=== PATIENT | male | born 1955 | race African-American/Black ===

== ENCOUNTER 2018-04-22 00:44 | Inpatient (IN) | payer OTHER ==
[2018-04-22 01:07] LABS: #Basophils 0.1 thou/uL (0.0-0.2); #Eosinphils 0.6 thou/uL (0.0-0.7); #Lymphocytes 3.3 thou/uL (1.20-3.40); #Monocytes 0.7 thou/uL (0.11-0.59); #Neutrophils 4.1 thou/uL (1.40-6.50); %Basophils 1.4 % (0.0-1.0); %Eosinophils 6.5 % (0.0-10.0); %Lymphocytes 37.4 % (21.0-51.0); %Neutrophils 46.6 % (42.0-75.0); Hemoglobin 13.2 g/dL (14.0-18.0); Mean Corpuscular Hemoglobin 26.5 pg (27.0-31.0); Mean Platelet Volume 9.3 fL (7.4-10.4); Platelet Count 180 thou/uL (130-400); Red Blood Cell (RBC) Count 4.96 mill/uL (4.70-6.10); White Blood Cell (WBC) Count 8.8 thou/uL (4.8-10.8)
[2018-04-22 01:15] LABS: Prothrombin Time 13.3 SEC (12.0-14.7)
[2018-04-22] MEDS ORDERED: Nitroglycerin 2% Ointment 1 INCH/1 GM Packet ONE (01:27)
[2018-04-22 01:29] LABS: ALT (SGPT) 18 U/L (8-55); AST (SGOT) 21 U/L (5-34); Albumin 4.2 g/dL (3.4-4.8); Alkaline Phosphatase 67 U/L (40-150); Anion Gap 12 mmol/L (10-20); BUN (Urea Nitrogen) 28 mg/dL (8.4-25.7); Bilirubin, Total 0.4 mg/dL (0.2-1.2); CK (CPK) 163 U/L (30-200); Calc. Creatinine Clearance 0 mL/min (70-130); Calcium 9.7 mg/dL (7.8-10.44); Carbon Dioxide 28 mmol/L (23-31); Chloride 102 mmol/L (98-107); Estimated GFR-MDRD 57; Globulin 3.8 g/dL (2.4-3.5); Glucose 145 mg/dL (80-115); Sodium 138 mmol/L (136-145)
[2018-04-22 01:32] LABS: CKMB 2.9 ng/mL (0-6.6); Troponin I 0.156 ng/mL (< 0.028)
[2018-04-22] MEDS ORDERED: Nitroglycerin 0.4 MG TAB (25 Tab Bottle) ONE (02:00)
[2018-04-22] MEDS ORDERED: Enoxaparin Sodium 100 MG/ML SYRINGE SC SCH (02:15)
[2018-04-22] MEDS ORDERED: Enoxaparin Sodium 60 MG/0.6 ML SYRINGE SC SCH (02:15)
[2018-04-22] MEDS ORDERED: Ondansetron ODT 4 MG TAB SL PRN (04:19)
[2018-04-22] MEDS ORDERED: Ondansetron PF 4 MG/2 ML Vial IVP PRN ×2 (04:19→07:06)
[2018-04-22] MEDS ORDERED: Acetaminophen 325 MG TAB PO PRN (04:19)
[2018-04-22] MEDS ORDERED: Nitroglycerin 0.4 MG TAB (25 Tab Bottle) SL PRN (04:20)
[2018-04-22] MEDS ORDERED: Sodium Chloride 0.9% 1,000 ML IV SCH (04:30)
[2018-04-22 05:10] LABS: Troponin I 0.188 ng/mL (< 0.028)
[2018-04-22] MEDS ORDERED: Dextrose 50% Abboject 50 ML SYRINGE SLOW IVP PRN (06:58)
[2018-04-22] MEDS ORDERED: Dextrose 5% in Water 1,000 ML IV PRN (06:58)
[2018-04-22] MEDS ORDERED: Insulin Regular 300 UNITS/3 ML VIAL SC PRN (06:58)
[2018-04-22] MEDS ORDERED: Eucerin (Mineral Oil/Petrolatum,White) 30 gm Jar TOP PRN (06:58)
[2018-04-22] MEDS ORDERED: Chloraseptic Spray 180 ml Bottle PO PRN (06:58)
[2018-04-22] MEDS ORDERED: Artificial Tears 18 DROP/0.9 ML EA EYE PRN (06:58)
[2018-04-22] MEDS ORDERED: hydrALAZINE 20 MG/ML VIAL SLOW IVP PRN (06:58)
[2018-04-22] MEDS ORDERED: Sodium Chloride 0.65% Nasal 44 ML BOT EA NARE PRN (06:58)
[2018-04-22] MEDS ORDERED: Loratadine 10 MG TAB PO PRN (06:58)
[2018-04-22] MEDS ORDERED: Diabetic Tussin 200 MG/10 ML UDCUP PO PRN (06:58)
[2018-04-22] MEDS ORDERED: Nitroglycerin 0.4 MG TAB (25 Tab Bottle) PO PRN (06:58)
[2018-04-22] MEDS ORDERED: Senokot S 8.6-50 MG TAB PO PRN (07:06)
[2018-04-22] MEDS ORDERED: Bisacodyl 10 MG SUPP PR PRN (07:06)
[2018-04-22] MEDS ORDERED: Loperamide HCl 2 MG CAP PO PRN (07:06)
[2018-04-22] MEDS ORDERED: Zolpidem Tartrate 5 MG TAB PO PRN (07:06)
[2018-04-22] MEDS ORDERED: Ondansetron ODT 4 MG TAB PO PRN (07:06)
[2018-04-22 07:34] LABS: Cardiac Risk 4.3 (Less than 4.5)
[2018-04-22 08:01] LABS: Troponin I 0.165 ng/mL (< 0.028)
--- NOTE | 2018-04-22 08:21 | RAD ---
CHEST ONE VIEW: History: Chest pain Comparison: 2014 FINDINGS: Heart size is mildly enlarged. Mild pulmonary venous congestion. No pneumothorax. No acute osseous abnormality. IMPRESSION: Cardiomegaly with mild pulmonary venous congestion. POS: [facility]
[2018-04-22] MEDS: Insulin Regular 300 UNITS/3 ML VIAL SC SCH ×2 (10:26→16:58)
[2018-04-22] MEDS: DorzolamidE/Timolol 2%/0.5% Ophth Soln 10 ml Bottle EA EYE SCH ×3 (10:27→21:01)
[2018-04-22] MEDS: Brimonidine Tartrate 0.2% Ophth Soln 5 ml Bottle EA EYE SCH ×3 (10:27→21:00)
[2018-04-22] MEDS: Amlodipine 10 MG TAB PO SCH (10:28)
[2018-04-22] MEDS: AcetaZOLAMIDE 250 MG TAB PO SCH ×2 (10:28→21:01)
[2018-04-22] MEDS: Allopurinol 300 MG TAB PO SCH (10:28)
[2018-04-22] MEDS: Aspirin 325 MG TAB PO SCH (10:29)
[2018-04-22] MEDS: Enoxaparin Sodium 40 MG/0.4 ML SYRINGE SC SCH (10:29)
[2018-04-22] MEDS: Famotidine 20 MG TAB PO SCH ×2 (10:29→21:03)
[2018-04-22] MEDS: Gabapentin 300 MG CAP PO SCH ×2 (10:30→21:04)
[2018-04-22] MEDS: Furosemide 40 MG TAB PO SCH (10:30)
--- NOTE | 2018-04-22 11:49 | HP ---
PRIMARY CARE PHYSICIAN: Dr. Kalpana Barbour. REASON FOR ADMISSION: Chest pain, elevated troponin. HISTORY OF PRESENT ILLNESS: A 62-year-old -[place] male who has underlying history of diabet es type 2, hypertension, dyslipidemia, morbid obesity, and coronary artery disease who presented to e mergealy room with complaint of chest pain. He described chest pain in substernal area which was sta rted yesterday evening time when he was seated in his chair. It was 4/10 in intensity. He was uncom fortable. He started walking in his room and that chest pain subsided and again when he sat to chair , he was having recurrent chest pain. He was not having any associated nausea or vomiting, but he wa s feeling mild shortness of breath. Pain was recurrent. Patient tried Pepto-Bismol at home without any significant help. He was feeling strange and that is why he decided to come to the emergency jo m for evaluation. In the emergency room, EKG was nonspecific. His troponin was slightly elevated. The patient was obs erved on observation floor. When I saw this morning, at that time, patient was chest pain free. He denies any immobilization. He denies any calf tenderness. He denies any pleurisy. He denies any he moptysis. He denies any fever or chills. He denies any upper respiratory infection. He denies any muscle tenderness. REVIEW OF SYSTEMS: The following complete review of systems was negative, unless otherwise mentioned in the HPI or below: Constitutional: Weight loss or gain, ability to conduct usual activities. Skin: Rash, itching. Eyes: Double vision, pain. ENT/Mouth: Nose bleeding, neck stiffness, pain, tenderness. Cardiovascular: Palpitations, dyspnea on exertion, orthopnea. Respiratory: Shortness of breath, wheezing, cough, hemoptysis, fever or night sweats. Gastrointestinal: Poor appetite, abdominal pain, heartburn, nausea, vomiting, constipation, or diarr hea. Genitourinary: Urgency, frequency, dysuria, nocturia. Musculoskeletal: Pain, swelling. Neurologic/Psychiatric: Anxiety, depression. Allergy/Immunologic: Skin rash, bleeding tendency. Please see my HPI for pertinent positive and negative. All other review of systems reviewed and nega tive except as mentioned in the HPI. PAST MEDICAL HISTORY: Diabetes type 2, hypertension, dyslipidemia, morbid obesity, gout, multiple ke loid, rheumatoid arthritis, osteoarthritis, glaucoma. PAST SURGICAL HISTORY: Cholecystectomy, tonsillectomy. PAST PSYCHIATRIC HISTORY: Reviewed and negative. SOCIAL HISTORY: Patient is and lives at home with his . No history of smoking. No hist ory of alcohol or other illicit drug abuse. FAMILY HISTORY: Diabetes and hypertension runs among several family members. Mother had a cancer an d she when patient was 8 years old. ALLERGIES: CODEINE. EMERGENCY ROOM COURSE: Patient is given Lovenox 1 mg per kg, nitroglycerin 0.4 mg sublingual, aspiri n 324 mg and nitropatch was applied. CURRENT HOME MEDICATIONS: Diamox 250 mg p.o. b.i.d., allopurinol 300 mg p.o. daily, amlodipine 10 mg p.o. daily, aspirin 81 mg p.o. daily, brimonidine ophthalmic drop t.i.d., dorzolamide with timolol o phthalmic drop t.i.d., TriCor 160 mg p.o. at bedtime, Lasix 40 mg p.o. daily, gabapentin 300 mg p.o. b.i.d., Humulin R 12 units subcu b.i.d., Xalatan eye drops at bedtime, metformin 500 mg p.o. b.i.d., pravastatin 80 mg p.o. at bedtime, quinapril 40 mg p.o. daily. PHYSICAL EXAMINATION: VITAL SIGNS: On arrival, blood pressure 148/78, pulse 76, respiratory rate 20, temperature 98.4, sat uration 100% on room air, weight 146.4 kilograms. GENERAL: Patient is currently alert, awake, no obvious acute distress. HEAD: Normocephalic, atraumatic. EYES: Pupils round, reactive to light. Extraocular muscle intact. ENT: Oropharynx within normal limits. Moist mucous membranes, no oral lesion, no pharyngeal erythem a, no exudate. NECK: Supple, no JVD, no thyromegaly, no carotid bruit, no jugular venous distention. LUNGS: Clear to auscultation without any rhonchi or rales. CARDIAC: S1, S2 regular. No murmur, no gallop, no rub. ABDOMEN: Obesity present. Bowel sounds present, nontender, nondistended. No organomegaly, no mass, no suprapubic tenderness. BACK: Examination unremarkable, no CVA tenderness. EXTREMITIES: Upper extremity passive movements of all joints are normal. Lower extremities: No ravinder ma. Good distal pulsation. SKIN: No skin rash. HEMATOLOGICAL SYSTEM: No lymphadenopathy. NEUROLOGIC: Nonfocal examination. IMAGING DATA AND SIGNIFICANT LABORATORY DATA: EKG showing normal sinus rhythm, low voltage QRS compl ex. CBC: WBC 8.8, hemoglobin 13.0, platelet 180. INR 1.0. BMP: Sodium 138, potassium 4.0, chlori de 102, carbon dioxide 28, anion gap 12, BUN 28, creatinine 1.50, glucose 145, calcium 9.7. LFT: T 21, ALT 18, alkaline phosphatase 67, albumin 4.2. CK 163, CK-MB 2.9, troponin 0.156 and then 0.188 . BNP 50.2. Triglyceride 106, cholesterol 164, LDL 105, HDL 38. Chest x-ray based on my review, no acute cardiopulmonary process. ASSESSMENT AND PLAN/IMPRESSION: 1. Chest pain. This patient's chest pain is atypical. He has multiple risk factors for coronary ar antoni disease. He has nonspecific EKG changes. His troponin is indeterminant range. Based on overal l scenario, patient has high JEFFERSON score and that is why we decided to consult Cardiology. Cardiology evaluated this patient and planned for stress test. We will also obtain echocardiography. For risk stratification, we did lipid profile check which is within normal limit. At this point, the patient is chest pain free. We will continue with aspirin 325 mg p.o. daily, Lipitor 20 mg p.o. at bedtime. Patient already received Lovenox 1 mg per kg in the emergency room. 2. Hypertension. Continue amlodipine 10 mg p.o. daily, Lasix 40 mg p.o. daily, quinapril 40 mg p.o. daily. 3. Glaucoma. Continue Diamox 250 mg p.o. b.i.d. along with dorzolamide, timolol ophthalmic drop, br imonidine ophthalmic drop and Xalatan eyedrop as per home dosage. 4. Dyslipidemia, currently within normal limit. Continue pravastatin 80 mg p.o. at bedtime. 5. Diabetic neuropathy. Continue gabapentin 300 mg p.o. b.i.d. 6. Gout. Continue allopurinol 300 mg p.o. daily. 7. Chronic kidney disease stage 3. Monitor renal function and avoid nephrotoxic agent. 8. Elevated troponin. We will obtain echocardiography. 9. Morbid obesity with BMI of 51. Dietary education given, weight loss education given. Healthy li festyle measures discussed with the patient. 10. Deep venous thrombosis prophylaxis, Lovenox 40 mg subcu daily. 11. Gastrointestinal prophylaxis, Pepcid 20 mg p.o. b.i.d. CODE STATUS: Patient is FULL CODE. Patient's is surrogate decision maker. Disposition plan based on above-mentioned investigation result.
[2018-04-22] MEDS ORDERED: Regadenoson 0.4 MG/5 ML SYRINGE ONE (12:13)
[2018-04-22] MEDS: Acetaminophen 325 MG TAB PO PRN (16:57)
--- NOTE | 2018-04-22 20:49 | CON ---
DATE OF CONSULTATION: 04/22/2018 INDICATION FOR CONSULTATION: A 62-year-old patient with chest pain and slightly abnormal cardiac enz ymes. HISTORY OF PRESENT ILLNESS: This is a very pleasant 62-year-old gentleman who has a history of type 2 diabetes, hypertension, dyslipidemia, obesity, and some question of coronary artery disease; valentina[place] r, there is no documentation that he has had coronary artery disease in the past. He has not had any cardiac catheterization that he is aware of. Yesterday, he started having some burning-type sensati on in the right chest area. He got up and walked around and the pain improved. He then sat back [place] n, and the pain then returned. He also had some shortness of breath associated with it and then he p resented to the emergency room. Otherwise, he has been asymptomatic. He has had no further discomfo rt. His cardiac enzymes are indeterminate. They did increase from 0.156 up to 0.188 and now decreas ed back down to 0.165. MBs were negative. He does have hypercholesterolemia. LDL was 105. EKG is nonspecific. PAST MEDICAL HISTORY: Significant for hypertension, diabetes, hypercholesterolemia, obesity. He has had keloid removal from the left side of his face. He has arthritis. He has glaucoma. He has had bilateral cataract surgery. He had a history of pneumonia about 12 years ago. SOCIAL HISTORY: He is . He has no history of tobacco abuse or alcohol use. He said he did s moke for about a year or two, but that was many years ago. FAMILY HISTORY: Unremarkable for any early coronary artery disease. He does have some history of di abetes and hypertension in the family. MEDICATIONS PRIOR TO ADMISSION: Diamox, allopurinol, amlodipine, aspirin, brimonidine ophthalmic rui ps, dorzolamide ophthalmic drops with timolol, TriCor, Lasix, gabapentin, Humulin insulin, Xalatan op hthalmic drops, metformin, pravastatin, quinapril. ALLERGIES: He is allergic to CODEINE. REVIEW OF SYSTEMS: Twelve-point review of systems is relatively unremarkable except he does wear gla sses, he has left knee pain, and he complained of the right-sided chest discomfort. Otherwise, his r eview of systems is unremarkable. PHYSICAL EXAMINATION: GENERAL: Reveals a morbidly obese gentleman. VITAL SIGNS: Blood pressure 136/69, heart rate is 72 and regular. He is afebrile. Respiratory rate is 20, O2 saturation 98%. HEENT: Shows the head to be normocephalic and atraumatic. NECK: Carotid pulses are present. There were no significant bruits noted. There is no obvious JVD. The thyroid did not appear to be enlarged. CHEST: Clear to auscultation without rales, rhonchi, or wheezing. CARDIOVASCULAR: Regular rate and rhythm. Heart sounds are somewhat distant. I cannot hear any S3 o r S4 nor could I hear any significant murmurs, heaves, thrills, bruits, or rubs. ABDOMEN: Morbid obesity. Positive bowel sounds are present. I cannot palpate any particular masses . There is no tenderness noted. EXTREMITIES: No clubbing, cyanosis. He had very trace edema. He also had positive pedal pulses. SKIN: Warm and dry. NEUROLOGIC: Appears to be intact. He has normal strength and tone. LABORATORY DATA: Hemoglobin of 13.2, WBC of 8.8, platelet count 180,000. Creatinine is 1.5 with a B UN of 28. Blood sugar is 145 to 215. Potassium is 4. MBs are 2.9. Troponin I is as noted above. LDL was 105, HDL was 38, and triglyceride level was 106. IMPRESSION: 1. Morbidly obese gentleman with risk factors for coronary artery disease. He complained of right-s ided burning-type sensation in the chest with some indeterminate cardiac enzymes. He will undergo st ress testing to rule out evidence for underlying coronary artery disease. If any is found, he will n eed to undergo a cardiac catheterization. 2. Diabetes. This will be dealt with by the primary care service. 3. Hypertension. This is under good control at this time and I would agree with the present medicat ions. 4. Diabetes. 5. Hypercholesterolemia. He should continue on some statin medications. I have advised the patient that he needs to lose probably 100 to 150 pounds. We will continue to follow the patient with you. Further recommendations will depend on the results of the stress test. Also, please note, he does h ave some mild chronic kidney disease with a creatinine of 1.5, most likely related to his diabetes.
[2018-04-22] MEDS: Fenofibrate Nanocrystallized 145 MG TAB PO SCH (21:03)
[2018-04-22] MEDS: Atorvastatin Calcium 20 MG TAB PO SCH (21:03)
[2018-04-22] MEDS: Insulin Regular 300 UNITS/3 ML VIAL SC PRN (21:05)
[2018-04-22] MEDS: Latanoprost 0.005% Ophth Soln 2.5 ml Bottle EA EYE SCH (22:00)
[2018-04-23] MEDS: Insulin Regular 300 UNITS/3 ML VIAL SC SCH ×2 (09:17→16:29)
[2018-04-23] MEDS: AcetaZOLAMIDE 250 MG TAB PO SCH ×2 (09:17→20:31)
[2018-04-23] MEDS: Amlodipine 10 MG TAB PO SCH (09:17)
[2018-04-23] MEDS: Allopurinol 300 MG TAB PO SCH (09:18)
[2018-04-23] MEDS: Aspirin 325 MG TAB PO SCH (09:18)
[2018-04-23] MEDS: Acetaminophen 325 MG TAB PO PRN (09:19)
[2018-04-23] MEDS: Famotidine 20 MG TAB PO SCH ×2 (09:19→20:31)
[2018-04-23] MEDS: Gabapentin 300 MG CAP PO SCH ×2 (09:19→20:31)
[2018-04-23] MEDS: Enoxaparin Sodium 40 MG/0.4 ML SYRINGE SC SCH (09:19)
[2018-04-23] MEDS: Furosemide 40 MG TAB PO SCH (09:19)
[2018-04-23] MEDS: Brimonidine Tartrate 0.2% Ophth Soln 5 ml Bottle EA EYE SCH ×3 (09:20→20:31)
[2018-04-23] MEDS: DorzolamidE/Timolol 2%/0.5% Ophth Soln 10 ml Bottle EA EYE SCH ×3 (09:20→20:31)
--- NOTE | 2018-04-23 09:27 | NM ---
NUCLEAR MEDICINE STRESS WITH EF AND WALL MOTION: HISTORY: Chest pain. Hypertension. Hyperlipidemia. TECHNIQUE: The patient was administered 33 mCi of Technetium 99m sestamibi for rest and stress imaging. FINDINGS: There is reversibility involving the anteroseptal left ventricle near the apex. TID is 1.25. End-diastolic volume is 105 mL. End-systolic volume is 48 mL. CARDIAC GATING: Normal motion and thickening. 55% ejection fraction. IMPRESSION: Reversibility involving the anteroseptal wall of the left ventricle. POS: [facility]
--- NOTE | 2018-04-23 09:31 | EKG ---
Test Reason : Blood Pressure : / mmHG Vent. Rate : 068 BPM Atrial Rate : 068 BPM P-R Int : 140 ms QRS Dur : 086 ms QT Int : 394 ms P-R-T Axes : 062 039 032 degrees QTc Int : 418 ms Normal sinus rhythm with sinus arrhythmia Low voltage QRS Nonspecific T wave abnormality Abnormal ECG When compared with ECG of 22-APR-2018 00:51, (Unconfirmed) No significant change was found Confirmed by DIOR WALL ([id number]) on 04/23/2018 9:31:16 AM Referred By: Confirmed By:DIOR WALL
--- NOTE | 2018-04-23 10:28 | PDOC.PN ---
- Subjective Encounter Start Date: 04/23/18 Encounter Start Time: 07:30 -: old records requested/rev Patient seen and examined. No new complaints. No overnight events last night he had chest pain - Objective Resuscitation Status: Resuscitation Status FULL:Full Resuscitation MAR Reviewed: Yes Vital Signs & Weight: Vital Signs (12 hours) Temp Pulse Resp BP BP Pulse Ox 04/23/18 09:18 144/68 H 04/23/18 09:17 80 144/68 H 04/23/18 09:07 97.7 F 80 16 144/68 H 98 04/23/18 04:15 97.8 F 63 20 102/50 L 97 04/22/18 23:41 97.6 F 59 L 12 107/55 L 95 Weight Weight 367 lb I&O: 04/22/18 04/23/18 04/24/18 06:59 06:59 06:59 Intake Total 100 1564 Output Total 450 1625 Balance -350 -61 Result Diagrams: 04/22/18 00:57 04/22/18 00:57 Additional Labs: Accuchecks 04/23/18 04/22/18 04/22/18 06:13 20:22 16:40 POC Glucose 196 H 243 H 238 H Radiology Reviewed by me: Yes (stress test abnormal) EKG Reviewed by me: Yes (nsr) Phys Exam - Physical Examination Constitutional: NAD HEENT: PERRLA, moist MMs, sclera anicteric Neck: no JVD, supple Respiratory: no wheezing, no rales, no rhonchi Cardiovascular: RRR, no significant murmur, no rub Gastrointestinal: soft, non-tender, no distention, positive bowel sounds Musculoskeletal: no edema, pulses present Neurological: non-focal, normal sensation, moves all 4 limbs Lymphatic: no nodes Psychiatric: normal affect, A&O x 3 Skin: no rash, normal turgor Dx/Plan (1) Elevated troponin Code(s): R74.8 - ABNORMAL LEVELS OF OTHER SERUM ENZYMES Status: Acute (2) Chest pain Code(s): R07.9 - CHEST PAIN, UNSPECIFIED Status: Acute (3) Abnormal stress test Status: Acute (4) Diabetes type 2, controlled Code(s): E11.9 - TYPE 2 DIABETES MELLITUS WITHOUT COMPLICATIONS Status: Chronic (5) Diabetic neuropathy Code(s): E11.40 - TYPE 2 DIABETES MELLITUS WITH DIABETIC NEUROPATHY, UNSP Status: Chronic (6) Dyslipidemia Code(s): E78.5 - HYPERLIPIDEMIA, UNSPECIFIED Status: Chronic (7) Glaucoma Code(s): H40.9 - UNSPECIFIED GLAUCOMA Status: Chronic (8) Gout Code(s): M10.9 - GOUT, UNSPECIFIED Status: Chronic (9) HTN (hypertension) Code(s): I10 - ESSENTIAL (PRIMARY) HYPERTENSION Status: Chronic (10) Morbid obesity with BMI of 50.0-59.9, adult Code(s): E66.01 - MORBID (SEVERE) OBESITY DUE TO EXCESS CALORIES; Z68.43 - BODY MASS INDEX (BMI) 50-59.9, ADULT Status: Chronic - Plan cont current plan of care, plan discussed w/ family * cardiology on board for abnormal stress test result * may need cardiac cath * medication reviewed as below * symptomatic treatment. Review of Systems - Review of Systems ENT: negative: Ear Pain, Ear Discharge, Nose Pain, Nose Discharge, Nose Congestion, Mouth Pain, Mouth Swelling, Throat Pain, Throat Swelling, Other Respiratory: negative: Cough, Dry, Shortness of Breath, Hemoptysis, SOB with Excertion, Pleuritic Pain, Sputum, Wheezing Cardiovascular: negative: chest pain, palpitations, orthopnea, paroxysmal nocturnal dyspnea, edema, light headedness, other Gastrointestinal: negative: Nausea, Vomiting, Abdominal Pain, Diarrhea, Constipation, Melena, Hematochezia, Other Genitourinary: negative: Dysuria, Frequency, Incontinence, Hematuria, Retention , Other Musculoskeletal: negative: Neck Pain, Shoulder Pain, Arm Pain, Back Pain, Hand Pain, Leg Pain, Foot Pain, Other Skin: negative: Rash, Lesions, David, Bruising, Other - Medications/Allergies Allergies/Adverse Reactions: Allergies Allergy/AdvReac Type Severity Reaction Status Date / Time codeine Allergy itching Verified 04/22/18 04:32 Medications: Current Medications Acetaminophen (Tylenol) 650 mg PO Q4H PRN PRN Reason: Headache/Fever/Mild Pain (1-3) Last Admin: 04/23/18 09:19 Dose: 650 mg Acetazolamide (Diamox) 250 mg PO BID [facility] Last Admin: 04/23/18 09:17 Dose: 250 mg Allopurinol (Zyloprim) 300 mg PO DAILY [facility] Last Admin: 04/23/18 09:18 Dose: 300 mg Amlodipine Besylate (Norvasc) 10 mg PO DAILY [facility] Last Admin: 04/23/18 09:17 Dose: 10 mg Artificial Tears (Tears Naturale) 0 drop EA EYE PRN PRN PRN Reason: Dry Eyes Aspirin (Aspirin) 325 mg PO DAILY [facility] Last Admin: 04/23/18 09:18 Dose: 325 mg Atorvastatin Calcium (Lipitor) 20 mg PO HS [facility] Last Admin: 04/22/18 21:03 Dose: 20 mg Bisacodyl (Dulcolax) 10 mg NC DAILYPRN PRN PRN Reason: Constipation Brimonidine Tartrate (Alphagan 0.2% Ophth Soln) 1 drop EA EYE TID [facility] Last Admin: 04/23/18 09:20 Dose: 1 drop Dextrose/Water (Dextrose 50%) 25 gm SLOW IVP PRN PRN PRN Reason: Hypoglycemia Dorzolamide/Timolol (Cosopt 2-0.5% Ophth Soln) 1 drop EA EYE TID [facility] Last Admin: 04/23/18 09:20 Dose: 1 drop Enoxaparin Sodium (Lovenox) 40 mg SC 0900 [facility] Last Admin: 04/23/18 09:19 Dose: 40 mg Famotidine (Pepcid) 20 mg PO BID [facility] Last Admin: 04/23/18 09:19 Dose: 20 mg Fenofibrate (Tricor) 145 mg PO [facility] Last Admin: 04/22/18 21:03 Dose: 145 mg Furosemide (Lasix) 40 mg PO DAILY [facility] Last Admin: 04/23/18 09:19 Dose: 40 mg Gabapentin (Neurontin) 300 mg PO BID [facility] Last Admin: 04/23/18 09:19 Dose: 300 mg Glucagon (Glucagon) 1 mg IM PRN PRN PRN Reason: Hypoglycemia Guaifenesin (Robitussin Sf) 200 mg PO Q4H PRN PRN Reason: Cough Hydralazine HCl (Apresoline) 10 mg SLOW IVP Q4H PRN PRN Reason: Systolic BP > 180 Dextrose/Water (D5w) 1,000 mls @ 0 mls/hr IV .Q0M PRN PRN Reason: Hypoglycemia Insulin Human Regular (Humulin R) 12 units SC BID-[facility] Last Admin: 04/23/18 09:17 Dose: 12 unit Insulin Human Regular (Humulin R) 0 units SC .MODERATE SLIDING SC PRN PRN Reason: Moderate Correctional Scale Insulin Human Regular (Humulin R) 0 units SC .BEDTIME SLIDING SC PRN PRN Reason: Bedtime Correctional Scale Last Admin: 04/22/18 21:05 Dose: 2 unit Latanoprost (Xalatan 0.005% Ophth Soln) 1 drop EA EYE HS [facility] Last Admin: 04/22/18 22:00 Dose: Not Given Loperamide HCl (Imodium) 2 mg PO PRN PRN PRN Reason: Diarrhea/Loose Stools Loratadine (Claritin) 10 mg PO DAILYPRN PRN PRN Reason: Sinus Symptoms Mineral Oil/White Petrolatum (Eucerin Cream) 0 gm TOP BIDPRN PRN PRN Reason: Dry Skin Nitroglycerin (Nitrostat) 0.4 mg PO Q5MIN PRN PRN Reason: Chest Pain Ondansetron HCl (Zofran Odt) 4 mg PO Q6H PRN PRN Reason: Nausea/Vomiting Ondansetron HCl (Zofran) 4 mg IVP Q6H PRN PRN Reason: Nausea/Vomiting Phenol (Chloraseptic [place] 180 Ml Bot) 0 ml PO PRN PRN PRN Reason: Sore Throat Quinapril HCl (Accupril) 40 mg PO DAILY [facility] Last Admin: 04/23/18 09:18 Dose: 40 mg Senna/Docusate Sodium (Senokot S) 2 tab PO BID PRN PRN Reason: Constipation Sodium Chloride ([place] Nasal [place] 0.65%) 0 ml EA NARE QIDPRN PRN PRN Reason: Nasal Congestion Zolpidem Tartrate (Ambien) 5 mg PO HSPRN PRN PRN Reason: Insomnia
[2018-04-23] MEDS ORDERED: Communication Order-Pharmacy FS SCH (11:15)
--- NOTE | 2018-04-23 11:19 | PDOC.CTH ---
Cardiology Progress Note - Subjective Pt. seen and eval. by me. No new events overnight. Stress test abnormal . Reversible ischemia in the anterior. - Objective Vital Signs Temp Pulse Resp BP BP Pulse Ox 04/23/18 09:18 144/68 H 04/23/18 09:17 80 144/68 H 04/23/18 09:07 97.7 F 80 16 144/68 H 98 04/23/18 04:15 97.8 F 63 20 102/50 L 97 04/22/18 23:41 97.6 F 59 L 12 107/55 L 95 Weight 367 lb 04/22/18 04/23/18 04/24/18 06:59 06:59 06:59 Intake Total 100 1564 240 Output Total 450 1625 Balance -350 -61 240 - Physical Examination General/Neuro: alert & oriented x3 Neck: carotid US brisk Lungs: CTA Heart: RRR Abdomen: NT/ND - Telemetry Telemetry Rhythm: NSR - Labs Result Diagrams: 04/22/18 00:57 04/22/18 00:57 Troponin/CKMB CK-MB (CK-2) 2.9 ng/mL (0-6.6) 04/22/18 00:57 Troponin I 0.165 ng/mL (< 0.028) H 04/22/18 07:23 - Assessment/Plan 1.Chest pain, abn. stress test. Plan for cardiac cath in AM. procedure and risks explained to pt. 2. CKdz.Add IV fluids prior to the cath. 3. Morbid obesity. 4. DM Peripheral neuropathy 5. HTN
[2018-04-23] MEDS: Sodium Chloride 0.45% 1,000 ML IV SCH ×2 (11:57→23:52)
[2018-04-23] MEDS: Fenofibrate Nanocrystallized 145 MG TAB PO SCH (20:31)
[2018-04-23] MEDS: Atorvastatin Calcium 20 MG TAB PO SCH (20:31)
[2018-04-23] MEDS: Latanoprost 0.005% Ophth Soln 2.5 ml Bottle EA EYE SCH (20:32)
[2018-04-23] MEDS: Insulin Regular 300 UNITS/3 ML VIAL SC PRN (20:38)
[2018-04-24] MEDS: Acetaminophen 325 MG TAB PO PRN ×2 (03:27→20:39)
[2018-04-24] MEDS: Amlodipine 10 MG TAB PO SCH (06:02)
[2018-04-24] MEDS: Aspirin 325 MG TAB PO SCH (06:02)
[2018-04-24] MEDS: AcetaZOLAMIDE 250 MG TAB PO SCH ×2 (06:02→20:35)
[2018-04-24] MEDS: Allopurinol 300 MG TAB PO SCH (06:02)
[2018-04-24] MEDS: Gabapentin 300 MG CAP PO SCH ×2 (06:03→20:36)
[2018-04-24] MEDS: Famotidine 20 MG TAB PO SCH ×2 (06:03→20:35)
[2018-04-24 08:03] LABS: Anion Gap 9 mmol/L (10-20); BUN (Urea Nitrogen) 19 mg/dL (8.4-25.7); Calc. Creatinine Clearance 146 mL/min (70-130); Calcium 9.3 mg/dL (7.8-10.44); Carbon Dioxide 25 mmol/L (23-31); Chloride 105 mmol/L (98-107); Estimated GFR-MDRD 74; Glucose 242 mg/dL (80-115); Potassium 3.9 mmol/L (3.5-5.1); Sodium 135 mmol/L (136-145)
[2018-04-24] MEDS: Insulin Regular 300 UNITS/3 ML VIAL SC SCH ×2 (08:17→16:58)
[2018-04-24] MEDS: Furosemide 40 MG TAB PO SCH (08:19)
[2018-04-24] MEDS: Brimonidine Tartrate 0.2% Ophth Soln 5 ml Bottle EA EYE SCH ×3 (08:21→20:35)
[2018-04-24] MEDS ORDERED: Lidocaine 1% (PF) 30 ML VIAL ONE (08:45)
[2018-04-24] MEDS: DorzolamidE/Timolol 2%/0.5% Ophth Soln 10 ml Bottle EA EYE SCH ×3 (08:50→20:36)
[2018-04-24] MEDS ORDERED: Nitroglycerin 100MG/250ML BOT 250 ML ONE (09:29)
[2018-04-24] MEDS ORDERED: Verapamil 5 MG/2 ML VIAL ONE (09:29)
[2018-04-24] MEDS ORDERED: Iopamidol 370 76% 100 ML VIAL ONE (09:29)
[2018-04-24] MEDS ORDERED: Heparin 10,000 UNITS/1 ML VIAL ONE (09:29)
[2018-04-24] MEDS ORDERED: Nitroglycerin 0.4 MG TAB (25 Tab Bottle) SL PRN (11:05)
[2018-04-24] MEDS ORDERED: Sodium Chloride 0.9% 200 ML IV PRN (11:05)
--- NOTE | 2018-04-24 11:30 | PDOC.PN ---
- Subjective Encounter Start Date: 04/24/18 Encounter Start Time: 07:15 pt had cardiac cath and found with 3 vessel cad, he is feeling fine this morning - Objective Resuscitation Status: Resuscitation Status FULL:Full Resuscitation MAR Reviewed: Yes Vital Signs & Weight: Vital Signs (12 hours) Temp Pulse Resp BP BP BP Pulse Ox 04/24/18 11:19 77 14 04/24/18 11:18 97.8 F 75 18 114/71 97 04/24/18 10:28 86 14 158/79 H 98 04/24/18 07:34 98 F 63 20 119/56 L 96 04/24/18 03:10 98.2 F 70 20 132/68 98 Weight Weight 367 lb 1.6 oz I&O: 04/23/18 04/24/18 04/25/18 06:59 06:59 06:59 Intake Total 1564 2931 Output Total 1625 1025 Balance -61 1906 Result Diagrams: 04/22/18 00:57 04/24/18 07:32 Additional Labs: Accuchecks 04/24/18 04/24/18 04/23/18 10:38 06:01 20:33 POC Glucose 233 H 233 H 307 H 04/23/18 04/23/18 16:21 11:55 POC Glucose 231 H 251 H EKG Reviewed by me: Yes (nsr) Phys Exam - Physical Examination Constitutional: NAD HEENT: PERRLA, moist MMs, sclera anicteric Neck: no JVD, supple Respiratory: no wheezing, no rales, no rhonchi Cardiovascular: RRR, no significant murmur, no rub Gastrointestinal: soft, non-tender, no distention, positive bowel sounds Musculoskeletal: no edema, pulses present Neurological: non-focal, normal sensation, moves all 4 limbs Lymphatic: no nodes Psychiatric: normal affect, A&O x 3 Skin: no rash, normal turgor Dx/Plan (1) Abnormal stress test Status: Acute (2) Chest pain Code(s): R07.9 - CHEST PAIN, UNSPECIFIED Status: Acute (3) Diabetes type 2, controlled Code(s): E11.9 - TYPE 2 DIABETES MELLITUS WITHOUT COMPLICATIONS Status: Chronic (4) Diabetic neuropathy Code(s): E11.40 - TYPE 2 DIABETES MELLITUS WITH DIABETIC NEUROPATHY, UNSP Status: Chronic (5) Dyslipidemia Code(s): E78.5 - HYPERLIPIDEMIA, UNSPECIFIED Status: Chronic (6) Glaucoma Code(s): H40.9 - UNSPECIFIED GLAUCOMA Status: Chronic (7) Gout Code(s): M10.9 - GOUT, UNSPECIFIED Status: Chronic (8) HTN (hypertension) Code(s): I10 - ESSENTIAL (PRIMARY) HYPERTENSION Status: Chronic (9) Morbid obesity with BMI of 50.0-59.9, adult Code(s): E66.01 - MORBID (SEVERE) OBESITY DUE TO EXCESS CALORIES; Z68.43 - BODY MASS INDEX (BMI) 50-59.9, ADULT Status: Chronic - Plan cont current plan of care, plan discussed w/ family * will change to inpt status * CT surgery consulted for CABG evaluation * medication reviewed as below * symptomatic treatment * discussed with family. Review of Systems - Review of Systems Eyes: negative: Pain, Vision Change, Conjunctivae Inflammation, Eyelid Inflammation, Redness, Other ENT: negative: Ear Pain, Ear Discharge, Nose Pain, Nose Discharge, Nose Congestion, Mouth Pain, Mouth Swelling, Throat Pain, Throat Swelling, Other Respiratory: negative: Cough, Dry, Shortness of Breath, Hemoptysis, SOB with Excertion, Pleuritic Pain, Sputum, Wheezing Cardiovascular: negative: chest pain, palpitations, orthopnea, paroxysmal nocturnal dyspnea, edema, light headedness, other Gastrointestinal: negative: Nausea, Vomiting, Abdominal Pain, Diarrhea, Constipation, Melena, Hematochezia, Other Genitourinary: negative: Dysuria, Frequency, Incontinence, Hematuria, Retention , Other Musculoskeletal: negative: Neck Pain, Shoulder Pain, Arm Pain, Back Pain, Hand Pain, Leg Pain, Foot Pain, Other - Medications/Allergies Allergies/Adverse Reactions: Allergies Allergy/AdvReac Type Severity Reaction Status Date / Time codeine Allergy itching Verified 04/22/18 04:32 Medications: Current Medications Acetaminophen (Tylenol) 650 mg PO Q4H PRN PRN Reason: Headache/Fever/Mild Pain (1-3) Last Admin: 04/24/18 03:27 Dose: 650 mg Acetazolamide (Diamox) 250 mg PO BID [facility] Last Admin: 04/24/18 06:02 Dose: 250 mg Allopurinol (Zyloprim) 300 mg PO DAILY [facility] Last Admin: 04/24/18 06:02 Dose: 300 mg Amlodipine Besylate (Norvasc) 10 mg PO DAILY [facility] Last Admin: 04/24/18 06:02 Dose: 10 mg Artificial Tears (Tears Naturale) 0 drop EA EYE PRN PRN PRN Reason: Dry Eyes Aspirin (Aspirin) 325 mg PO DAILY [facility] Last Admin: 04/24/18 06:02 Dose: 325 mg Atorvastatin Calcium (Lipitor) 20 mg PO HS [facility] Last Admin: 04/23/18 20:31 Dose: 20 mg Bisacodyl (Dulcolax) 10 mg [place] DAILYPRN PRN PRN Reason: Constipation Brimonidine Tartrate (Alphagan 0.2% Ophth Soln) 1 drop EA EYE TID [facility] Last Admin: 04/24/18 08:21 Dose: 1 drop Dextrose/Water (Dextrose 50%) 25 gm SLOW IVP PRN PRN PRN Reason: Hypoglycemia Dorzolamide/Timolol (Cosopt 2-0.5% Oph Soln) 1 drop EA EYE TID [facility] Last Admin: 04/24/18 08:50 Dose: 1 drop Famotidine (Pepcid) 20 mg PO BID [facility] Last Admin: 04/24/18 06:03 Dose: 20 mg Fenofibrate (Tricor) 145 mg PO HS [facility] Last Admin: 04/23/18 20:31 Dose: 145 mg Furosemide (Lasix) 40 mg PO DAILY [facility] Last Admin: 04/24/18 08:19 Dose: Not Given Gabapentin (Neurontin) 300 mg PO BID [facility] Last Admin: 04/24/18 06:03 Dose: 300 mg Glucagon (Glucagon) 1 mg IM PRN PRN PRN Reason: Hypoglycemia Guaifenesin (Robitussin Sf) 200 mg PO Q4H PRN PRN Reason: Cough Hydralazine HCl (Apresoline) 10 mg SLOW IVP Q4H PRN PRN Reason: Systolic BP > 180 Dextrose/Water (D5w) 1,000 mls @ 0 mls/hr IV .Q0M PRN PRN Reason: Hypoglycemia Sodium Chloride (1/2 Normal Saline) 1,000 mls @ 85 mls/hr IV .[id number] [facility] Last Admin: 04/23/18 23:52 Dose: 1,000 mls Sodium Chloride (Normal Saline 0.9%) 200 mls @ 0 mls/hr IV ONE PRN PRN Reason: SBP < 90 Stop: 04/24/18 23:00 Insulin Human Regular (Humulin R) 12 units SC BID-AC [facility] Last Admin: 04/24/18 08:17 Dose: Not Given Insulin Human Regular (Humulin R) 0 units SC .MODERATE SLIDING SC PRN PRN Reason: Moderate Correctional Scale Last Admin: 04/23/18 14:06 Dose: 4 unit Insulin Human Regular (Humulin R) 0 units SC .BEDTIME SLIDING SC PRN PRN Reason: Bedtime Correctional Scale Last Admin: 04/23/18 20:38 Dose: 4 unit Latanoprost (Xalatan 0.005% Ophth Soln) 1 drop EA EYE HS [facility] Last Admin: 04/23/18 20:32 Dose: Not Given Loperamide HCl (Imodium) 2 mg PO PRN PRN PRN Reason: Diarrhea/Loose Stools Loratadine (Claritin) 10 mg PO DAILYPRN PRN PRN Reason: Sinus Symptoms Mineral Oil/White Petrolatum (Eucerin Cream) 0 gm TOP BIDPRN PRN PRN Reason: Dry Skin Miscellaneous Information (Communication Order-Pharmacy) 0 each FS ASDIR [facility] Nitroglycerin (Nitrostat) 0.4 mg SL Q5MIN PRN PRN Reason: Chest Pain Ondansetron HCl (Zofran Odt) 4 mg PO Q6H PRN PRN Reason: Nausea/Vomiting Ondansetron HCl (Zofran) 4 mg IVP Q6H PRN PRN Reason: Nausea/Vomiting Phenol (Chloraseptic [place] 180 Ml Bot) 0 ml PO PRN PRN PRN Reason: Sore Throat Quinapril HCl (Accupril) 40 mg PO DAILY [facility] Last Admin: 04/24/18 06:03 Dose: 40 mg Senna/Docusate Sodium (Senokot S) 2 tab PO BID PRN PRN Reason: Constipation Sodium Chloride ([place] Nasal [place] 0.65%) 0 ml EA NARE QIDPRN PRN PRN Reason: Nasal Congestion Sodium Chloride (Flush - Normal Saline) 10 ml IVF Q12HR [facility] Last Admin: 04/24/18 08:18 Dose: Not Given Sodium Chloride (Flush - Normal Saline) 10 ml IVF PRN PRN PRN Reason: Saline Flush Zolpidem Tartrate (Ambien) 5 mg PO HSPRN PRN PRN Reason: Insomnia
[2018-04-24] MEDS: Sodium Chloride 0.45% 1,000 ML IV SCH ×2 (12:27→16:54)
[2018-04-24] MEDS ORDERED: Communication Order-Pharmacy FS SCH (14:57)
[2018-04-24] MEDS ORDERED: Dextrose 5% in Water 1,000 ML IV PRN (15:29)
[2018-04-24] MEDS ORDERED: Dextrose 50% Abboject 50 ML SYRINGE SLOW IVP PRN (15:29)
--- NOTE | 2018-04-24 19:55 | CON ---
DATE OF CONSULTATION: 04/24/2018 REQUESTING PHYSICIAN: Dr. Mleo. PRIMARY CARE PHYSICIAN: Dr. Kalpana Barbour. CHIEF COMPLAINT: Chest pain. HISTORY OF PRESENT ILLNESS: The patient is a 62-year-old morbidly obese, diabetic black man who this past Sunday evening began having some burning pain in the right side of his chest. It waxed and wan ed over the period of next several hours, but persisted even after he went to bed and his willy delacruz insisted that he go to the hospital. On presentation here around midnight, he was found to have no obvious changes on his EKG suggestive of acute ischemia. His initial troponin about 1 in the mornin g was minimally elevated at 0.156 and did have a small rise and fall over the next 6 hours, but his p eak was only at 0.188 nuclear stress testing showed a reversible defect in the anteroseptal region wi th an EF of around 55%. Cardiac catheterization done today showed 3-vessel coronary disease includin g a very high-grade LAD lesion at about the level of the first septal vegetable buncher. The patient denies any previous such episodes of pain. He did have a sensation of not being able to really catch his b reath that was associated with this episode. His says that over the last few months he sleeps a ll the time, but she has not really noticed any change in his ability to do physical activity. He de scribes getting a little bit more tired than normal and perhaps a little bit more short of breath devin n normal, of late. PAST MEDICAL HISTORY: Significant for hypertension, diabetes, glaucoma, gout, and obesity. HOME MEDICATIONS: Regular insulin 12 units subcutaneously b.i.d. before meals, and metformin 500 mg b.i.d., quinapril 40 mg a day, Norvasc 10 mg a day, Lasix 40 mg a day, Diamox 250 mg a day, pravastat in 80 mg at bedtime, fenofibrate 160 mg at bedtime, baby aspirin a day, Neurontin 300 mg b.i.d., dorz ian/timolol drops 1 drop in each eye t.i.d., brimonidine 0.15% ophthalmic drops 1 drop each eye t .i.d., and latanoprost 1 drop each eye at bedtime here. He has been put on adult aspirin and therape utic substitution for pravastatin been switched to Lipitor 20 mg at bedtime. The patient reports itc josef with codeine and says that he has had Kathleen before without any problem. SOCIAL HISTORY: He has trivial smoking history, having quit smoking after a brief period decades ago . FAMILY HISTORY: His parents both when he was very young and he does not know what their cause o f was. He has no known history of premature coronary disease or cerebrovascular disease in his family. REVIEW OF SYSTEMS: Positive for his recent hypersomnolence. He denies any orthopnea, but has had so me shortness of breath with exertion and associated with these episodes. He has longstanding issues with edema in his left ankle with what sounds like some recurrent problems with venous stasis ulcers on the left ankle. He denies any transient eye, speech, facial or extremity symptoms consistent with TIAs. PHYSICAL EXAMINATION: GENERAL: He is a very large man in no distress. VITAL SIGNS: Height is 5 feet 11, weight is 367 pounds. Heart rates have mostly been in the 60-85 r [place] and blood pressure is mostly in the 120-150/70-80 range. His most recent heart rate and blood p ressure were 75 and 114/71 in the emergency room at presentation, they were 76 and 148/78, temperatur e is 97.8. SKIN: He has no xanthelasma. NECK: No JVD, no carotid bruits. LUNGS: Chest is clear to auscultation. CARDIOVASCULAR: He has a regular rate and rhythm. He has some keloids overlying the sternal area in the upper chest. ABDOMEN: Obese, soft and nontender. EXTREMITIES: He has palpable radial and dorsalis pedis pulses. He has what appears to be some venou s stasis pigmentation changes and some scarring from ulceration just anterior to the medial malleolus on the left side. Dorsalis pedis pulses are palpable. NEUROLOGIC: Grossly nonfocal. LABORATORY DATA: White count of 8.8, hemoglobin 13.2, hematocrit 41.2, platelets 180,000. PT was 13 .3, INR 1.0, PTT 31.0. Sodium is 138, potassium 4.0, chloride 102, CO2 of 28, glucose 145. BUN 28, creatinine 1.50 with an estimated GFR of 57, bilirubin 0.4, alkaline phosphatase 67, AST 21, ALT was 18, calcium 9.7, protein 8.0, albumin 4.2. Troponin at about 1:00 in the morning was 0.156 at about 4:30 was 0.188 and at about 7:30 was 0.165. BNP on presentation was 50.2. Fasting lipids were trigl ycerides of 106, cholesterol 164, LDL 105, HDL 38. His Accu-Cheks have mostly been in the 200-250 ra nge since hospitalization. Chest x-ray: I think this can see a little bit of calcification is aorti c knob and his vascular markings seem a little bit prominent. His stress test is as described above. His EKG shows some nonspecific ST changes. All voltages are small. I do not see any pathologic Q' s. Voltages are too small to really evaluate poor R-wave progression. His cardiac catheterization s hows a right dominant system with some very mild stenosis on the order of about 20-30% proximally and some luminal irregularity in the mid portion. There is a long 70%-80% lesion in the posterolateral branch, which is a fairly prominent vessel. His left main is normal. He has got about 75% lesion in the ostium of the circumflex with small a grooves there. There is a fairly large OM that goes out t owards the apex and bifurcates. There is a long 80%-90%. Very distally a little bit before that bif urcation. The LAD has a 95% or greater lesion that is relatively long in mid LAD just beyond the fir st septal vegetable buncher, there is a diagonal that comes off a little bit beyond that has a long 80% lesi on in it. LVEF by my estimation is about 60% with a localized area of akinesis inferiorly. Aortic p ressure on pullback was 127/66 with a mean of 94 from an LV pressure 121/4 with an EDP of 11. IMPRESSION AND RECOMMENDATIONS: Essentially 3-vessel coronary disease, although strictly speaking th e right coronary lesion is primarily in the posterolateral branch rather than affecting the PDA, most notably his very proximal essentially ostial circumflex lesion and a very high-grade LAD lesion at t he level of the first septal vegetable buncher. While clinically remained stable in the hospital, his anato my would point towards surgical revascularization between some issues with our schedule related to on e of our OR is being unavailable and the patient's mild renal insufficiency. I would like to hydrate him overnight and recheck creatinine tomorrow and plan on his bypass surgery the day after tomorrow. I am going to go ahead and start low dose Lopressor 25 mg b.i.d. have a hemoglobin A1c checked with his morning labs and will plan on using vancomycin for surgical prophylaxis given his relatively niurka g duration of hospitalization prior to surgery.
[2018-04-24] MEDS: Atorvastatin Calcium 20 MG TAB PO SCH (20:35)
[2018-04-24] MEDS: Fenofibrate Nanocrystallized 145 MG TAB PO SCH (20:35)
[2018-04-24] MEDS: Latanoprost 0.005% Ophth Soln 2.5 ml Bottle EA EYE SCH (20:37)
[2018-04-24] MEDS: Metoprolol Tartrate 25 MG TAB PO SCH (20:37)
[2018-04-24] MEDS: Insulin Regular 300 UNITS/3 ML VIAL SC PRN (21:14)
[2018-04-25] MEDS: Sodium Chloride 0.45% 1,000 ML IV SCH (02:37)
[2018-04-25 05:07] LABS: Hemoglobin A1c 8.7 % (4.0-6.0)
[2018-04-25 05:09] LABS: Anion Gap 11 mmol/L (10-20); BUN (Urea Nitrogen) 21 mg/dL (8.4-25.7); Calc. Creatinine Clearance 154 mL/min (70-130); Calcium 9.4 mg/dL (7.8-10.44); Carbon Dioxide 22 mmol/L (23-31); Chloride 108 mmol/L (98-107); Estimated GFR-MDRD 78; Glucose 228 mg/dL (80-115); Potassium 4.1 mmol/L (3.5-5.1); Sodium 137 mmol/L (136-145)
[2018-04-25 05:19] LABS: Eosinophils 4 % (0-10); Hemoglobin 12.7 g/dL (14.0-18.0); Hypochromia SLIGHT = 6-15 cells (100X) (0-5/hpf); Lymphocytes 55 % (21-51); MDiff Complete? YES; Mean Corpuscular HGB CONC 32.4 g/dL (32.0-36.0); Mean Corpuscular Hemoglobin 26.5 pg (27.0-31.0); Mean Corpuscular Volume 81.9 fL (78.0-98.0); Mean Platelet Volume 9.7 fL (7.4-10.4); Monocytes 7 % (0-10); Neutrophil 32 % (42-75); PLT Morphology Comment Appears Adequate; Platelet Count 159 thou/uL (130-400); Polychromasia SLIGHT = 2-3 cells (100X) (0-2/hpf); RBC Distribution Width 15.1 % (11.5-14.5); Reactive Lymphocytes 2 % (0-10); Red Blood Cell (RBC) Count 4.78 mill/uL (4.70-6.10); White Blood Cell (WBC) Count 5.7 thou/uL (4.8-10.8)
[2018-04-25] MEDS: Insulin Regular 300 UNITS/3 ML VIAL SC SCH ×2 (08:28→17:26)
[2018-04-25] MEDS: Insulin Regular 300 UNITS/3 ML VIAL SC PRN ×4 (08:28→20:43)
[2018-04-25] MEDS: AcetaZOLAMIDE 250 MG TAB PO SCH ×2 (08:29→20:42)
[2018-04-25] MEDS: Allopurinol 300 MG TAB PO SCH (08:29)
[2018-04-25] MEDS: Amlodipine 10 MG TAB PO SCH (08:30)
[2018-04-25] MEDS: Aspirin 325 MG TAB PO SCH (08:31)
[2018-04-25] MEDS: Brimonidine Tartrate 0.2% Ophth Soln 5 ml Bottle EA EYE SCH ×3 (08:32→20:40)
[2018-04-25] MEDS: DorzolamidE/Timolol 2%/0.5% Ophth Soln 10 ml Bottle EA EYE SCH ×3 (08:33→20:40)
[2018-04-25] MEDS: Metoprolol Tartrate 25 MG TAB PO SCH ×2 (08:34→20:43)
[2018-04-25] MEDS: Famotidine 20 MG TAB PO SCH ×2 (08:34→20:42)
[2018-04-25] MEDS: Furosemide 40 MG TAB PO SCH (08:34)
[2018-04-25] MEDS: Gabapentin 300 MG CAP PO SCH ×2 (08:34→20:42)
--- NOTE | 2018-04-25 10:47 | PDOC.PN ---
- Subjective Encounter Start Date: 04/25/18 Encounter Start Time: 07:45 Patient seen and examined. he c/o constipation but he does not have abdominal pain, No overnight events - Objective Resuscitation Status: Resuscitation Status FULL:Full Resuscitation MAR Reviewed: Yes Vital Signs & Weight: Vital Signs (12 hours) Temp Pulse Resp BP BP Pulse Ox 04/25/18 08:35 128/60 04/25/18 08:30 73 128/60 04/25/18 07:37 98.0 F 73 18 145/67 H 95 04/25/18 03:51 97.8 F 78 17 134/67 96 Weight Weight 318 lb I&O: 04/24/18 04/25/18 04/26/18 06:59 06:59 06:59 Intake Total 2931 540 Output Total 1025 100 Balance 1906 440 Result Diagrams: 04/25/18 04:34 04/25/18 04:34 Additional Labs: Accuchecks 04/25/18 04/24/18 04/24/18 05:28 20:59 16:32 POC Glucose 209 H 238 H 261 H 04/24/18 10:38 POC Glucose 233 H EKG Reviewed by me: Yes (nsr) Phys Exam - Physical Examination Constitutional: NAD HEENT: PERRLA, moist MMs, sclera anicteric Neck: no JVD, supple Respiratory: no wheezing, no rales, no rhonchi Cardiovascular: RRR, no significant murmur, no rub Gastrointestinal: soft, non-tender, no distention, positive bowel sounds Musculoskeletal: no edema, pulses present Neurological: non-focal, normal sensation, moves all 4 limbs Psychiatric: normal affect, A&O x 3 Skin: no rash, normal turgor Dx/Plan (1) Chest pain Code(s): R07.9 - CHEST PAIN, UNSPECIFIED Status: Acute (2) Elevated troponin Code(s): R74.8 - ABNORMAL LEVELS OF OTHER SERUM ENZYMES Status: Acute (3) Abnormal stress test Status: Acute (4) 3-vessel CAD Status: Acute (5) Diabetes type 2, controlled Code(s): E11.9 - TYPE 2 DIABETES MELLITUS WITHOUT COMPLICATIONS Status: Chronic (6) Diabetic neuropathy Code(s): E11.40 - TYPE 2 DIABETES MELLITUS WITH DIABETIC NEUROPATHY, UNSP Status: Chronic (7) Dyslipidemia Code(s): E78.5 - HYPERLIPIDEMIA, UNSPECIFIED Status: Chronic (8) Glaucoma Code(s): H40.9 - UNSPECIFIED GLAUCOMA Status: Chronic (9) Gout Code(s): M10.9 - GOUT, UNSPECIFIED Status: Chronic (10) HTN (hypertension) Code(s): I10 - ESSENTIAL (PRIMARY) HYPERTENSION Status: Chronic (11) Morbid obesity with BMI of 50.0-59.9, adult Code(s): E66.01 - MORBID (SEVERE) OBESITY DUE TO EXCESS CALORIES; Z68.43 - BODY MASS INDEX (BMI) 50-59.9, ADULT Status: Chronic - Plan cont current plan of care, plan discussed w/ family * tomorrow pt is planned for CABG * medication reviewed as below * symptomatic treatment * overall stable at this point * pt does not want to address constipation at this point, will treat after cabg done if needed * discussed with . Review of Systems - Review of Systems Eyes: negative: Pain, Vision Change, Conjunctivae Inflammation, Eyelid Inflammation, Redness, Other ENT: negative: Ear Pain, Ear Discharge, Nose Pain, Nose Discharge, Nose Congestion, Mouth Pain, Mouth Swelling, Throat Pain, Throat Swelling, Other Respiratory: negative: Cough, Dry, Shortness of Breath, Hemoptysis, SOB with Excertion, Pleuritic Pain, Sputum, Wheezing Cardiovascular: negative: chest pain, palpitations, orthopnea, paroxysmal nocturnal dyspnea, edema, light headedness, other Gastrointestinal: Constipation. negative: Nausea, Vomiting, Abdominal Pain, Diarrhea, Melena, Hematochezia, Other Genitourinary: negative: Dysuria, Frequency, Incontinence, Hematuria, Retention , Other Musculoskeletal: negative: Neck Pain, Shoulder Pain, Arm Pain, Back Pain, Hand Pain, Leg Pain, Foot Pain, Other - Medications/Allergies Allergies/Adverse Reactions: Allergies Allergy/AdvReac Type Severity Reaction Status Date / Time codeine Allergy itching Verified 04/22/18 04:32 Medications: Current Medications Acetaminophen (Tylenol) 650 mg PO Q4H PRN PRN Reason: Headache/Fever/Mild Pain (1-3) Stop: 04/26/18 08:59 Last Admin: 04/24/18 20:39 Dose: 650 mg Acetazolamide (Diamox) 250 mg PO BID [facility] Stop: 04/26/18 08:59 Last Admin: 04/25/18 08:29 Dose: 250 mg Allopurinol (Zyloprim) 300 mg PO DAILY [facility] Stop: 04/26/18 08:59 Last Admin: 04/25/18 08:29 Dose: 300 mg Amlodipine Besylate (Norvasc) 10 mg PO DAILY [facility] Stop: 04/26/18 08:59 Last Admin: 04/25/18 08:30 Dose: 10 mg Artificial Tears (Tears Naturale) 0 drop EA EYE PRN PRN PRN Reason: Dry Eyes Stop: 04/26/18 08:59 Aspirin (Aspirin) 325 mg PO DAILY [facility] Stop: 04/26/18 08:59 Last Admin: 04/25/18 08:31 Dose: 325 mg Atorvastatin Calcium (Lipitor) 20 mg PO HS [facility] Stop: 04/26/18 08:59 Last Admin: 04/24/18 20:35 Dose: 20 mg Bisacodyl (Dulcolax) 10 mg [place] DAILYPRN PRN PRN Reason: Constipation Stop: 04/26/18 08:59 Brimonidine Tartrate (Alphagan 0.2% Ophth Soln) 1 drop EA EYE TID [facility] Stop: 04/26/18 08:59 Last Admin: 04/25/18 08:32 Dose: 1 drop Dextrose/Water (Dextrose 50%) 25 gm SLOW IVP PRN PRN PRN Reason: Hypoglycemia Stop: 04/26/18 08:59 Dextrose/Water (Dextrose 50%) 25 gm SLOW IVP PRN PRN PRN Reason: Hypoglycemia Dorzolamide/Timolol (Cosopt 2-0.5% Ophth Soln) 1 drop EA EYE TID [facility] Stop: 04/26/18 08:59 Last Admin: 04/25/18 08:33 Dose: 1 drop Famotidine (Pepcid) 20 mg PO BID [facility] Stop: 04/26/18 08:59 Last Admin: 04/25/18 08:34 Dose: 20 mg Fenofibrate (Tricor) 145 mg PO HS [facility] Stop: 04/26/18 08:59 Last Admin: 04/24/18 20:35 Dose: 145 mg Furosemide (Lasix) 40 mg PO DAILY [facility] Stop: 04/26/18 08:59 Last Admin: 04/25/18 08:34 Dose: 40 mg Gabapentin (Neurontin) 300 mg PO BID [facility] Stop: 04/26/18 08:59 Last Admin: 04/25/18 08:34 Dose: 300 mg Glucagon (Glucagon) 1 mg IM PRN PRN PRN Reason: Hypoglycemia Stop: 04/26/18 08:59 Glucagon (Glucagon) 1 mg IM PRN PRN PRN Reason: Hypoglycemia Guaifenesin (Robitussin Sf) 200 mg PO Q4H PRN PRN Reason: Cough Stop: 04/26/18 08:59 Hydralazine HCl (Apresoline) 10 mg SLOW IVP Q4H PRN PRN Reason: Systolic BP > 180 Stop: 04/26/18 08:59 Dextrose/Water (D5w) 1,000 mls @ 0 mls/hr IV .Q0M PRN PRN Reason: Hypoglycemia Stop: 04/26/18 08:59 Sodium Chloride (1/2 Normal Saline) 1,000 mls @ 75 mls/hr IV .[id number] [facility] Stop: 04/26/18 08:59 Last Admin: 04/25/18 02:37 Dose: 1,000 mls Vancomycin HCl 1.5 gm/ Sodium (Chloride) 300 mls @ 150 mls/hr IVPB 0730 [facility] Stop: 04/26/18 12:00 Dextrose/Water (D5w) 1,000 mls @ 0 mls/hr IV .Q0M PRN PRN Reason: Hypoglycemia Insulin Human Regular (Humulin R) 12 units SC BID-AC [facility] Stop: 04/26/18 08:59 Last Admin: 04/25/18 08:28 Dose: 12 unit Insulin Human Regular (Humulin R) 0 units SC .BEDTIME SLIDING SC PRN PRN Reason: Bedtime Correctional Scale Stop: 04/26/18 08:59 Last Admin: 04/24/18 21:14 Dose: 2 unit Insulin Human Regular (Humulin R) 0 units SC .AGGRESSIVE SLIDING PRN PRN Reason: Aggressive Sliding Scale Last Admin: 04/25/18 08:28 Dose: 6 unit Latanoprost (Xalatan 0.005% Ophth Soln) 1 drop EA EYE HS [facility] Stop: 04/26/18 08:59 Last Admin: 04/24/18 20:37 Dose: Not Given Loperamide HCl (Imodium) 2 mg PO PRN PRN PRN Reason: Diarrhea/Loose Stools Stop: 04/26/18 08:59 Loratadine (Claritin) 10 mg PO DAILYPRN PRN PRN Reason: Sinus Symptoms Stop: 04/26/18 08:59 Metoprolol Tartrate (Lopressor) 25 mg PO BID [facility] Last Admin: 04/25/18 08:34 Dose: 25 mg Mineral Oil/White Petrolatum (Eucerin Cream) 0 gm TOP BIDPRN PRN PRN Reason: Dry Skin Stop: 04/26/18 08:59 Miscellaneous Information (Communication Order-Pharmacy) 0 each FS ASDIR [facility] Stop: 04/26/18 08:59 Miscellaneous Information (Communication Order-Pharmacy) 1 each FS ONE [facility] Stop: 04/26/18 12:00 Nitroglycerin (Nitrostat) 0.4 mg SL Q5MIN PRN PRN Reason: Chest Pain Stop: 04/26/18 08:59 Ondansetron HCl (Zofran Odt) 4 mg PO Q6H PRN PRN Reason: Nausea/Vomiting Stop: 04/26/18 08:59 Ondansetron HCl (Zofran) 4 mg IVP Q6H PRN PRN Reason: Nausea/Vomiting Stop: 04/26/18 08:59 Phenol (Chloraseptic [place] 180 Ml Bot) 0 ml PO PRN PRN PRN Reason: Sore Throat Stop: 04/26/18 08:59 Quinapril HCl (Accupril) 40 mg PO DAILY [facility] Last Admin: 04/25/18 08:35 Dose: 40 mg Senna/Docusate Sodium (Senokot S) 2 tab PO BID PRN PRN Reason: Constipation Stop: 04/26/18 08:59 Sodium Chloride ([place] Nasal [place] 0.65%) 0 ml EA NARE QIDPRN PRN PRN Reason: Nasal Congestion Stop: 04/26/18 08:59 Sodium Chloride (Flush - Normal Saline) 10 ml IVF Q12HR [facility] Stop: 04/26/18 08:59 Last Admin: 04/25/18 08:35 Dose: Not Given Sodium Chloride (Flush - Normal Saline) 10 ml IVF PRN PRN PRN Reason: Saline Flush Stop: 04/26/18 08:59 Zolpidem Tartrate (Ambien) 5 mg PO HSPRN PRN PRN Reason: Insomnia Stop: 04/26/18 08:59
--- NOTE | 2018-04-25 11:44 | PQF ---
CLINICAL DOCUMENTATION IMPROVEMENT CLARIFICATION FORM: ICD-10 Updated PLEASE DO AN ADDENDUM TO THE PROGRESS NOTE WITH ANY DOCUMENTATION UPDATES OR ADDITIONS AND CARRY THROUGH TO DC SUMMARY. THANK YOU. DATE: 04/25/18 ATTN: DR. FRAGA Please exercise your independent, professional judgment in responding to the clarification form. Clinical indicators are provided on the bottom of this form for your review Please check appropriate box(s) to clarify if the following diagnosis has been ruled in or ruled out: NSTEMI [ x ] Ruled in diagnosis [ xx] Continue to treat [ ] Resolved [ ] Ruled out diagnosis [ ] Cannot rule out diagnosis [ ] Other diagnosis [ ] Unable to determine In addition, please specify: Present on Admission (POA): [ x ] Yes [ ] No [ ] Unable to determine For continuity of documentation, please document condition throughout progress notes and discharge summary. Thank You. CLINICAL INDICATORS - SIGNS / SYMPTOMS / LABS CATH REPORT: "THE PATIENT'S CAD PRESENTATION WAS ASSESSED : NON-STEMI" TROPONINS 0.156 / 0.188 / 0.165 RISKS: HYPERTENSION CKD CAD TREATMENT: TELEMETRY MONITORING CARDIOLOGY CONSULT NUCLEAR STRESS TEST CARDIAC CATHETERIZATION EDWAR (04/24-PRESENT) (This form is maintained as a part of the permanent medical record) [employer] 2014 [employer] All Rights Reserved REBEKA [email or web address] Office: [phone] [email or web address]
--- NOTE | 2018-04-25 12:49 | PDOC.CTH ---
<Vianey Marc - Last Filed: 04/25/18 12:50> Cardiology Progress Note - Subjective The pt seen and examined. No overnight events. No cardiac complaints. - Objective Vital Signs Temp Pulse Resp BP BP Pulse Ox 04/25/18 12:00 98.0 F 60 18 113/71 96 04/25/18 08:35 128/60 04/25/18 08:30 73 128/60 97 04/25/18 07:37 98.0 F 73 18 145/67 H 95 04/25/18 03:51 97.8 F 78 17 134/67 96 Weight 318 lb 04/24/18 04/25/18 04/26/18 06:59 06:59 06:59 Intake Total 2931 540 Output Total 1025 100 Balance 1906 440 - Physical Examination General/Neuro: alert & oriented x3 Neck: no JVD present Lungs: CTA Heart: RRR Abdomen: soft Extremities: other: (No edema) - Telemetry Telemetry Rhythm: SR - Labs Result Diagrams: 04/25/18 04:34 04/25/18 04:34 Troponin/CKMB CK-MB (CK-2) 2.9 ng/mL (0-6.6) 04/22/18 00:57 Troponin I 0.165 ng/mL (< 0.028) H 04/22/18 07:23 - Assessment/Plan 1. CAD - Plan for CABG tomorrow; the pt stated he does not have any questions about the procedure at this moment 2. HTN - stable 4. CKdz.Add IV fluids prior to the cath. 5. DM type 2 - 6. Hyperlipidemia - 7. Morbid obesity. 8. Peripheral neuropathy MAR reviewed Review of Systems - Review of Systems Constitutional: reports: no symptoms reported EENTM: reports: no symptoms reported Respiratory: reports: no symptoms reported Cardiac (ROS): reports: no symptoms reported ABD/GI: reports: no symptoms reported : reports: no symptoms reported Musculoskeletal: reports: no symptoms reported <Angely Melo - Last Filed: 04/25/18 18:20> Cardiology Progress Note - Objective Vital Signs Temp Pulse Resp BP BP Pulse Ox 04/25/18 15:27 97.8 F 62 18 109/64 95 04/25/18 12:00 98.0 F 60 18 113/71 96 04/25/18 08:35 128/60 10/18/18 08:30 73 128/60 97 04/25/18 07:37 98.0 F 73 18 145/67 H 95 Weight 318 lb 04/24/18 04/25/18 04/26/18 06:59 06:59 06:59 Intake Total 2931 2110 Output Total 1025 950 Balance 1906 1160 - Labs Result Diagrams: 04/25/18 04:34 04/25/18 04:34 Troponin/CKMB CK-MB (CK-2) 2.9 ng/mL (0-6.6) 04/22/18 00:57 Troponin I 0.165 ng/mL (< 0.028) H 04/22/18 07:23 - Assessment/Plan Pt. seen and eval. by me. I agree with the A/P by the DIRECTOR OF SPECIAL EDUCATION. The plan is for CABG in AM.No c/o's today. RRR. chest clear.
[2018-04-25] MEDS ORDERED: CEFAZOLIN/Water 2 GM/20 ML SYRINGE SLOW IVP SCH (15:30)
[2018-04-25] MEDS: Acetaminophen 325 MG TAB PO PRN (15:37)
[2018-04-25] MEDS: Latanoprost 0.005% Ophth Soln 2.5 ml Bottle EA EYE SCH (20:40)
[2018-04-25] MEDS: Fenofibrate Nanocrystallized 145 MG TAB PO SCH (20:41)
[2018-04-25] MEDS: Atorvastatin Calcium 20 MG TAB PO SCH (20:42)
[2018-04-26] MEDS ORDERED: Midazolam HCl 2 mg/2 ml Vial ONE (05:52)
[2018-04-26] MEDS ORDERED: Fentanyl 250 MCG/5 ML VIAL ONE (05:52)
[2018-04-26] MEDS: Metoprolol Tartrate 25 MG TAB PO SCH (06:01)
[2018-04-26] MEDS ORDERED: Albumin 5% 500 ML ONE (06:33)
[2018-04-26] MEDS ORDERED: Heparin 10,000 UNITS/1 ML VIAL 30,000 UNITS in Sodium Chloride 0.9% 1,000 ML FS SCH (07:00)
[2018-04-26] MEDS ORDERED: Dextrose 50% Abboject 50 ML SYRINGE SLOW IVP PRN ×2 (07:17→09:17)
[2018-04-26] MEDS ORDERED: Dextrose 5% in Water 1,000 ML IV PRN ×2 (07:17→09:17)
[2018-04-26] MEDS ORDERED: Insulin Regular 300 UNITS/3 ML VIAL ONE (07:26)
[2018-04-26] MEDS ORDERED: CABG-Vancomycin 1.5 GM in Sodium Chloride 0.9% 250 ML 300 ML IVPB SCH (07:30)
[2018-04-26] MEDS ORDERED: Vancomycin HCl 1 GM in Premix Bag 1 BAG IVPB ONE (08:45)
[2018-04-26] MEDS ORDERED: Promethazine HCl 25 MG/ML VIAL IM PRN (09:17)
[2018-04-26] MEDS ORDERED: Fentanyl 100 MCG/2 ML VIAL SLOW IVP PRN ×2 (09:17)
[2018-04-26] MEDS ORDERED: Norepinephrine 8 MG/0.9% NS 250 ML IVPB PRN (09:17)
[2018-04-26] MEDS ORDERED: Bisacodyl 10 MG SUPP PR PRN (09:17)
[2018-04-26] MEDS ORDERED: Hetastarch 6% 500 ML 500 ML IVPB PRN (09:17)
[2018-04-26] MEDS ORDERED: Guaifenesin DM 100-10/5 ML UDCUP PO PRN (09:17)
[2018-04-26] MEDS ORDERED: Post-Op Insulin Drip Protocol IVPB ONE (09:17)
[2018-04-26] MEDS ORDERED: Acetaminophen 325 MG TAB PO PRN (09:17)
[2018-04-26] MEDS ORDERED: hydrALAZINE 20 MG/ML VIAL SLOW IVP PRN (09:17)
[2018-04-26] MEDS ORDERED: Nitroglycerin 50 MG/250 ML BOT 250 ML IVPB PRN (09:17)
[2018-04-26] MEDS ORDERED: Mag-Al 1200 mg/1200 mg/30 ML UDCUP PO PRN (09:17)
[2018-04-26] MEDS ORDERED: Bisacodyl 5 MG TAB PO PRN (09:17)
[2018-04-26] MEDS ORDERED: Ondansetron PF 4 MG/2 ML Vial IVP PRN (09:17)
[2018-04-26] MEDS ORDERED: HYDROcodone/Acetaminophen 5/325 mg Tablet PO PRN ×2 (09:17)
[2018-04-26] MEDS ORDERED: Insulin Regular 300 UNITS/3 ML VIAL SC PRN (09:37)
[2018-04-26] MEDS ORDERED: Lidocaine 2% PF 100 mg/5 ml Syringe ONE (10:16)
[2018-04-26] MEDS ORDERED: Mannitol 12.5 GM/50 ML ONE (10:16)
[2018-04-26] MEDS ORDERED: Magnesium 5 GM/10 ML VIAL ONE (10:16)
[2018-04-26] MEDS ORDERED: Heparin 30,000 units/30 ml VIAL ONE ×2 (10:16→14:40)
[2018-04-26] MEDS ORDERED: Aminocaproic Acid 5 GM/20 ML VIAL ONE (10:16)
[2018-04-26] MEDS ORDERED: Potassium Chloride 60 MEQ/30 ML VIAL ONE (10:16)
[2018-04-26] MEDS ORDERED: Sodium Bicarb 50 MEQ/50 ML VIAL ONE ×2 (10:16→14:40)
--- NOTE | 2018-04-26 10:38 | PDOC.PN ---
- Subjective Encounter Start Date: 04/26/18 Encounter Start Time: 06:00 Patient seen and examined. No new complaints. No overnight events - Objective Resuscitation Status: Resuscitation Status FULL:Full Resuscitation MAR Reviewed: Yes Vital Signs & Weight: Vital Signs (12 hours) Temp Pulse Resp BP BP Pulse Ox 04/26/18 06:30 112/59 L 04/26/18 06:00 60 20 112/59 L 04/26/18 04:00 98.4 F 67 20 99/53 L 96 04/26/18 00:00 60 18 Weight Weight 317 lb 8 oz I&O: 04/25/18 04/26/18 04/27/18 06:59 06:59 06:59 Intake Total 2350 Output Total 1400 Balance 950 Result Diagrams: 04/25/18 04:34 04/25/18 04:34 Additional Labs: Accuchecks 04/26/18 04/25/18 04/25/18 05:42 20:21 16:32 POC Glucose 190 H 422 H 225 H 04/25/18 10:34 POC Glucose 231 H EKG Reviewed by me: Yes (nsr) Phys Exam - Physical Examination Constitutional: NAD HEENT: PERRLA, moist MMs, sclera anicteric Neck: no JVD, supple Respiratory: no wheezing, no rales, no rhonchi Cardiovascular: RRR, no significant murmur, no rub Gastrointestinal: soft, non-tender, no distention, positive bowel sounds Musculoskeletal: no edema, pulses present Neurological: non-focal, normal sensation, moves all 4 limbs Psychiatric: normal affect, A&O x 3 Skin: no rash, normal turgor Dx/Plan (1) Chest pain Code(s): R07.9 - CHEST PAIN, UNSPECIFIED Status: Acute (2) Elevated troponin Code(s): R74.8 - ABNORMAL LEVELS OF OTHER SERUM ENZYMES Status: Acute (3) Abnormal stress test Status: Acute (4) 3-vessel CAD Status: Acute (5) Diabetes type 2, controlled Code(s): E11.9 - TYPE 2 DIABETES MELLITUS WITHOUT COMPLICATIONS Status: Chronic (6) Diabetic neuropathy Code(s): E11.40 - TYPE 2 DIABETES MELLITUS WITH DIABETIC NEUROPATHY, UNSP Status: Chronic (7) Dyslipidemia Code(s): E78.5 - HYPERLIPIDEMIA, UNSPECIFIED Status: Chronic (8) Glaucoma Code(s): H40.9 - UNSPECIFIED GLAUCOMA Status: Chronic (9) Gout Code(s): M10.9 - GOUT, UNSPECIFIED Status: Chronic (10) HTN (hypertension) Code(s): I10 - ESSENTIAL (PRIMARY) HYPERTENSION Status: Chronic (11) Morbid obesity with BMI of 50.0-59.9, adult Code(s): E66.01 - MORBID (SEVERE) OBESITY DUE TO EXCESS CALORIES; Z68.43 - BODY MASS INDEX (BMI) 50-59.9, ADULT Status: Chronic - Plan cont current plan of care * today plan for CABG * post CABG continue care as per CT surgeon * medication reviewed as below * symptomatic treatment. Review of Systems - Review of Systems ENT: negative: Ear Pain, Ear Discharge, Nose Pain, Nose Discharge, Nose Congestion, Mouth Pain, Mouth Swelling, Throat Pain, Throat Swelling, Other Respiratory: negative: Cough, Dry, Shortness of Breath, Hemoptysis, SOB with Excertion, Pleuritic Pain, Sputum, Wheezing Cardiovascular: negative: chest pain, palpitations, orthopnea, paroxysmal nocturnal dyspnea, edema, light headedness, other Gastrointestinal: negative: Nausea, Vomiting, Abdominal Pain, Diarrhea, Constipation, Melena, Hematochezia, Other Genitourinary: negative: Dysuria, Frequency, Incontinence, Hematuria, Retention , Other Musculoskeletal: negative: Neck Pain, Shoulder Pain, Arm Pain, Back Pain, Hand Pain, Leg Pain, Foot Pain, Other Skin: negative: Rash, Lesions, David, Bruising, Other - Medications/Allergies Allergies/Adverse Reactions: Allergies Allergy/AdvReac Type Severity Reaction Status Date / Time codeine Allergy itching Verified 04/22/18 04:32 Medications: Current Medications Acetaminophen (Tylenol) 650 mg PO Q6H PRN PRN Reason: Headache/Fever Or Mild Pain Hydrocodone Bitart/Acetaminophen ([place] 5/325) 1 tab PO Q4H PRN PRN Reason: Moderate Pain (4-6) Hydrocodone Bitart/Acetaminophen ([place] 5/325) 2 tab PO Q4H PRN PRN Reason: Severe Pain (7-10) Al Hydroxide/Mg Hydroxide (Maalox) 30 ml PO Q4H PRN PRN Reason: Indigestion Albumin Human (Albumin 5%) 12.5 gm IVPB Q6H PRN PRN Reason: To Maintain SBP> 90 mmHG Stop: 04/27/18 09:18 Albumin Human (Albumin 5%) 25 gm IVPB Q6H PRN PRN Reason: To Maintain SBP > 90 mmHG Stop: 04/27/18 09:18 Aspirin (Aspirin) 325 mg PO DAILY TRAVIS Bisacodyl (Dulcolax) 10 mg PO Q12H PRN PRN Reason: Constipation Bisacodyl (Dulcolax) 10 mg DE Q12H PRN PRN Reason: Constipation Dextrose/Water (Dextrose 50%) 25 gm SLOW IVP PRN PRN PRN Reason: Hypoglycemia Famotidine (Pepcid) 20 mg SLOW IVP Q12HR TRAVIS Fentanyl (Sublimaze) 25 mcg SLOW IVP Q2H PRN PRN Reason: Moderate Pain (4-6) Stop: 04/28/18 07:07 Fentanyl (Sublimaze) 50 mcg SLOW IVP Q2H PRN PRN Reason: Severe Pain (7-10) Stop: 04/28/18 07:07 Glucagon (Glucagon) 1 mg IM PRN PRN PRN Reason: Hypoglycemia Guaifenesin/Dextromethorphan (Robitussin Dm) 15 ml PO Q4H PRN PRN Reason: Cough Hydralazine HCl (Apresoline) 10 mg SLOW IVP Q6H PRN PRN Reason: To Maintain SBP< 140mmHG Dextrose/Water (D5w) 1,000 mls @ 0 mls/hr IV .Q0M PRN PRN Reason: Hypoglycemia Hetastarch/Sodium Chloride (Hespan) 500 mls @ 0 mls/hr IVPB PRN PRN PRN Reason: To Maintain SBP > 90mmHg Stop: 04/27/18 07:07 Norepinephrine Bitartrate (Levophed) 250 mls @ 0 mls/hr IVPB PRN PRN; Protocol PRN Reason: To maintain SBP > 90 mmHG Nicardipine HCl 25 mg/ Sodium (Chloride) 260 mls @ 0 mls/hr IVPB INF PRN; Protocol PRN Reason: To Maintain SBP< 140mmHG Nitroglycerin/Dextrose (Nitroglycerin 50 Mg/250 Ml Bot) 250 mls @ 0 mls/hr IVPB PRN PRN; Protocol PRN Reason: To Maintain SBP< 140mmHG Insulin Human Regular 100 (units/ Sodium Chloride) 101 mls @ 0 mls/hr IVPB INF TRAVIS; Protocol Insulin Glargine (Lantus) 0 units SC ONE PRN PRN Reason: POST OPEN HEART ORDERS Stop: 04/28/18 09:38 Insulin Human Regular (Humulin R) 0 units SC Q4H PRN; Protocol PRN Reason: POST CABG SLIDING SCALE Morphine Sulfate (Morphine) 2 mg SLOW IVP Q15MIN PRN PRN Reason: Severe Pain (7-10) Ondansetron HCl (Zofran) 4 mg IVP Q6H PRN PRN Reason: Nausea/Vomiting Potassium Chloride (Kcl) 20 meq IVPB PRN PRN PRN Reason: K level </= 4.0 Promethazine HCl (Phenergan) 6.25 mg IM Q4H PRN PRN Reason: Nausea/Vomiting
[2018-04-26] MEDS ORDERED: Protamine Sulfate 250 MG/25 ML VIAL ONE (14:40)
[2018-04-26] MEDS ORDERED: Norepinephrine 4 MG/4 ML VIAL ONE (14:40)
[2018-04-26] MEDS ORDERED: Thrombin 5000 UNITS/5 ML VIAL ONE (14:40)
[2018-04-26] MEDS ORDERED: Heparin 5,000 UNITS/ML VIAL ONE (14:40)
[2018-04-26] MEDS ORDERED: Calcium Chloride 1 GM/10 ML Abboject SYRINGE ONE (14:40)
[2018-04-26] MEDS ORDERED: Cardioplegic Soln 1,000 ML BAG ONE (14:40)
[2018-04-26] MEDS ORDERED: ePHEDrine/0.9% NaCl/PF SYRINGE 50 mg/10 ml ONE (14:40)
[2018-04-26] MEDS ORDERED: Lidocaine 1% PF 5 ML VIAL ONE (14:40)
[2018-04-26] MEDS ORDERED: Succinylcholine Chloride 20 MG/ML 10 ml SYRINGE FS ONE (14:40)
[2018-04-26] MEDS ORDERED: Papaverine 60 MG/2 ML VIAL ONE (14:40)
[2018-04-26] MEDS ORDERED: Vecuronium 10 MG VIAL ONE ×2 (14:40→15:45)
[2018-04-26] MEDS ORDERED: PROPOFOL 200 MG/20 ML VIAL ONE (14:40)
[2018-04-26] MEDS ORDERED: PROPOFOL 20 ML ONE ×2 (15:05→15:54)
[2018-04-26] MEDS: Insulin Regular 300 UNITS/3 ML VIAL SC SCH (15:34)
[2018-04-26] MEDS: Aspirin 325 MG TAB PO SCH (15:35)
[2018-04-26] MEDS ORDERED: Propofol 1,000 MG/100 ML VIAL IV ONE ×2 (17:25→22:59)
[2018-04-26] MEDS ORDERED: Norepinephrine 8 MG/0.9% NS 250 ML ONE (17:35)
[2018-04-26 17:40] LABS: Actual Bicarbonate (HCO3a) 19.2 mEq/L (22-28); Base Excess (BEa) -7.8 mEq/L (-2.0 to +3.0); CO2 Tension 44.8 mmHg (35.0-45.0); Calcium, Ionized 1.07 mmol/L (1.12-1.30); Carboxyhemoglobin (COHb) 0.8 gm% (0.0-3.0); Hemoglobin (Hb) 10.9 g/dL (14.0-18.0); O2 Tension (PaO2) 106.5 mmHg (> 80.0); Potassium - ABG Lab 5.11 mmol/L (3.70-5.30)
[2018-04-26 17:41] LABS: Puncture Site A-LINE; pH, Arterial 7.25 (7.35-7.45)
--- NOTE | 2018-04-26 18:07 | PDOC.CTH ---
Cardiology Progress Note - Subjective Pt. seen and eval. just back from the OR after CABG. On ventilator. - Objective Vital Signs Temp Pulse BP 04/26/18 17:35 80 93/62 04/26/18 17:20 97.5 F L 04/26/18 06:30 112/59 L Weight 317 lb 8 oz 04/25/18 04/26/18 04/27/18 06:59 06:59 06:59 Intake Total 2350 4000 Output Total 1400 680 Balance 950 3320 - Physical Examination Lungs: CTA Heart: RRR Abdomen: NT/ND - Labs Result Diagrams: 04/25/18 04:34 04/25/18 04:34 Troponin/CKMB CK-MB (CK-2) 2.9 ng/mL (0-6.6) 04/22/18 00:57 Troponin I 0.165 ng/mL (< 0.028) H 04/22/18 07:23 - Assessment/Plan 1. CAD - s/p CABG today; the pt back from the OR, still on the ventilator. 2. HTN - stable 4. CKdz. 5. DM type 2 - 6. Hyperlipidemia - 7. Morbid obesity. 8. Peripheral neuropathy MAR reviewed. Resume prior meds when taking po.
[2018-04-26 18:10] LABS: INR-International Normal Ratio 1.5; Prothrombin Time 18.4 SEC (12.0-14.7)
[2018-04-26 18:18] LABS: Potassium 4.7 mmol/L (3.5-5.1)
[2018-04-26 18:28] LABS: Anion Gap 8 mmol/L (10-20); BUN (Urea Nitrogen) 21 mg/dL (8.4-25.7); Calc. Creatinine Clearance 127 mL/min (70-130); Calcium 6.9 mg/dL (7.8-10.44); Carbon Dioxide 21 mmol/L (23-31); Chloride 116 mmol/L (98-107); Estimated GFR-MDRD 74; Glucose 227 mg/dL (80-115); Potassium 4.7 mmol/L (3.5-5.1); Sodium 140 mmol/L (136-145)
[2018-04-26 19:06] LABS: Actual Bicarbonate (HCO3a) 17.5 mEq/L (22-28); Base Excess (BEa) -6.8 mEq/L (-2.0 to +3.0); CO2 Tension 31.1 mmHg (35.0-45.0); Calcium, Ionized 1.03 mmol/L (1.12-1.30); Carboxyhemoglobin (COHb) 0.8 gm% (0.0-3.0); O2 Tension (PaO2) 235.6 mmHg (> 80.0); Potassium - ABG Lab 5.12 mmol/L (3.70-5.30); pH, Arterial 7.37 (7.35-7.45)
[2018-04-26] MEDS ORDERED: Lorazepam 2 MG/ML VIAL SLOW IVP PRN (19:06)
[2018-04-26] MEDS ORDERED: Fentanyl BOLUS 250 ML IVPB PRN (19:06)
[2018-04-26] MEDS ORDERED: fentaNYL Citrate/PF 2,000 MCG in Sodium Chloride 0.9% 60 ML IV SCH (19:06)
[2018-04-26] MEDS ORDERED: DISCONTINUE PREVIOUS NARCOTIC PAIN MEDICATIONS AND BENZODIAZEPINES FS SCH (19:06)
[2018-04-26] MEDS ORDERED: Propofol BOLUS 1,000 MG/100 ML VIAL IV PRN (19:06)
[2018-04-26 19:09] LABS: ALV-art Gradient 153.325 (0-20); Puncture Site LINE
[2018-04-26 19:11] LABS: #Eosinphils 0.2 thou/uL (0.0-0.7); #Lymphocytes 2.2 thou/uL (1.20-3.40); #Monocytes 0.6 thou/uL (0.11-0.59); #Neutrophils 14.6 thou/uL (1.40-6.50); %Basophils 0.3 % (0.0-1.0); %Lymphocytes 12.3 % (21.0-51.0); %Monocytes 3.4 % (0.0-10.0); %Neutrophils 83.1 % (42.0-75.0); Hemoglobin 10.2 g/dL (14.0-18.0); Mean Corpuscular HGB CONC 31.5 g/dL (32.0-36.0); Mean Corpuscular Hemoglobin 26.4 pg (27.0-31.0); Mean Corpuscular Volume 83.8 fL (78.0-98.0); Platelet Count 115 thou/uL (130-400); RBC Distribution Width 15.4 % (11.5-14.5); Red Blood Cell (RBC) Count 3.87 mill/uL (4.70-6.10); White Blood Cell (WBC) Count 17.6 thou/uL (4.8-10.8)
[2018-04-26] MEDS ORDERED: Sodium Bicarb 50 MEQ/50 ML Abboject 8.4% SYRINGE ONE ×2 (19:17→19:26)
[2018-04-26] MEDS: Propofol 1,000 MG/100 ML VIAL IV PRN ×2 (19:21→23:00)
[2018-04-26 19:30] LABS: Hemoglobin 10.5 g/dL (14.0-18.0)
[2018-04-26] MEDS: Famotidine/PF 20 mg/2ml Vial SLOW IVP SCH ×2 (19:43→20:02)
[2018-04-26] MEDS ORDERED: Albuterol Sulfate 2.5 mg/3 ml Neb ONE (20:26)
--- NOTE | 2018-04-26 20:36 | RAD ---
CHEST ONE VIEW: 04/26/18 INDICATION: History of open heart surgery. COMPARISON: Prior exam dated 04/22/18. FINDINGS: There has been interval development of right upper lobe collapse. The patient is intubated. There is a left subclavian central venous catheter now in place. There are midline sternotomy changes. There a re surgical drains within the mediastinum. Left lung is clear. No pneumothorax is demonstrated. IMPRESSION: 1. Interval sternotomy. 2. Right upper lobe atelectasis. 3. ET tube, left subclavian central venous catheter, lower mediastinal drain. The ET tube tip is seen approximately 3 cm from the level of the kelli. Findings were called Dr. Radhika Bolivar RN at 6:26 p.m. on 04/26/18. Code CR POS: [id number]
[2018-04-26] MEDS ORDERED: Sodium Bicarb 50 MEQ/50 ML Abboject 8.4% SYRINGE IVP SCH (20:45)
[2018-04-26] MEDS: Sodium Chloride 0.9% 1,000 ML IV SCH (21:04)
--- NOTE | 2018-04-26 23:53 | OP ---
DATE OF PROCEDURE: 04/26/2018 PROCEDURES PERFORMED: Coronary artery bypass grafting x4 with left internal mammary artery to the LA D and reverse greater saphenous vein graft from the aorta to the diagonal, distal obtuse marginal int o the posterolateral branch of the RCA, ligation of left atrial appendage. PREOPERATIVE DIAGNOSIS: Coronary artery disease, status post non-ST elevation myocardial infarction. POSTOPERATIVE DIAGNOSIS: Coronary artery disease, status post non-ST elevation myocardial infarction . SURGEON: Dalton Monaco M.D. ANESTHESIA: General endotracheal anesthesia. INDICATIONS: The patient is a 62-year-old morbidly obese diabetic man who presented with burning melodie st pain and ruled in for myocardial infarction based on mild elevation with rise and fall of the trop onins. Stress testing demonstrated anterior septal ischemia. Cardiac catheterization demonstrated s evere 3-vessel coronary artery disease including a very high grade lesion in the LAD at about the lev el of the first septal board winder. He is now taken to the operating room for surgical revascularizat ion. FINDINGS: Pump time 138 minutes. Crossclamp time 16 minutes. Good quality PROSPER and saphenous vein. The LAD was about a 2 mm fairly soft vessel. The second diagonal is about 1.5-2 mm with heavy plaqu e proximally. The obtuse marginal was diffusely diseased and grafted distally. Bridging across the distal anastomosis just proximal to the terminal bifurcation point. At that point, it was about a 2- 2.5 mm vessel. The posterolateral branch of the right coronary was also diffusely diseased and it wa s about a 1.5-2 mm vessel fairly distally where it was grafted. The pericardium was loosely closed. NARRATIVE REPORT: After informed consent was obtained, the patient was taken to the operating room a nd placed in supine position on the operating table. After the induction of general anesthesia, the patient's left upper chest was prepped and draped in sterile fashion. A triple-lumen central line ki t was used to place a left subclavian central line by the Seldinger technique. All three ports easil y aspirated and flushed. The line was secured. The patient's right lower extremity was ultrasonogra phically examined to identify vein. Proximally it appeared very deep, but the distal thigh appeared reasonably superficial end of adequate size and quality. The left leg was not examined because of th e known history of venous stasis disease and venous stasis ulceration of the leg. The patient's tors o, groins, and lower extremities were prepped and draped in sterile fashion. An incision was made ju st above the right knee medially. A tiny branch of the vein could be identified, but after considera ble exploration, the saphenous vein proper could not be identified and an endoscopic harvest was aban doned. An oblique incision was made proximally in the thigh, the greater saphenous vein was identifi ed and it was then harvested through a skin bridge technique from the level of the saphenofemoral derek ction to about the mid-calf, it was prepared for use as a graft and the harvest sites were closed in layers of subcutaneous and subcuticular Vicryl. A median sternotomy was performed. Keeping the skin incision just superior to major intertriginous fold at about the level of the junction of the body o f the sternum and the xiphoid. The left internal mammary artery was harvested as a skeletonized in s itu graft through an extrapleural exposure. The patient was heparinized. The mammary was ligated an d divided distally. There was excellent flow through the mammary which was then instilled intralumin ally with papaverine solution. Mammary bed was inspected for hemostasis. PROSPER retractor was placed w richa Navarro. The pericardium was opened and marsupialized. The aorta was palpated and was soft. A double concentric pursestring of #2 Ethibond was placed in the ascending aorta just within the per icardial reflection. A single pursestring was placed in the right atrial appendage. Aortic and veno us cannulae were inserted and secured by the pursestrings. The plane between the aorta and the pulmo nary artery was developed. Cardiopulmonary bypass was instituted. The patient was systemically cool ed. The heart was examined. The vessels to be bypassed were identified. A longitudinal slit was ma de in the pericardium anterior to the left phrenic nerve. There was the mammary could be passed in t he hilar reflections of the pleura were mobilized and aortic crossclamp was applied and cardioplegia was administered through an aortic root needle. When arrest had been achieved, attention was turned to the left atrial appendage. Because of the patient echocardiographically had a somewhat enlarged a trium and his body habitus made him highly suspect for sleep apnea and the attendant risk of atrial f ibrillation. It was elected to ligate the left atrial appendage. A 3-0 Prolene suture was run in tw o layers of running horizontal mattress suture at the base of the appendage. Attention was then turn ed to the obtuse marginal, relatively long arteriotomy was made bridging across the distal stenosis a nd putting the heel and the toe of the anastomosis on relatively good quality vessel. Reverse greate r saphenous vein was anastomosed their end-to-side with running Prolene suture and the anastomosis te sted by flushing cold cardioplegia down the graft. The distal posterolateral branch of the RCA was t hen opened and grafted distally in a similar fashion. The diagonal was then grafted in a similar fas hion. The LAD was opened and the mammary was anastomosed with running 7-0 Prolene, and the mammary w as tacked to the epicardium. The aortic crossclamp was placed with the partial occluding clamp and a ortotomy was made in the ascending aorta with a scalpel and punch incorporating the root needle site for one of those aortotomies. The right coronary system graft was brought along the right side of th e heart and anastomosed to the most proximal aortotomy. The diagonal and OM grafts were anastomosed to the middle and distal aortotomies respectively. The partial occlusion clamp was removed and the v ein grafts were deaired. The anastomoses were inspected for hemostasis. The proximal anastomoses we re marked with small Hemoclips. A right atrial and right ventricular temporary epicardial pacing wir es were placed in a posterior pericardial drain was placed. The patient was then easily fr om cardiopulmonary bypass. The aortic and venous cannula removed and the pursestring secured. Prota mine was administered. When hemostasis was adequate, an anterior mediastinal drain was placed and th e pericardium was loosely closed over it with running Vicryl. The sternum was reapproximated with co mbination #7 stainless steel wires and ties. The xiphoid was excised. The fascia was closed over th e wires with a heavy Vicryl and the subcutaneous tissue was irrigated and reapproximated and skin was closed with Vicryl subcuticular stitch. Vancomycin paste and GPS were applied to edges of the osborn um prior to reapproximating the sternum. Additional GPS used for the subcutaneous tissue. The thigh incision appeared to be bulging with fluid. It was opted to reopen that and a large amount of thin bloody fluid was encountered, but no active bleeding sites identified. The blood seemed to track [place] n distally. It was opted to open all three of the thigh incisions to explore them. No active bleedi ng sites were identified. A 19-Pashto bulb suction drain was placed in the vein harvest tract and br ought out through a separate incision and the leg wounds were closed in layers of subcutaneous and hackett bcuticular Vicryl. The wounds were dressed and the patient was taken to the intensive care unit in s table condition.
[2018-04-27] MEDS: Albuterol Sulfate 2.5 mg/3 ml Neb NEB SCH ×2 (00:03→06:59)
[2018-04-27] MEDS: Acetylcysteine 10% 100 MG/ML 30 ml Vial NEB SCH ×2 (00:03→06:58)
[2018-04-27] MEDS: Propofol 1,000 MG/100 ML VIAL IV PRN ×2 (03:36→08:58)
[2018-04-27 05:48] LABS: #Eosinphils 0.1 thou/uL (0.0-0.7); #Lymphocytes 0.8 thou/uL (1.20-3.40); #Monocytes 0.9 thou/uL (0.11-0.59); #Neutrophils 10.3 thou/uL (1.40-6.50); %Basophils 0.1 % (0.0-1.0); %Eosinophils 0.7 % (0.0-10.0); %Lymphocytes 6.9 % (21.0-51.0); %Monocytes 7.7 % (0.0-10.0); %Neutrophils 84.6 % (42.0-75.0); Hemoglobin 8.5 g/dL (14.0-18.0); Mean Corpuscular Hemoglobin 26.9 pg (27.0-31.0); Mean Corpuscular Volume 81.4 fL (78.0-98.0); Mean Platelet Volume 9.8 fL (7.4-10.4); Platelet Count 94 thou/uL (130-400); RBC Distribution Width 15.3 % (11.5-14.5); Red Blood Cell (RBC) Count 3.16 mill/uL (4.70-6.10); White Blood Cell (WBC) Count 12.2 thou/uL (4.8-10.8)
[2018-04-27 05:58] LABS: Anion Gap 9 mmol/L (10-20); BUN (Urea Nitrogen) 22 mg/dL (8.4-25.7); Calc. Creatinine Clearance 120 mL/min (70-130); Calcium 7.7 mg/dL (7.8-10.44); Carbon Dioxide 20 mmol/L (23-31); Chloride 117 mmol/L (98-107); Estimated GFR-MDRD 69; Glucose 144 mg/dL (80-115); Potassium 3.6 mmol/L (3.5-5.1); Sodium 142 mmol/L (136-145)
[2018-04-27] MEDS: Sodium Chloride 0.9% 1,000 ML IV SCH ×2 (06:06→20:46)
[2018-04-27] MEDS: Potassium Chloride 20 MEQ/100 ML PREMIX BAG IVPB PRN (06:26)
[2018-04-27] MEDS: Famotidine/PF 20 mg/2ml Vial SLOW IVP SCH ×2 (08:50→20:33)
[2018-04-27] MEDS: Aspirin 325 MG TAB PO SCH (08:50)
[2018-04-27] MEDS ORDERED: Furosemide 40 MG/4 ML VIAL SLOW IVP SCH ×2 (10:00→21:00)
[2018-04-27] MEDS ORDERED: Dextrose 50% Abboject 50 ML SYRINGE SLOW IVP PRN (10:06)
[2018-04-27] MEDS ORDERED: Dextrose 5% in Water 1,000 ML IV PRN (10:06)
--- NOTE | 2018-04-27 10:25 | PDOC.PN ---
- Subjective Encounter Start Date: 04/27/18 Encounter Start Time: 06:45 -: old records requested/rev this morning pt was on vent, Patient seen and examined. No overnight events - Objective Resuscitation Status: Resuscitation Status FULL:Full Resuscitation MAR Reviewed: Yes Vital Signs & Weight: Vital Signs (12 hours) Temp Pulse Resp BP 04/27/18 09:43 90 127/52 L 04/27/18 07:00 100.3 F H 04/27/18 06:59 81 137/52 L 04/27/18 04:00 99.0 F 12 04/27/18 02:38 80 90/49 L 04/27/18 00:05 88 100/60 04/27/18 00:00 100.6 F H 12 Weight Weight 338 lb 3.025 oz Most Recent Monitor Data Heart Rate from ECG 84 NIBP 107/56 NIBP BP-Mean 73 Respiration from ECG 11 SpO2 100 I&O: 04/26/18 04/27/18 04/28/18 06:59 06:59 06:59 Intake Total 2350 6074.3 40 Output Total 1400 1620 140 Balance 950 4454.3 -100 Result Diagrams: 04/27/18 05:35 04/27/18 05:35 Additional Labs: Accuchecks 04/27/18 04/26/18 04/26/18 00:10 23:04 20:44 POC Glucose 178 H 208 H 186 H 04/26/18 04/26/18 19:26 12:56 POC Glucose 187 H 133 H Radiology Reviewed by me: Yes (chest xray reviewed) EKG Reviewed by me: Yes (nsr) Phys Exam - Physical Examination Constitutional: NAD on vent HEENT: PERRLA, sclera anicteric Neck: no JVD, supple Respiratory: no wheezing, no rales, no rhonchi he has left side subclavian central line chest tube in place Cardiovascular: RRR, no significant murmur, no rub Gastrointestinal: soft, no distention, positive bowel sounds Musculoskeletal: no edema, pulses present right leg surgical site with drain intubated, unable to review Deviation from normal: unable to review Skin: no rash, normal turgor Dx/Plan (1) NSTEMI (non-ST elevated myocardial infarction) Code(s): I21.4 - NON-ST ELEVATION (NSTEMI) MYOCARDIAL INFARCTION Status: Acute (2) Abnormal stress test Status: Acute (3) 3-vessel CAD Status: Acute (4) S/P CABG x 4 Status: Acute (5) Diabetes type 2, controlled Code(s): E11.9 - TYPE 2 DIABETES MELLITUS WITHOUT COMPLICATIONS Status: Chronic (6) Diabetic neuropathy Code(s): E11.40 - TYPE 2 DIABETES MELLITUS WITH DIABETIC NEUROPATHY, UNSP Status: Chronic (7) Dyslipidemia Code(s): E78.5 - HYPERLIPIDEMIA, UNSPECIFIED Status: Chronic (8) Glaucoma Code(s): H40.9 - UNSPECIFIED GLAUCOMA Status: Chronic (9) Gout Code(s): M10.9 - GOUT, UNSPECIFIED Status: Chronic (10) HTN (hypertension) Code(s): I10 - ESSENTIAL (PRIMARY) HYPERTENSION Status: Chronic (11) Morbid obesity with BMI of 50.0-59.9, adult Code(s): E66.01 - MORBID (SEVERE) OBESITY DUE TO EXCESS CALORIES; Z68.43 - BODY MASS INDEX (BMI) 50-59.9, ADULT Status: Chronic - Plan cont current plan of care * continue post CABG protocol treatment as per cardiology and CT surgery * medication reviewed as below * symptomatic treatment. Review of Systems - Review of Systems Other: unable to review due to intubated status - Medications/Allergies Allergies/Adverse Reactions: Allergies Allergy/AdvReac Type Severity Reaction Status Date / Time codeine Allergy itching Verified 04/22/18 04:32 Medications: Current Medications Acetaminophen (Tylenol) 650 mg PO Q6H PRN PRN Reason: Headache/Fever Or Mild Pain Last Admin: 04/27/18 03:35 Dose: 650 mg Al Hydroxide/Mg Hydroxide (Maalox) 30 ml PO Q4H PRN PRN Reason: Indigestion Albuterol/Ipratropium (Duoneb) 3 ml NEB [id number] [facility] Aspirin (Aspirin) 325 mg PO DAILY [facility] Last Admin: 04/27/18 08:50 Dose: 325 mg Bisacodyl (Dulcolax) 10 mg PO Q12H PRN PRN Reason: Constipation Bisacodyl (Dulcolax) 10 mg HI Q12H PRN PRN Reason: Constipation Brimonidine Tartrate ([place] 0.2% Oph Soln) 1 drop EA EYE TID TRAVIS Dextrose/Water (Dextrose 50%) 25 gm SLOW IVP PRN PRN PRN Reason: PER HYPOGLYCEMIC PROTOCOL Dorzolamide/Timolol (Cosopt 2-0.5% Oph Soln) 1 drop EA EYE TID TRAVIS Famotidine (Pepcid) 20 mg SLOW IVP Q12HR TRAVIS Last Admin: 04/27/18 08:50 Dose: 20 mg Furosemide (Lasix) 40 mg SLOW IVP Q12HR TRAVIS Stop: 04/27/18 21:01 Furosemide (Lasix) 40 mg SLOW IVP NOW TRAVIS Stop: 04/27/18 12:00 Glucagon (Glucagon) 1 mg SC PRN PRN PRN Reason: PER HYPOGLYCEMIC PROTOCOL Guaifenesin/Dextromethorphan (Robitussin Dm) 15 ml PO Q4H PRN PRN Reason: Cough Hydralazine HCl (Apresoline) 10 mg SLOW IVP Q6H PRN PRN Reason: To Maintain SBP< 140mmHG Norepinephrine Bitartrate (Levophed) 250 mls @ 0 mls/hr IVPB PRN PRN; Protocol PRN Reason: To maintain SBP > 90 mmHG Last Admin: 04/26/18 19:00 Dose: 250 mls Nicardipine HCl 25 mg/ Sodium (Chloride) 260 mls @ 0 mls/hr IVPB INF PRN; Protocol PRN Reason: To Maintain SBP< 140mmHG Nitroglycerin/Dextrose (Nitroglycerin 50 Mg/250 Ml Bot) 250 mls @ 0 mls/hr IVPB PRN PRN; Protocol PRN Reason: To Maintain SBP< 140mmHG Insulin Human Regular 100 (units/ Sodium Chloride) 101 mls @ 0 mls/hr IVPB INF TRAVIS; Protocol Last Admin: 04/27/18 08:45 Dose: 101 mls Fentanyl Citrate 2,000 mcg/ (Sodium Chloride) 100 mls @ 0 mls/hr IV INF TRAVIS; Protocol Stop: 05/26/18 19:06 Fentanyl Citrate (Fentanyl Bolus) 250 mls @ 0 mls/hr IVPB PRN PRN PRN Reason: Breakthrough pain/agitation Stop: 05/26/18 19:06 Sodium Chloride (Normal Saline 0.9%) 1,000 mls @ 75 mls/hr IV .[id number] [facility] Last Admin: 04/27/18 06:06 Dose: 1,000 mls Dextrose/Water (D5w) 1,000 mls @ 0 mls/hr IV INF PRN PRN Reason: PRN HYPOGLYCEMIC PROTOCOL Insulin Human Regular (Humulin R) 0 units SC Q4H PRN; Protocol PRN Reason: POST OP SLIDING SCALE Lorazepam (Ativan) 2 mg SLOW IVP Q1H PRN PRN Reason: Breakthrough agitation Stop: 05/26/18 19:06 Morphine Sulfate (Morphine) 2 mg SLOW IVP Q15MIN PRN PRN Reason: Severe Pain (7-10) Last Admin: 04/26/18 20:02 Dose: 2 mg Morphine Sulfate (Morphine Sulfate) 2 mg SLOW IVP Q1H PRN PRN Reason: BREAKTHROUGH PAIN/AGITATION Stop: 05/26/18 19:06 Discontinue Previous Narcotic Pain Medications And Benzodiazepines 1 each FS .ONE TRAVIS Stop: 05/26/18 19:06 Ondansetron HCl (Zofran) 4 mg IVP Q6H PRN PRN Reason: Nausea/Vomiting Potassium Chloride (Kcl) 20 meq IVPB PRN PRN PRN Reason: K level </= 4.0 Last Admin: 04/27/18 06:26 Dose: 20 meq Promethazine HCl (Phenergan) 6.25 mg IM Q4H PRN PRN Reason: Nausea/Vomiting Propofol (Diprivan) 1,000 mg IV INF PRN; Protocol PRN Reason: TO ACHIEVE GOAL RASS Stop: 05/26/18 19:06 Last Admin: 04/27/18 08:58 Dose: 1,000 mg Propofol (Diprivan Bolus) 20 mg IV Q5MIN PRN PRN Reason: BREAKTHROUGH AGITATION Stop: 05/26/18 19:06
[2018-04-27] MEDS: Brimonidine Tartrate 0.2% Ophth Soln 5 ml Bottle EA EYE SCH ×2 (10:49→20:33)
[2018-04-27] MEDS: DorzolamidE/Timolol 2%/0.5% Ophth Soln 10 ml Bottle EA EYE SCH ×2 (10:49→19:57)
--- NOTE | 2018-04-27 11:07 | RAD ---
CHEST 1 VIEW: COMPARISON: 04/26/2018. HISTORY: Status post open heart surgery. FINDINGS: Redemonstration of a left-sided central venous catheter, endotracheal tube, and nasogastric tube. St ernotomy wires are noted. Normal cardiac silhouette. There is opacification of the left hemithorax which obscures the left heart border. Pleural and parenchymal changes are suspected. No pneumothora x or osseous abnormalities. There appears to be a mediastinal drainage catheter. Improved aeration of the right upper lobe. IMPRESSION: 1. Findings compatible with recent open heart surgery. 2. Improved aeration right upper lobe. POS: [facility]
[2018-04-27 11:40] LABS: Actual Bicarbonate (HCO3a) 19.3 mEq/L (22-28); Base Excess (BEa) -4.7 mEq/L (-2.0 to +3.0); Calcium, Ionized 1.03 mmol/L (1.12-1.30); Carboxyhemoglobin (COHb) 1.1 gm% (0.0-3.0); Hemoglobin (Hb) 8.4 g/dL (14.0-18.0); Potassium - ABG Lab 3.76 mmol/L (3.70-5.30); pH, Arterial 7.41 (7.35-7.45)
--- NOTE | 2018-04-27 12:16 | EKG ---
Test Reason : Blood Pressure : / mmHG Vent. Rate : 083 BPM Atrial Rate : 083 BPM P-R Int : 148 ms QRS Dur : 076 ms QT Int : 388 ms P-R-T Axes : 068 016 021 degrees QTc Int : 455 ms Normal sinus rhythm Low voltage QRS Borderline ECG Confirmed by QUENTIN DRAPER MD ([id number]), restaurant expeditor SEDRICK MARIA ([id number]) on 04/27/2018 12:15:55 PM Referred By: BONNY Confirmed By:QUENTIN DRAPER MD
[2018-04-27] MEDS ORDERED: Fentanyl 100 MCG/2 ML VIAL SLOW IVP PRN ×2 (12:25)
[2018-04-27 13:12] LABS: Puncture Site ALINE
[2018-04-27] MEDS: HYDROcodone/Acetaminophen 5/325 mg Tablet PO PRN ×3 (14:17→23:54)
--- NOTE | 2018-04-27 14:43 | CON ---
DATE OF CONSULTATION: 04/27/2018 HISTORY OF PRESENT ILLNESS: This is a 62-year-old morbidly obese -[place] gentleman status p ost bypass, seeing him postop in the ICU. He is presently intubated. He underwent bypass surgery following cardiac catheterization which revea led severe coronary artery disease. He sees a local physician. His is at the bedside and gives adequate history. SOCIAL HISTORY: Former smoker, quit 20 years ago. History of pneumonia, no history of TB or asthma. He works in a [employer] company and is very active. Denies any symptoms of being excessively sleepy or tired. He does snore though. PAST MEDICAL HISTORY: Diabetes, hypertension, renal failure, obesity, neuropathy. PAST SURGICAL HISTORY: Gallbladder, tonsils. MEDICATIONS: From home includes eye drops, metformin 500 twice a day, quinapril 40 once a day, Lasix 40 once a day, allopurinol 300 a day, Norvasc 10 a day, Diamox 250 twice a day, gabapentin 300 twice a day, Pravachol 80 a day. ALLERGIES: CODEINE. SOCIAL/FAMILY HISTORY: Unremarkable. Alcohol, none. Tobacco . REVIEW OF SYSTEMS: Unobtainable. Sedated on the vent, on Diprivan. PHYSICAL EXAMINATION: VITAL SIGNS: Pulse 85, blood pressure is 140/80, respirations 20, sats 100%. GENERAL APPEARANCE: Morbidly obese gentleman. CHEST: Decreased breath sounds, no wheezing. CARDIAC: Normal S1, S2, no gallops. ABDOMEN: Soft, no masses. LABORATORY DATA AND IMAGING DATA: White count 12,000, hemoglobin and hematocrit is 8 and 25, platele t count is 98. His electrolytes are normal. Creatinine is 1.27, mild azotemia. Chest x-ray postop showed right upper lung atelectasis. Today the x-ray is much improved. IMPRESSION: 1. Status post coronary artery bypass grafting. 2. Morbid obesity. 3. Right upper atelectasis, probably mucus plugging, resolved. 4. Former smoker. 5. Diabetes. 6. Hypertension. PLAN: Neb treatment and supportive care. Wean per protocol. We will follow. Forty-five minutes critical care time.
[2018-04-27] MEDS: Insulin Regular 300 UNITS/3 ML VIAL SC PRN ×2 (15:32→21:28)
[2018-04-28] MEDS: HYDROcodone/Acetaminophen 5/325 mg Tablet PO PRN ×4 (04:58→20:50)
[2018-04-28 04:59] LABS: #Eosinphils 0.5 thou/uL (0.0-0.7); #Lymphocytes 1.1 thou/uL (1.20-3.40); #Neutrophils 8.8 thou/uL (1.40-6.50); %Basophils 0.1 % (0.0-1.0); %Eosinophils 4.4 % (0.0-10.0); %Lymphocytes 9.5 % (21.0-51.0); %Monocytes 8.8 % (0.0-10.0); %Neutrophils 77.2 % (42.0-75.0); Hemoglobin 7.3 g/dL (14.0-18.0); Mean Corpuscular HGB CONC 32.1 g/dL (32.0-36.0); Mean Corpuscular Hemoglobin 26.9 pg (27.0-31.0); Mean Corpuscular Volume 83.9 fL (78.0-98.0); Mean Platelet Volume 10.1 fL (7.4-10.4); Platelet Count 79 thou/uL (130-400); RBC Distribution Width 15.5 % (11.5-14.5); White Blood Cell (WBC) Count 11.4 thou/uL (4.8-10.8)
[2018-04-28 05:08] LABS: Anion Gap 7 mmol/L (10-20); BUN (Urea Nitrogen) 20 mg/dL (8.4-25.7); Calc. Creatinine Clearance 142 mL/min (70-130); Calcium 7.9 mg/dL (7.8-10.44); Carbon Dioxide 25 mmol/L (23-31); Chloride 115 mmol/L (98-107); Estimated GFR-MDRD 78; Glucose 257 mg/dL (80-115); Potassium 3.9 mmol/L (3.5-5.1); Sodium 143 mmol/L (136-145)
[2018-04-28] MEDS: Potassium Chloride 20 MEQ/100 ML PREMIX BAG IVPB PRN (06:11)
[2018-04-28] MEDS: Insulin Regular 300 UNITS/3 ML VIAL SC PRN ×4 (06:18→20:23)
[2018-04-28] MEDS ORDERED: Furosemide 40 MG/4 ML VIAL SLOW IVP SCH (07:00)
[2018-04-28] MEDS ORDERED: Metolazone 5 MG TAB PO SCH (07:00)
--- NOTE | 2018-04-28 07:34 | EKG ---
Test Reason : Blood Pressure : / mmHG Vent. Rate : 140 BPM Atrial Rate : 173 BPM P-R Int : 000 ms QRS Dur : 042 ms QT Int : 166 ms P-R-T Axes : 000 033 -16 degrees QTc Int : 253 ms Poor data quality, interpretation may be adversely affected Electronic ventricular pacemaker AV sequential or dual chamber electronic pacemaker When compared with ECG of 22-APR-2018 04:54, Electronic ventricular pacemaker has replaced Sinus rhythm Vent. rate has increased BY 72 BPM Confirmed by DIOR WALL ([id number]) on 04/28/2018 7:34:05 AM Referred By: ANASTASIYA Confirmed By:DIOR WALL
[2018-04-28] MEDS: Famotidine/PF 20 mg/2ml Vial SLOW IVP SCH ×2 (09:19→20:20)
[2018-04-28] MEDS: DorzolamidE/Timolol 2%/0.5% Ophth Soln 10 ml Bottle EA EYE SCH ×3 (09:19→20:30)
[2018-04-28] MEDS: Brimonidine Tartrate 0.2% Ophth Soln 5 ml Bottle EA EYE SCH ×3 (09:19→20:15)
[2018-04-28] MEDS: Aspirin 325 MG TAB PO SCH (09:20)
--- NOTE | 2018-04-28 10:29 | PDOC.PN ---
- Subjective Encounter Start Date: 04/28/18 Encounter Start Time: 09:20 Patient seen and examined. No new complaints. No overnight events pt has surgical site pain - Objective Resuscitation Status: Resuscitation Status FULL:Full Resuscitation MAR Reviewed: Yes Vital Signs & Weight: Vital Signs (12 hours) Temp Pulse Resp Pulse Ox 04/28/18 09:11 98.2 F 20 04/28/18 08:54 99.1 F 20 04/28/18 08:30 99.1 F 22 H 97 04/28/18 08:00 99.1 F 04/28/18 07:55 97 04/28/18 06:45 105 H 16 04/28/18 03:52 98.6 F 04/28/18 00:00 98.1 F Weight Weight 339 lb 4.662 oz Most Recent Monitor Data Heart Rate from ECG 107 NIBP 99/65 NIBP BP-Mean 76 Respiration from ECG 18 SpO2 96 I&O: 04/27/18 04/28/18 04/29/18 06:59 06:59 06:59 Intake Total 6074.3 2242 380 Output Total 1620 2395 540 Balance 4454.3 -153 -160 Result Diagrams: 04/28/18 04:44 04/28/18 04:44 Additional Labs: Accuchecks 04/28/18 04/27/18 04/27/18 06:16 21:26 15:26 POC Glucose 264 H 245 H 156 H 04/27/18 04/27/18 04/27/18 14:13 13:18 12:24 POC Glucose 134 H 108 113 H 04/27/18 04/27/18 04/27/18 10:59 09:59 08:50 POC Glucose 128 H 127 H 118 H 04/27/18 04/27/18 04/27/18 07:38 06:04 03:46 POC Glucose 132 H 144 H 147 H 04/27/18 02:12 POC Glucose 152 H Radiology Reviewed by me: Yes (chest xray reviewed) EKG Reviewed by me: Yes (nsr) Phys Exam - Physical Examination Constitutional: NAD seated in chair HEENT: PERRLA, moist MMs, sclera anicteric Neck: no JVD, supple Respiratory: no wheezing, no rales, no rhonchi reduced air entry chest tube in place Cardiovascular: RRR, no significant murmur, no rub Gastrointestinal: soft, non-tender, no distention, positive bowel sounds Musculoskeletal: no edema, pulses present right leg drain+ Neurological: non-focal, normal sensation Psychiatric: normal affect, A&O x 3 Skin: no rash, normal turgor Dx/Plan (1) NSTEMI (non-ST elevated myocardial infarction) Code(s): I21.4 - NON-ST ELEVATION (NSTEMI) MYOCARDIAL INFARCTION Status: Acute (2) Abnormal stress test Status: Acute (3) 3-vessel CAD Status: Acute (4) S/P CABG x 4 Status: Acute (5) Diabetes type 2, controlled Code(s): E11.9 - TYPE 2 DIABETES MELLITUS WITHOUT COMPLICATIONS Status: Chronic (6) Diabetic neuropathy Code(s): E11.40 - TYPE 2 DIABETES MELLITUS WITH DIABETIC NEUROPATHY, UNSP Status: Chronic (7) Dyslipidemia Code(s): E78.5 - HYPERLIPIDEMIA, UNSPECIFIED Status: Chronic (8) Glaucoma Code(s): H40.9 - UNSPECIFIED GLAUCOMA Status: Chronic (9) Gout Code(s): M10.9 - GOUT, UNSPECIFIED Status: Chronic (10) HTN (hypertension) Code(s): I10 - ESSENTIAL (PRIMARY) HYPERTENSION Status: Chronic (11) Morbid obesity with BMI of 50.0-59.9, adult Code(s): E66.01 - MORBID (SEVERE) OBESITY DUE TO EXCESS CALORIES; Z68.43 - BODY MASS INDEX (BMI) 50-59.9, ADULT Status: Chronic (12) Anemia due to acute blood loss Code(s): D62 - ACUTE POSTHEMORRHAGIC ANEMIA Status: Acute - Plan cont current plan of care, plan discussed w/ family * continue post operative care * medication reviewed as below * symptomatic treatment * add metformin his home meds * discussed with . * today 2 unit prbc ordered * continue diuresis Review of Systems - Review of Systems Eyes: negative: Pain, Vision Change, Conjunctivae Inflammation, Eyelid Inflammation, Redness, Other ENT: negative: Ear Pain, Ear Discharge, Nose Pain, Nose Discharge, Nose Congestion, Mouth Pain, Mouth Swelling, Throat Pain, Throat Swelling, Other Respiratory: negative: Cough, Dry, Shortness of Breath, Hemoptysis, SOB with Excertion, Pleuritic Pain, Sputum, Wheezing Cardiovascular: chest pain. negative: palpitations, orthopnea, paroxysmal nocturnal dyspnea, edema, light headedness, other Gastrointestinal: negative: Nausea, Vomiting, Abdominal Pain, Diarrhea, Constipation, Melena, Hematochezia, Other Genitourinary: negative: Dysuria, Frequency, Incontinence, Hematuria, Retention , Other Musculoskeletal: negative: Neck Pain, Shoulder Pain, Arm Pain, Back Pain, Hand Pain, Leg Pain, Foot Pain, Other Skin: negative: Rash, Lesions, David, Bruising, Other - Medications/Allergies Allergies/Adverse Reactions: Allergies Allergy/AdvReac Type Severity Reaction Status Date / Time codeine Allergy itching Verified 04/22/18 04:32 Medications: Current Medications Acetaminophen (Tylenol) 650 mg PO Q6H PRN PRN Reason: Headache/Fever Or Mild Pain Last Admin: 04/27/18 03:35 Dose: 650 mg Hydrocodone Bitart/Acetaminophen ([place] 5/325) 1 tab PO Q4H PRN PRN Reason: Moderate Pain (4-6) Last Admin: 04/28/18 08:34 Dose: 1 tab Hydrocodone Bitart/Acetaminophen ([place] 5/325) 2 tab PO Q4H PRN PRN Reason: Severe Pain (7-10) Al Hydroxide/Mg Hydroxide (Maalox) 30 ml PO Q4H PRN PRN Reason: Indigestion Albuterol/Ipratropium (Duoneb) 3 ml NEB [id number] Last Admin: 04/28/18 06:45 Dose: 3 ml Aspirin (Aspirin) 325 mg PO DAILY [facility] Last Admin: 04/28/18 09:20 Dose: 325 mg Bisacodyl (Dulcolax) 10 mg PO Q12H PRN PRN Reason: Constipation Bisacodyl (Dulcolax) 10 mg [place] Q12H PRN PRN Reason: Constipation Brimonidine Tartrate (Alphagan 0.2% Ophth Soln) 1 drop EA EYE TID [facility] Last Admin: 04/28/18 09:19 Dose: 1 drop Dextrose/Water (Dextrose 50%) 25 gm SLOW IVP PRN PRN PRN Reason: PER HYPOGLYCEMIC PROTOCOL Dorzolamide/Timolol (Cosopt 2-0.5% Ophth Soln) 1 drop EA EYE TID [facility] Last Admin: 04/28/18 09:19 Dose: 1 drp Famotidine (Pepcid) 20 mg SLOW IVP Q12HR [facility] Last Admin: 04/28/18 09:19 Dose: 20 mg Fentanyl (Sublimaze) 25 mcg SLOW IVP Q2H PRN PRN Reason: PAIN MODERATE Fentanyl (Sublimaze) 50 mcg SLOW IVP Q2H PRN PRN Reason: PAIN SEVERE Last Admin: 04/27/18 12:31 Dose: 50 mcg Furosemide (Lasix) 40 mg SLOW IVP 1400 [facility] Stop: 04/28/18 16:00 Glucagon (Glucagon) 1 mg SC PRN PRN PRN Reason: PER HYPOGLYCEMIC PROTOCOL Guaifenesin/Dextromethorphan (Robitussin Dm) 15 ml PO Q4H PRN PRN Reason: Cough Hydralazine HCl (Apresoline) 10 mg SLOW IVP Q6H PRN PRN Reason: To Maintain SBP< 140mmHG Sodium Chloride (Normal Saline 0.9%) 1,000 mls @ 75 mls/hr IV .[id number] [facility] Last Admin: 04/27/18 20:46 Dose: 1,000 mls Dextrose/Water (D5w) 1,000 mls @ 0 mls/hr IV INF PRN PRN Reason: PRN HYPOGLYCEMIC PROTOCOL Acetaminophen 1,000 mg/ Device 100 mls @ 400 mls/hr IVPB Q6H PRN PRN Reason: Fever/Mild Pain Stop: 04/29/18 10:03 Insulin Human Regular (Humulin R) 0 units SC Q4H PRN; Protocol PRN Reason: POST OP SLIDING SCALE Last Admin: 04/28/18 06:18 Dose: 8 unit Metformin HCl (Glucophage) 500 mg PO BID [facility] Morphine Sulfate (Morphine) 2 mg SLOW IVP Q15MIN PRN PRN Reason: Severe Pain (7-10) Last Admin: 04/26/18 20:02 Dose: 2 mg Discontinue Previous Narcotic Pain Medications And Benzodiazepines 1 each FS .ONE [facility] Stop: 05/26/18 19:06 Ondansetron HCl (Zofran) 4 mg IVP Q6H PRN PRN Reason: Nausea/Vomiting Last Admin: 04/27/18 14:18 Dose: 4 mg Potassium Chloride (Kcl) 20 meq IVPB PRN PRN PRN Reason: K level </= 4.0 Last Admin: 04/28/18 06:11 Dose: 20 meq Promethazine HCl (Phenergan) 6.25 mg IM Q4H PRN PRN Reason: Nausea/Vomiting
--- NOTE | 2018-04-28 10:50 | RAD ---
CHEST 1 VIEW: HISTORY: Status post open heart surgery. COMPARISON: 04/27/2018. FINDINGS: Interval removal of endotracheal and nasogastric tubes as well as mediastinal drainage catheters. St ernotomy wires are noted. Stable left-sided central venous catheter. Lung volumes are diminished li radha due to poor inspiratory effort. Pleural and parenchymal changes of the left lung base. No pneu mothorax. IMPRESSION: Findings compatible with recent open heart surgery. POS: [facility]
[2018-04-28] MEDS: Acetaminophen 1,000 MG in Premix Bag 1 BAG IVPB PRN ×2 (10:59→18:05)
[2018-04-28] MEDS ORDERED: metFORMIN 500 MG TAB PO SCH ×2 (11:45→15:45)
[2018-04-28] MEDS: Sodium Chloride 0.9% 1,000 ML IV SCH (11:47)
--- NOTE | 2018-04-28 12:30 | PRG ---
DATE OF SERVICE: 04/28/2018 SUBJECTIVE: This morning, he is having a lot of chest pain post-CABG. PHYSICAL EXAMINATION: VITAL SIGNS: Blood pressure 131/57, sats 98% on room air, respiration rate 18. CHEST: Decreased breath sounds, no wheezing. CARDIAC: Normal S1, S2. No gallops. ABDOMEN: Soft, no masses. LABORATORY DATA: White count is 11,000, hemoglobin and hematocrit is 7 and 22, platelet count . IMPRESSION: Status post coronary artery bypass grafting pain. PLAN: Nonsteroidal anti-inflammatory for pain. Otherwise, continue supportive care and PT. His ate lectasis resolved. Neb treatments.
[2018-04-28] MEDS ORDERED: Furosemide 100 MG/10 ML VIAL SLOW IVP SCH (14:00)
[2018-04-28] MEDS: metFORMIN 500 MG TAB PO SCH (20:22)
[2018-04-29] MEDS: HYDROcodone/Acetaminophen 5/325 mg Tablet PO PRN ×5 (00:38→21:02)
[2018-04-29] MEDS: Sodium Chloride 0.9% 1,000 ML IV SCH (00:39)
[2018-04-29] MEDS: Insulin Regular 300 UNITS/3 ML VIAL SC PRN ×4 (04:47→21:02)
[2018-04-29 05:32] LABS: #Eosinphils 0.6 thou/uL (0.0-0.7); #Lymphocytes 1.4 thou/uL (1.20-3.40); #Monocytes 0.9 thou/uL (0.11-0.59); #Neutrophils 7.1 thou/uL (1.40-6.50); %Basophils 0.2 % (0.0-1.0); %Eosinophils 6.4 % (0.0-10.0); %Lymphocytes 13.7 % (21.0-51.0); %Monocytes 8.5 % (0.0-10.0); %Neutrophils 71.2 % (42.0-75.0); Hemoglobin 7.9 g/dL (14.0-18.0); Mean Corpuscular HGB CONC 32.4 g/dL (32.0-36.0); Mean Corpuscular Hemoglobin 27.4 pg (27.0-31.0); Mean Corpuscular Volume 84.5 fL (78.0-98.0); Mean Platelet Volume 10.5 fL (7.4-10.4); Platelet Count 80 thou/uL (130-400); RBC Distribution Width 14.5 % (11.5-14.5); Red Blood Cell (RBC) Count 2.87 mill/uL (4.70-6.10)
[2018-04-29 05:34] LABS: Anion Gap 8 mmol/L (10-20); BUN (Urea Nitrogen) 20 mg/dL (8.4-25.7); Calc. Creatinine Clearance 150 mL/min (70-130); Calcium 8.1 mg/dL (7.8-10.44); Carbon Dioxide 28 mmol/L (23-31); Chloride 110 mmol/L (98-107); Estimated GFR-MDRD 83; Glucose 228 mg/dL (80-115); Potassium 3.6 mmol/L (3.5-5.1); Sodium 142 mmol/L (136-145)
--- NOTE | 2018-04-29 07:40 | PRG ---
DATE OF SERVICE: 04/29/2018 This morning he is awake, alert, responsive, less short of breath. PHYSICAL EXAMINATION: VITAL SIGNS: Sats are 96, pulse 99, blood pressure 97/59, respiration rate 18. CHEST: Chest revealed no wheezing. CARDIAC: Normal S1, S2. ABDOMEN: Soft, no masses. IMPRESSION: 1. Morbid obesity, status post coronary artery bypass graft. 2. Probably sleep apnea. 3. Atelectasis, improved. 4. Thrombocytopenia. PLAN: Continue neb treatments, supportive care and PT. He can be transferred out of the ICU as per Surgery.
[2018-04-29] MEDS: Aspirin 325 MG TAB PO SCH (08:27)
[2018-04-29] MEDS: metFORMIN 500 MG TAB PO SCH ×2 (08:29→21:02)
[2018-04-29] MEDS: Famotidine/PF 20 mg/2ml Vial SLOW IVP SCH (08:29)
--- NOTE | 2018-04-29 08:33 | STRESS ---
Acquisition Time: 2018-04-22 11:42:05 Total Exercise Time: 00:01:00 Test Indications: CHEST PAIN Medications: Protocol: LEXISCAN Max HR: 090 BPM 57% of Pred: 156 BPM Max BP: 130/070 mmHG Max Work Load: 1.0 METS RESTING ECG: NORMAL SINUS RHYTHM AT 71 BPM WITH NON-SPECIFIC T-WAVE CHANGES SYMPTOMS: NONE NORMAL BP RESPONSE ECTOPY: RARE PVC'S ECG STRESS: NO SIGNIFICANT CHANGES INTERPRETATION: INDETERMINATE ECG/AWAIT NUCLEAR IMAGES FOR DEFINITIVE DIAGNOSIS Confirmed by ALFREDO ANN ([id number]) on 04/29/2018 8:32:24 AM Referred By: KENROY ANN Confirmed By:ALFREDO ANN
--- NOTE | 2018-04-29 09:36 | RAD ---
CHEST 1 VIEW: Date: 04/29/18 HISTORY: Post open heart surgery. COMPARISON: Radiograph prior day. FINDINGS: Heart size is enlarged. Small effusions. Multiple midline sternotomy wires. Mild thickening of right minor fissure. Mild pulmonary venous congestion. Central venous catheter tip superior SVC. IMPRESSION: No significant change. POS: [facility]
--- NOTE | 2018-04-29 09:44 | PDOC.PN ---
- Subjective Encounter Start Date: 04/29/18 Encounter Start Time: 09:40 Patient seen and examined. No new complaints. No overnight events - Objective Resuscitation Status: Resuscitation Status FULL:Full Resuscitation MAR Reviewed: Yes Vital Signs & Weight: Vital Signs (12 hours) Temp Pulse Resp Pulse Ox 04/29/18 08:03 96 04/29/18 08:01 103 H 19 96 04/29/18 07:00 98.1 F 04/29/18 04:00 98.7 F 04/29/18 00:00 99.1 F Weight Weight 332 lb 14.368 oz Most Recent Monitor Data Heart Rate from ECG 92 NIBP 101/61 NIBP BP-Mean 74 Respiration from ECG 19 SpO2 96 I&O: 04/28/18 04/29/18 04/30/18 06:59 06:59 06:59 Intake Total 2242 3420 Output Total 2395 2655 100 Balance -153 765 -100 Result Diagrams: 04/29/18 05:08 04/29/18 05:08 Additional Labs: Accuchecks 04/29/18 04/28/18 04/28/18 04:23 20:12 16:38 POC Glucose 228 H 281 H 255 H 04/28/18 11:07 POC Glucose 301 H Radiology Reviewed by me: Yes (chest xray reviewed ) EKG Reviewed by me: Yes (nsr) Phys Exam - Physical Examination Constitutional: NAD HEENT: PERRLA, moist MMs, sclera anicteric Neck: no JVD, supple Respiratory: no wheezing, no rales, no rhonchi surgical site with dressing Cardiovascular: RRR, no significant murmur, no rub Gastrointestinal: soft, non-tender, no distention, positive bowel sounds Musculoskeletal: no edema, pulses present Neurological: non-focal, normal sensation Psychiatric: normal affect, A&O x 3 Skin: no rash, normal turgor Dx/Plan (1) NSTEMI (non-ST elevated myocardial infarction) Code(s): I21.4 - NON-ST ELEVATION (NSTEMI) MYOCARDIAL INFARCTION Status: Acute (2) Abnormal stress test Status: Acute (3) 3-vessel CAD Status: Acute (4) S/P CABG x 4 Status: Acute (5) Diabetes type 2, controlled Code(s): E11.9 - TYPE 2 DIABETES MELLITUS WITHOUT COMPLICATIONS Status: Chronic (6) Diabetic neuropathy Code(s): E11.40 - TYPE 2 DIABETES MELLITUS WITH DIABETIC NEUROPATHY, UNSP Status: Chronic (7) Dyslipidemia Code(s): E78.5 - HYPERLIPIDEMIA, UNSPECIFIED Status: Chronic (8) Glaucoma Code(s): H40.9 - UNSPECIFIED GLAUCOMA Status: Chronic (9) Gout Code(s): M10.9 - GOUT, UNSPECIFIED Status: Chronic (10) HTN (hypertension) Code(s): I10 - ESSENTIAL (PRIMARY) HYPERTENSION Status: Chronic (11) Morbid obesity with BMI of 50.0-59.9, adult Code(s): E66.01 - MORBID (SEVERE) OBESITY DUE TO EXCESS CALORIES; Z68.43 - BODY MASS INDEX (BMI) 50-59.9, ADULT Status: Chronic (12) Anemia due to acute blood loss Code(s): D62 - ACUTE POSTHEMORRHAGIC ANEMIA Status: Acute - Plan cont current plan of care * medication reviewed as below * symptomatic treatment * continue post cabg care as per cardiovascular surgeon * transfer to [facility] when sugeon OK * continue cardiac rehab. Review of Systems - Review of Systems ENT: negative: Ear Pain, Ear Discharge, Nose Pain, Nose Discharge, Nose Congestion, Mouth Pain, Mouth Swelling, Throat Pain, Throat Swelling, Other Respiratory: negative: Cough, Dry, Shortness of Breath, Hemoptysis, SOB with Excertion, Pleuritic Pain, Sputum, Wheezing Cardiovascular: negative: chest pain, palpitations, orthopnea, paroxysmal nocturnal dyspnea, edema, light headedness, other Gastrointestinal: negative: Nausea, Vomiting, Abdominal Pain, Diarrhea, Constipation, Melena, Hematochezia, Other Genitourinary: negative: Dysuria, Frequency, Incontinence, Hematuria, Retention , Other Musculoskeletal: negative: Neck Pain, Shoulder Pain, Arm Pain, Back Pain, Hand Pain, Leg Pain, Foot Pain, Other Skin: negative: Rash, Lesions, David, Bruising, Other - Medications/Allergies Allergies/Adverse Reactions: Allergies Allergy/AdvReac Type Severity Reaction Status Date / Time codeine Allergy itching Verified 04/22/18 04:32 Medications: Current Medications Acetaminophen (Tylenol) 650 mg PO Q6H PRN PRN Reason: Headache/Fever Or Mild Pain Last Admin: 04/27/18 03:35 Dose: 650 mg Hydrocodone Bitart/Acetaminophen ([place] 5/325) 1 tab PO Q4H PRN PRN Reason: Moderate Pain (4-6) Last Admin: 04/29/18 08:27 Dose: 1 tab Hydrocodone Bitart/Acetaminophen ([place] 5/325) 2 tab PO Q4H PRN PRN Reason: Severe Pain (7-10) Al Hydroxide/Mg Hydroxide (Maalox) 30 ml PO Q4H PRN PRN Reason: Indigestion Albuterol/Ipratropium (Duoneb) 3 ml NEB [id number] SCH Last Admin: 04/29/18 08:01 Dose: 3 ml Aspirin (Aspirin) 325 mg PO DAILY [facility] Last Admin: 04/29/18 08:27 Dose: 325 mg Bisacodyl (Dulcolax) 10 mg PO Q12H PRN PRN Reason: Constipation Bisacodyl (Dulcolax) 10 mg [place] Q12H PRN PRN Reason: Constipation Brimonidine Tartrate (Alphagan 0.2% Ophth Soln) 1 drop EA EYE TID [facility] Last Admin: 04/28/18 20:15 Dose: 1 drop Dextrose/Water (Dextrose 50%) 25 gm SLOW IVP PRN PRN PRN Reason: PER HYPOGLYCEMIC PROTOCOL Dorzolamide/Timolol (Cosopt 2-0.5% Ophth Soln) 1 drop EA EYE TID [facility] Last Admin: 04/28/18 20:30 Dose: 1 drp Famotidine (Pepcid) 20 mg SLOW IVP Q12HR [facility] Last Admin: 04/29/18 08:29 Dose: 20 mg Fentanyl (Sublimaze) 25 mcg SLOW IVP Q2H PRN PRN Reason: PAIN MODERATE Fentanyl (Sublimaze) 50 mcg SLOW IVP Q2H PRN PRN Reason: PAIN SEVERE Last Admin: 04/27/18 12:31 Dose: 50 mcg Furosemide (Lasix) 40 mg SLOW IVP 1400 [facility] Stop: 04/29/18 16:00 Glucagon (Glucagon) 1 mg SC PRN PRN PRN Reason: PER HYPOGLYCEMIC PROTOCOL Guaifenesin/Dextromethorphan (Robitussin Dm) 15 ml PO Q4H PRN PRN Reason: Cough Hydralazine HCl (Apresoline) 10 mg SLOW IVP Q6H PRN PRN Reason: To Maintain SBP< 140mmHG Dextrose/Water (D5w) 1,000 mls @ 0 mls/hr IV INF PRN PRN Reason: PRN HYPOGLYCEMIC PROTOCOL Acetaminophen 1,000 mg/ Device 100 mls @ 400 mls/hr IVPB Q6H PRN PRN Reason: Fever/Mild Pain Stop: 04/29/18 10:03 Last Admin: 04/28/18 18:05 Dose: 100 mls Insulin Human Regular (Humulin R) 0 units SC Q4H PRN; Protocol PRN Reason: POST OP SLIDING SCALE Last Admin: 04/29/18 04:47 Dose: 6 unit Metformin HCl (Glucophage) 500 mg PO BID [facility] Last Admin: 04/29/18 08:29 Dose: 500 mg Ondansetron HCl (Zofran) 4 mg IVP Q6H PRN PRN Reason: Nausea/Vomiting Last Admin: 04/27/18 14:18 Dose: 4 mg Potassium Chloride (Kcl) 20 meq IVPB PRN PRN PRN Reason: K level </= 4.0 Last Admin: 04/28/18 06:11 Dose: 20 meq Promethazine HCl (Phenergan) 6.25 mg IM Q4H PRN PRN Reason: Nausea/Vomiting
[2018-04-29] MEDS: Potassium Chloride 20 MEQ/100 ML PREMIX BAG IVPB PRN (12:54)
--- NOTE | 2018-04-29 12:57 | PDOC.CTH ---
<Vianey Marc - Last Filed: 04/29/18 12:57> Cardiology Progress Note - Subjective The pt seen and examined. No overnight events. No cardiac complaints. She is up to chair without any difficulties. She complains of mild discomfort to Sx site. - Objective Vital Signs Temp Pulse Resp Pulse Ox 04/29/18 12:00 99.2 F 04/29/18 10:58 101 H 25 H 98 04/29/18 08:03 96 04/29/18 08:01 103 H 19 96 04/29/18 07:00 98.1 F 04/29/18 04:00 98.7 F Weight 332 lb 14.368 oz 04/28/18 04/29/18 04/30/18 06:59 06:59 06:59 Intake Total 2242 3420 520 Output Total 2395 2655 440 Balance -153 765 80 - Physical Examination General/Neuro: alert & oriented x3 Neck: no JVD present Lungs: other: (diminished at bases) Heart: RRR Abdomen: soft Extremities: other: (No edema) - Telemetry Telemetry Rhythm: SR 90-100s - Labs Result Diagrams: 04/29/18 05:08 04/29/18 05:08 Troponin/CKMB CK-MB (CK-2) 2.9 ng/mL (0-6.6) 04/22/18 00:57 Troponin I 0.165 ng/mL (< 0.028) H 04/22/18 07:23 - Assessment/Plan 1. CAD with s/p CABG x4 on 04/26/18 - stable; On ASA 325mg qd; Not on BBlocker or CARRIE/ARE due to hypotensive; Resume Pravastatin 40mg qd from tonight. 2. HTN - stable 4. CKdz. 5. DM type 2 - managed by PCP 6. Hyperlipidemia - on Statin from tonight 7. Morbid obesity - weight management education given to the pt. 8. Peripheral neuropathy - stable 9. Post-Op Anemia - Receiving 1u PRBC today. MAR reviewed. Review of Systems - Review of Systems Constitutional: reports: no symptoms reported EENTM: reports: no symptoms reported Respiratory: reports: no symptoms reported Cardiac (ROS): reports: no symptoms reported ABD/GI: reports: no symptoms reported : reports: no symptoms reported Musculoskeletal: reports: no symptoms reported Skin: reports: no symptoms reported <Angely Melo - Last Filed: 04/29/18 17:24> Cardiology Progress Note - Objective Vital Signs Temp Pulse Pulse Pulse Resp BP BP 04/29/18 16:00 98.8 F 04/29/18 14:42 99 15 04/29/18 13:27 102 H 97 130/65 124/69 04/29/18 12:00 99.2 F 04/29/18 10:58 101 H 25 H 04/29/18 10:10 100 104 H 131/110 H 109/63 04/29/18 08:03 04/29/18 08:01 103 H 19 04/29/18 08:00 04/29/18 07:00 98.1 F Pulse Ox Pulse Ox Pulse Ox 04/29/18 16:00 04/29/18 14:42 96 04/29/18 13:27 98 98 04/29/18 12:00 04/29/18 10:58 98 04/29/18 10:10 97 96 04/29/18 08:03 96 04/29/18 08:01 96 04/29/18 08:00 98 04/29/18 07:00 Weight 332 lb 14.368 oz 04/28/18 04/29/18 04/30/18 06:59 06:59 06:59 Intake Total 2242 3420 520 Output Total 2395 1695 1640 Balance -153 685 -9520 - Labs Result Diagrams: 04/29/18 05:08 04/29/18 05:08 Troponin/CKMB CK-MB (CK-2) 2.9 ng/mL (0-6.6) 04/22/18 00:57 Troponin I 0.165 ng/mL (< 0.028) H 04/22/18 07:23 - Assessment/Plan Pt. seen and eval. by me. I agree with the A/P by the RELEASE COORDINATOR. He is doing as well as anticipated post CABG.
[2018-04-29] MEDS ORDERED: Furosemide 40 MG/4 ML VIAL SLOW IVP SCH (14:00)
[2018-04-29] MEDS: Brimonidine Tartrate 0.2% Ophth Soln 5 ml Bottle EA EYE SCH ×3 (14:44→21:03)
[2018-04-29] MEDS: DorzolamidE/Timolol 2%/0.5% Ophth Soln 10 ml Bottle EA EYE SCH ×3 (14:50→21:04)
[2018-04-29] MEDS ORDERED: Clopidogrel Bisulfate 75 MG TAB ONE ×2 (19:11→20:49)
[2018-04-29] MEDS: Atorvastatin Calcium 10 MG TAB PO SCH (21:02)
[2018-04-29] MEDS: Famotidine 20 MG TAB PO SCH (21:16)
[2018-04-30] MEDS: HYDROcodone/Acetaminophen 5/325 mg Tablet PO PRN ×2 (01:36→20:56)
[2018-04-30 04:51] LABS: Eosinophils 11 % (0-10); Hemoglobin 9.5 g/dL (14.0-18.0); Lymphocytes 18 % (21-51); MDiff Complete? YES; Mean Corpuscular HGB CONC 33.3 g/dL (32.0-36.0); Mean Corpuscular Volume 84.3 fL (78.0-98.0); Mean Platelet Volume 10.3 fL (7.4-10.4); Monocytes 4 % (0-10); Neutrophil 67 % (42-75); PLT Morphology Comment Appears Decreased; Platelet Count 103 thou/uL (130-400); RBC Distribution Width 14.3 % (11.5-14.5); White Blood Cell (WBC) Count 8.8 thou/uL (4.8-10.8)
[2018-04-30 05:09] LABS: Anion Gap 10 mmol/L (10-20); BUN (Urea Nitrogen) 20 mg/dL (8.4-25.7); Calc. Creatinine Clearance 149 mL/min (70-130); Calcium 8.4 mg/dL (7.8-10.44); Carbon Dioxide 29 mmol/L (23-31); Chloride 106 mmol/L (98-107); Estimated GFR-MDRD 84; Glucose 204 mg/dL (80-115); Potassium 3.5 mmol/L (3.5-5.1); Sodium 141 mmol/L (136-145)
[2018-04-30] MEDS: Insulin Regular 300 UNITS/3 ML VIAL SC PRN ×3 (06:06→20:44)
[2018-04-30] MEDS: metFORMIN 500 MG TAB PO SCH ×2 (08:19→20:49)
[2018-04-30] MEDS: Aspirin 325 MG TAB PO SCH (08:19)
[2018-04-30] MEDS: Famotidine 20 MG TAB PO SCH ×2 (08:19→20:41)
[2018-04-30] MEDS: DorzolamidE/Timolol 2%/0.5% Ophth Soln 10 ml Bottle EA EYE SCH ×3 (08:20→20:41)
[2018-04-30] MEDS: Brimonidine Tartrate 0.2% Ophth Soln 5 ml Bottle EA EYE SCH ×3 (08:20→20:42)
[2018-04-30] MEDS ORDERED: Artificial Tears 18 DROP/0.9 ML EA EYE PRN (08:35)
[2018-04-30] MEDS ORDERED: Bisacodyl 10 MG SUPP PR PRN (08:35)
[2018-04-30] MEDS ORDERED: Nitroglycerin 0.4 MG TAB (25 Tab Bottle) SL PRN (08:35)
[2018-04-30] MEDS ORDERED: diphenhydrAMINE 25 MG CAP PO PRN (08:35)
[2018-04-30] MEDS ORDERED: Mag-Al 1200 mg/1200 mg/30 ML UDCUP PO PRN (08:35)
[2018-04-30] MEDS ORDERED: Guaifenesin DM 100-10/5 ML UDCUP PO PRN (08:35)
[2018-04-30] MEDS ORDERED: Zolpidem Tartrate 5 MG TAB PO PRN (08:35)
[2018-04-30] MEDS ORDERED: Mineral Oil ENEMA PR PRN (08:35)
[2018-04-30] MEDS ORDERED: Insulin Regular 300 UNITS/3 ML VIAL SC SCH (09:00)
--- NOTE | 2018-04-30 09:14 | PRG ---
DATE OF SERVICE: 04/30/2018 This morning he is awake, alert, responsive. He is weak. PHYSICAL EXAMINATION: VITAL SIGNS: Blood pressure 121/76, sats are 97% on room air, respiration rate 18, pulse 80. CHEST: Chest revealed decreased breath sounds, no wheezing. CARDIAC: Normal S1-S2. No gallops. LABORATORY: White count normal. Electrolytes are normal. IMPRESSION: 1. Status post coronary artery bypass graft. 2. Obstructive sleep apnea. 3. Morbid obesity. 4. Severe deconditioning. 5. Atelectasis. PLAN: Transfer out of the ICU. Continue aggressive PT. Outpatient sleep study.
[2018-04-30] MEDS: Docusate 100 MG CAP PO SCH ×2 (09:57→20:41)
[2018-04-30] MEDS: Aspirin 325 mg Enteric Coated Tablet PO SCH (09:57)
--- NOTE | 2018-04-30 10:14 | PDOC.PN ---
- Subjective Encounter Start Date: 04/30/18 Encounter Start Time: 10:00 Doing well. Ambulated in the hallway this morning. - Objective Resuscitation Status: Resuscitation Status FULL:Full Resuscitation MAR Reviewed: Yes Vital Signs & Weight: Vital Signs (12 hours) Temp Pulse Resp BP BP Pulse Ox 04/30/18 10:00 87 04/30/18 09:00 98 F 04/30/18 08:00 98 F 04/30/18 07:00 98 F 77 19 126/81 97 04/30/18 06:43 95 04/30/18 06:30 90 16 95 04/30/18 04:00 99.2 F 04/30/18 03:03 95 04/30/18 02:00 90 13 105/71 98 04/30/18 01:00 87 22 H 108/54 L 99 04/30/18 00:00 99.1 F 89 15 105/66 97 04/29/18 23:00 91 15 92/58 L 95 Weight Admit Weight 5.397 oz Weight 338 lb 6.553 oz Most Recent Monitor Data Heart Rate from ECG 91 NIBP 110/83 NIBP BP-Mean 92 Respiration from ECG 19 SpO2 94 I&O: 04/29/18 04/30/18 05/01/18 06:59 06:59 06:59 Intake Total 3420 1560 400 Output Total 2655 3350 365 Balance 765 -1790 35 Result Diagrams: 04/30/18 04:20 04/30/18 04:20 Additional Labs: Accuchecks 04/30/18 04/29/18 04/29/18 05:47 20:57 17:25 POC Glucose 190 H 219 H 219 H 04/29/18 12:05 POC Glucose 262 H Phys Exam - Physical Examination Constitutional: NAD Respiratory: no wheezing, no rales, no rhonchi, clear to auscultation bilateral Cardiovascular: RRR, no significant murmur, no rub Gastrointestinal: soft, non-tender, no distention Bilateral LE edema. RLE with VEDA drain. Moderately tender. Neurological: non-focal Psychiatric: normal affect, A&O x 3 Dx/Plan (1) 3-vessel CAD Status: Acute (2) NSTEMI (non-ST elevated myocardial infarction) Code(s): I21.4 - NON-ST ELEVATION (NSTEMI) MYOCARDIAL INFARCTION Status: Acute (3) S/P CABG x 4 Status: Acute (4) Diabetes type 2, controlled Code(s): E11.9 - TYPE 2 DIABETES MELLITUS WITHOUT COMPLICATIONS Status: Chronic (5) Diabetic neuropathy Code(s): E11.40 - TYPE 2 DIABETES MELLITUS WITH DIABETIC NEUROPATHY, UNSP Status: Chronic (6) Dyslipidemia Code(s): E78.5 - HYPERLIPIDEMIA, UNSPECIFIED Status: Chronic (7) HTN (hypertension) Code(s): I10 - ESSENTIAL (PRIMARY) HYPERTENSION Status: Chronic (8) Morbid obesity with BMI of 50.0-59.9, adult Code(s): E66.01 - MORBID (SEVERE) OBESITY DUE TO EXCESS CALORIES; Z68.43 - BODY MASS INDEX (BMI) 50-59.9, ADULT Status: Chronic - Plan * Post-op care per [facility]. * Cardiology following. * Continue to mobilize. * Tranfer to tele when bed avail. * Query DVT prophylaxis * May need to increase the insulin as his blood sugars are still a little too high. .
--- NOTE | 2018-04-30 10:19 | PDOC.CTH ---
Cardiology Progress Note - Objective Vital Signs Temp Pulse Resp BP BP Pulse Ox 04/30/18 10:00 87 04/30/18 09:00 98 F 04/30/18 08:00 98 F 04/30/18 07:00 98 F 77 19 126/81 97 04/30/18 06:43 95 04/30/18 06:30 90 16 95 04/30/18 04:00 99.2 F 04/30/18 03:03 95 04/30/18 02:00 90 13 105/71 98 04/30/18 01:00 87 22 H 108/54 L 99 04/30/18 00:00 99.1 F 89 15 105/66 97 04/29/18 23:00 91 15 92/58 L 95 Admit Weight 5.397 oz Weight 338 lb 6.553 oz 04/29/18 04/30/18 05/01/18 06:59 06:59 06:59 Intake Total 3420 1560 400 Output Total 2655 3350 365 Balance 765 -1790 35 - Physical Examination General/Neuro: alert & oriented x3 Neck: carotid US brisk Lungs: CTA Heart: RRR Abdomen: NT/ND - Labs Result Diagrams: 04/30/18 04:20 04/30/18 04:20 Troponin/CKMB CK-MB (CK-2) 2.9 ng/mL (0-6.6) 04/22/18 00:57 Troponin I 0.165 ng/mL (< 0.028) H 04/22/18 07:23 - Assessment/Plan 1. CAD with s/p CABG x4 on 04/26/18 - stable; He has walked this AM in CCU.On ASA 325mg qd; Not on BBlocker or CARRIE/ARE due to hypotensive;BP improving, restart as tolerated. Resume Pravastatin 40mg qd from tonight. 2. HTN - stable 4. CKdz. 5. DM type 2 - managed by PCP 6. Hyperlipidemia - on Statin from tonight 7. Morbid obesity - weight management education given to the pt. 8. Peripheral neuropathy - stable 9. Post-Op Anemia - Receiving 1u PRBC today. MAR reviewed.
[2018-04-30] MEDS: Carvedilol 3.125 MG TAB PO SCH (16:30)
[2018-04-30] MEDS: Insulin Regular 300 UNITS/3 ML VIAL SC SCH (16:31)
[2018-04-30] MEDS: Atorvastatin Calcium 10 MG TAB PO SCH (20:41)
[2018-05-01] MEDS: Carvedilol 3.125 MG TAB PO SCH (09:21)
[2018-05-01] MEDS: Brimonidine Tartrate 0.2% Ophth Soln 5 ml Bottle EA EYE SCH ×3 (09:22→21:13)
[2018-05-01] MEDS: Insulin Regular 300 UNITS/3 ML VIAL SC SCH ×2 (09:22→17:40)
[2018-05-01] MEDS: Aspirin 325 mg Enteric Coated Tablet PO SCH (09:22)
[2018-05-01] MEDS: Famotidine 20 MG TAB PO SCH ×2 (09:24→21:13)
[2018-05-01] MEDS: Docusate 100 MG CAP PO SCH ×2 (09:24→21:13)
[2018-05-01] MEDS: metFORMIN 500 MG TAB PO SCH (09:24)
[2018-05-01] MEDS: HYDROcodone/Acetaminophen 5/325 mg Tablet PO PRN ×3 (09:24→21:15)
[2018-05-01] MEDS: DorzolamidE/Timolol 2%/0.5% Ophth Soln 10 ml Bottle EA EYE SCH ×3 (09:29→21:14)
--- NOTE | 2018-05-01 10:10 | RAD ---
CHEST TWO VIEWS: HISTORY: Cough and fever. Post CABG. COMPARISON: Radiograph from 04/29/2018. FINDINGS: There is a layering left pleural effusion. There are some atelectatic changes in the left upper lobe and lingula. Mild thickening of the right minor fissure, likely from small volume. No pneumothorax . No focal infiltrate. IMPRESSION: 1. Layering left effusion. 2. Central venous catheter tip in the mid superior vena cava, in good position. POS: [facility]
--- NOTE | 2018-05-01 10:44 | PRG ---
DATE OF SERVICE: 05/01/2018 SUBJECTIVE: This morning, the patient is better, less short of breath, still having chest pain. OBJECTIVE: VITAL SIGNS: Sats are on room air, respirations 18, temperature 99, blood pressure 146/64. CHEST: No wheezing or crackles. CARDIAC: Normal S1 and S2, no gallops. ABDOMEN: Soft. EXTREMITIES: No edema. IMPRESSION: Status post coronary artery bypass graft, obesity, probably sleep apnea, atelectasis. PLAN: Continue PT, eventually possible rehabilitation.
[2018-05-01 12:23] LABS: Hemoglobin 10.5 g/dL (14.0-18.0); Mean Corpuscular HGB CONC 32.7 g/dL (32.0-36.0); Mean Corpuscular Hemoglobin 27.1 pg (27.0-31.0); Mean Corpuscular Volume 82.9 fL (78.0-98.0); Platelet Count 160 thou/uL (130-400); RBC Distribution Width 14.1 % (11.5-14.5); Red Blood Cell (RBC) Count 3.88 mill/uL (4.70-6.10); White Blood Cell (WBC) Count 9.8 thou/uL (4.8-10.8)
[2018-05-01 12:39] LABS: Band 4 % (5-11); Eosinophils 9 % (0-10); Lymphocytes 31 % (21-51); MDiff Complete? YES; Monocytes 3 % (0-10); Neutrophil 52 % (42-75); PLT Morphology Comment Appears Adequate; Polychromasia MODERATE = 3-4 cells (100X) (0-2/hpf); Reactive Lymphocytes 1 % (0-10)
--- NOTE | 2018-05-01 12:39 | PDOC.CTH ---
<Vianey Marc - Last Filed: 05/01/18 12:37> Cardiology Progress Note - Subjective The pt seen and examined. No overnight events. No cardiac complaints. - Objective Vital Signs Temp Pulse Resp BP Pulse Ox 05/01/18 12:16 89 18 97 05/01/18 07:43 94 L 05/01/18 07:38 99.5 F 93 18 146/64 H 94 L 05/01/18 07:08 85 18 98 05/01/18 04:00 98.0 F 85 20 130/69 95 Admit Weight 369 lb Weight 321 lb 3.2 oz 04/30/18 05/01/18 05/02/18 06:59 06:59 06:59 Intake Total 1560 2040 Output Total 3350 1365 Balance -1790 675 - Physical Examination General/Neuro: alert & oriented x3 Neck: no JVD present Lungs: CTA (diminished at bases) Heart: RRR Abdomen: soft Extremities: other: (VEDA drain to RLL. 3-4+ pitting BLE edema) - Labs Result Diagrams: 05/01/18 12:13 04/30/18 04:20 Troponin/CKMB CK-MB (CK-2) 2.9 ng/mL (0-6.6) 04/22/18 00:57 Troponin I 0.165 ng/mL (< 0.028) H 04/22/18 07:23 - Assessment/Plan 1. CAD with s/p CABG x4 on 04/26/18 - stable with ASA 325mg qd and Coreg 3.125mg which will be increased to 6.25mg from this PM; Resume Pravastatin 40mg qd from tonight. 2. HTN - stable 4. CKdz. 5. DM type 2 - managed by PCP 6. Hyperlipidemia - on Statin; re-check Lipid level. 7. Morbid obesity - weight management education given to the pt. 8. Peripheral neuropathy - stable 9. Post-Op Anemia - Receiving 1u PRBC on 04/30/18. MAR reviewed. Review of Systems - Review of Systems Constitutional: reports: no symptoms reported EENTM: reports: no symptoms reported Respiratory: reports: no symptoms reported Cardiac (ROS): reports: no symptoms reported ABD/GI: reports: no symptoms reported : reports: no symptoms reported Musculoskeletal: reports: no symptoms reported <Angely Melo - Last Filed: 05/01/18 17:19> Cardiology Progress Note - Objective Vital Signs Temp Pulse Pulse Pulse Resp BP BP 05/01/18 15:03 99.1 F 91 18 05/01/18 14:15 94 90 133/81 05/01/18 12:16 89 18 05/01/18 11:26 99.6 F 89 18 05/01/18 07:43 05/01/18 07:38 99.5 F 93 18 146/64 H 05/01/18 07:08 85 18 BP Pulse Ox Pulse Ox 05/01/18 15:03 133/81 93 L 05/01/18 14:15 98 05/01/18 12:16 97 05/01/18 11:26 120/71 94 L 05/01/18 07:43 94 L 05/01/18 07:38 94 L 05/01/18 07:08 98 Admit Weight 369 lb Weight 321 lb 3.2 oz 04/30/18 05/01/18 05/02/18 06:59 06:59 06:59 Intake Total 1560 2040 Output Total 3350 1365 Balance -1790 675 - Labs Result Diagrams: 05/01/18 12:13 04/30/18 04:20 Troponin/CKMB CK-MB (CK-2) 2.9 ng/mL (0-6.6) 04/22/18 00:57 Troponin I 0.165 ng/mL (< 0.028) H 04/22/18 07:23 - Assessment/Plan Pt. seen and eval. by me. I agree with the A/P by the RIB PULLER. chest clear. RRR. Mild edema. Left leg still has a drain s/p SVG retrieval.
--- NOTE | 2018-05-01 15:04 | PRG ---
DATE OF SERVICE: 05/01/2018 SUBJECTIVE: The patient is doing well. He still has some mild right-sided parasternal discomfort fr om his incision. He reports that he does not believe he has actually had a bowel movement since his surgery. He is tolerating a diet without difficulty. PHYSICAL EXAMINATION: VITAL SIGNS: T-max is 101.0, pulse 89, respirations 18, O2 sat 97% on room air, BP is 120/71. GENERAL: Obese, age appropriate male in no distress. He is awake, alert, and oriented, sitting up i n a chair, conversant. CARDIOVASCULAR: Heart regular rate and rhythm without murmurs. LUNGS: Clear bilaterally with good air exchange. ABDOMEN: Soft, nontender. EXTREMITIES: Warm and dry. LABORATORY DATA: White count is 9.8, hemoglobin 10.5, platelet count 160. Blood sugar is 228, 184, and 229. IMPRESSION AND PLAN: 1. Coronary artery disease, status post bypass graft surgery. The patient is doing relatively well post-bypass. Complicating issues include thrombocytopenia, diabetes mellitus, now with fever and con stipation. Continue to mobilize the patient as possible and postop management per [facility]. 2. Non-ST elevation myocardial infarction. 3. Diabetes mellitus, control is only moderate. The patient is on oral metformin. He is on a custo mized sliding scale with higher dose and the aggressive regimen; however, he continues to have blood sugars running over 200 on average. I discussed this with the patient. He has never been on a highe r dose of metformin, but he seems to be tolerating it well without any difficulty and I will go ahead and up this dose to 850 mg p.o. b.i.d. I believe he will probably be more responsive to oral hypogl ycemic agents than additional insulin. 4. Fever, etiology is unclear. Wound looks good. Chest x-ray has small effusion, has no overt sign s of infection. Has a UA pending. Central line will come out. 5. Diabetic neuropathy, stable, chronic. 6. Constipation. The patient has multiple PRNs to be used to help with that. 7. Dyslipidemia, stable, chronic. Continue with statin. 8. Hypertension, chronic, stable. No change. 9. Thrombocytopenia. The patient has not been on any anticoagulation because of the thrombocytopeni a since the surgery. His platelet count is certainly better today that may be an option. Certainly worrisome for the possibility of deep venous thrombosis in the setting of postoperative fever. 7. Morbid obesity, stable.
[2018-05-01] MEDS: Carvedilol 6.25 MG TAB PO SCH (17:39)
[2018-05-01] MEDS: metFORMIN 850 MG TAB PO SCH (17:39)
[2018-05-01 20:04] LABS: Bilirubin Small (Negative); Blood, Urine Negative (Negative); Clarity CLOUDY (Clear); Glucose, Urine (Dipstick) Negative (Negative); Leukocyte Small (Negative); Nitrite Negative (Negative); Protein, Urine (Dipstick) Negative (Neg-Trace); Specific Gravity, Urine 1.024 (1.002-1.036); pH, Urine 5.5 (5.0-9.0)
[2018-05-01 20:05] LABS: Bacteria/HPF 4+ HPF (None Seen); Hyaline Casts/LPF 4-6 HYALINE CAST LPF (0-3 Hyaline); Pathc Cast-AUWi Flag 0.14 (0-2.49); Squamous Epithelial 0-3 HPF (0-3); WBC/HPF 0-3 HPF (0-3)
[2018-05-01] MEDS: Atorvastatin Calcium 10 MG TAB PO SCH (21:12)
[2018-05-01] MEDS: Enoxaparin Sodium 60 MG/0.6 ML SYRINGE SC SCH (21:14)
[2018-05-02] MEDS: HYDROcodone/Acetaminophen 5/325 mg Tablet PO PRN ×5 (01:42→22:48)
[2018-05-02 07:10] LABS: #Basophils 0.1 thou/uL (0.0-0.2); #Eosinphils 0.5 thou/uL (0.0-0.7); #Lymphocytes 2.3 thou/uL (1.20-3.40); #Neutrophils 5.2 thou/uL (1.40-6.50); %Basophils 0.6 % (0.0-1.0); %Eosinophils 5.7 % (0.0-10.0); %Lymphocytes 25.8 % (21.0-51.0); Mean Corpuscular HGB CONC 32.4 g/dL (32.0-36.0); Mean Corpuscular Volume 83.5 fL (78.0-98.0); Mean Platelet Volume 9.6 fL (7.4-10.4); Platelet Count 156 thou/uL (130-400); RBC Distribution Width 14.3 % (11.5-14.5); Red Blood Cell (RBC) Count 3.68 mill/uL (4.70-6.10); White Blood Cell (WBC) Count 9.1 thou/uL (4.8-10.8)
[2018-05-02 07:15] LABS: Anion Gap 12 mmol/L (10-20); BUN (Urea Nitrogen) 21 mg/dL (8.4-25.7); Calc. Creatinine Clearance 148 mL/min (70-130); Calcium 8.8 mg/dL (7.8-10.44); Carbon Dioxide 27 mmol/L (23-31); Chloride 101 mmol/L (98-107); Estimated GFR-MDRD 87; Glucose 180 mg/dL (80-115); Potassium 3.5 mmol/L (3.5-5.1); Sodium 136 mmol/L (136-145)
--- NOTE | 2018-05-02 08:22 | PDOC.CTH ---
<Vianey aMrc - Last Filed: 05/02/18 08:19> Cardiology Progress Note - Subjective The pt seen and examined. No overnight events. No cardiac complaints. He is already walking this AM with his . - Objective Vital Signs Temp Pulse Resp BP Pulse Ox 05/02/18 06:33 85 20 95 05/02/18 04:00 98.3 F 74 20 110/61 96 Admit Weight 369 lb Weight 321 lb 3.2 oz 05/01/18 05/02/18 05/03/18 06:59 06:59 06:59 Intake Total 2040 960 Output Total 1365 550 Balance 675 410 - Physical Examination General/Neuro: alert & oriented x3 Neck: no JVD present Lungs: CTA (diminished at bases) Heart: RRR Abdomen: soft Extremities: other: (3-4+ pitting RLE edema and 3+ pitting LLE edema) - Telemetry Telemetry Rhythm: SR 90s - Labs Result Diagrams: 05/02/18 06:40 05/02/18 06:40 Troponin/CKMB CK-MB (CK-2) 2.9 ng/mL (0-6.6) 04/22/18 00:57 Troponin I 0.165 ng/mL (< 0.028) H 04/22/18 07:23 - Assessment/Plan 1. CAD with s/p CABG x4 on 04/26/18 - stable with ASA 325mg qd and Coreg 6.25mg BID. from this PM; Resume Pravastatin 80mg qd from tonight. 2. HTN - stable; May start low dose of CARRIE for hx of DM and Eho result with diastolic dysfunction. 4. CKD - stable 5. DM type 2 - managed by PCP 6. Hyperlipidemia - on Statin; re-check Lipid level. 7. Morbid obesity - weight management education given to the pt. 8. Peripheral neuropathy - stable 9. Post-Op Anemia - Receiving 1u PRBC on 04/30/18. MAR reviewed. Review of Systems - Review of Systems Constitutional: reports: weakness EENTM: reports: no symptoms reported Respiratory: reports: no symptoms reported Cardiac (ROS): reports: no symptoms reported ABD/GI: reports: no symptoms reported : reports: no symptoms reported Musculoskeletal: reports: no symptoms reported <Angely Melo - Last Filed: 05/02/18 20:45> Cardiology Progress Note - Objective Vital Signs Temp Pulse Pulse Pulse Resp BP BP 05/02/18 18:40 80 18 05/02/18 17:36 126/81 05/02/18 15:43 98.8 F 79 18 05/02/18 14:37 80 20 05/02/18 13:35 82 78 130/77 05/02/18 11:43 98.6 F 79 18 05/02/18 08:51 126/81 05/02/18 08:46 97.8 F 78 17 BP BP Pulse Ox 05/02/18 18:40 96 05/02/18 17:36 05/02/18 15:43 120/61 96 05/02/18 14:37 05/02/18 13:35 119/72 05/02/18 11:43 121/67 94 L 05/02/18 08:51 96 05/02/18 08:46 105/68 96 Admit Weight 369 lb Weight 321 lb 3.2 oz 05/01/18 05/02/18 05/03/18 06:59 06:59 06:59 Intake Total 2040 2160 Output Total 1365 825 30 Balance 675 1335 -30 - Labs Result Diagrams: 05/02/18 06:40 05/02/18 06:40 Troponin/CKMB CK-MB (CK-2) 2.9 ng/mL (0-6.6) 04/22/18 00:57 Troponin I 0.165 ng/mL (< 0.028) H 04/22/18 07:23 - Assessment/Plan Pt. seen and eval. by me. I agree with the A/P by the FISH EGG PACKER. He is ambulating some. RRR,chest clear. Mild edema of the lower legs.
[2018-05-02] MEDS: Famotidine 20 MG TAB PO SCH ×2 (08:51→20:19)
[2018-05-02] MEDS: Carvedilol 6.25 MG TAB PO SCH ×2 (08:51→17:36)
[2018-05-02] MEDS: Bisacodyl 5 MG TAB PO PRN (08:52)
[2018-05-02] MEDS: Aspirin 325 mg Enteric Coated Tablet PO SCH (08:52)
[2018-05-02] MEDS: Docusate 100 MG CAP PO SCH ×2 (08:52→20:19)
[2018-05-02] MEDS: metFORMIN 850 MG TAB PO SCH ×2 (08:52→17:34)
[2018-05-02] MEDS: Insulin Regular 300 UNITS/3 ML VIAL SC PRN ×3 (08:53→17:36)
[2018-05-02] MEDS: Insulin Regular 300 UNITS/3 ML VIAL SC SCH ×2 (08:53→17:35)
--- NOTE | 2018-05-02 10:35 | PRG ---
DATE OF SERVICE: 05/02/2018 SUBJECTIVE: He is doing well, less pain, less shortness of breath. PHYSICAL EXAMINATION: VITAL SIGNS: Blood pressure is 121/81, temperature is 97, respiration 17, O2 sat 96%. CHEST: No wheezing. CARDIAC: Normal S1, S2, no gallops. ABDOMEN: Soft, no masses. LABORATORY DATA: White count 9000. Electrolytes are normal. IMPRESSION: 1. Status post coronary artery bypass graft. 2. Morbid obesity. 3. Respiratory failure. 4. Probably sleep apnea. PLAN: He is doing quite well. We will continue PT, aggressive care. DISPOSITION: As per Surgery.
[2018-05-02] MEDS: Brimonidine Tartrate 0.2% Ophth Soln 5 ml Bottle EA EYE SCH ×3 (10:37→20:20)
[2018-05-02] MEDS: Enoxaparin Sodium 60 MG/0.6 ML SYRINGE SC SCH ×2 (10:38→20:19)
[2018-05-02] MEDS: DorzolamidE/Timolol 2%/0.5% Ophth Soln 10 ml Bottle EA EYE SCH ×3 (10:43→20:20)
[2018-05-02] MEDS: Atorvastatin Calcium 20 MG TAB PO SCH (20:19)
[2018-05-02] MEDS: Cefdinir 300 MG CAP PO SCH (20:19)
[2018-05-02] MEDS ORDERED: Pravastatin Sodium 40 MG TAB PO SCH (21:00)
[2018-05-03 06:46] LABS: Cardiac Risk 5.5 (Less than 4.5)
--- NOTE | 2018-05-03 08:48 | PDOC.CTH ---
<Vianey Marc - Last Filed: 05/03/18 08:49> Cardiology Progress Note - Subjective The pt seen and examined. No overnight events. No cardiac complaints. - Objective Vital Signs Temp Pulse Resp BP Pulse Ox 05/03/18 07:05 80 20 93 L 05/03/18 04:16 98.2 F 78 22 H 129/79 92 L 05/03/18 00:00 98.3 F 77 16 128/73 94 L Admit Weight 369 lb Weight 321 lb 3.2 oz 05/02/18 05/03/18 05/04/18 06:59 06:59 06:59 Intake Total 2160 500 Output Total 592 552 1470 Balance 1335 -125 -550 - Physical Examination General/Neuro: alert & oriented x3 Neck: no JVD present Lungs: CTA Heart: RRR Abdomen: soft Extremities: other: (MSI ANA; VEDA drain to RLE. 2+ pitting BLE edema) - Telemetry Telemetry Rhythm: SR - Labs Result Diagrams: 05/02/18 06:40 05/02/18 06:40 Troponin/CKMB CK-MB (CK-2) 2.9 ng/mL (0-6.6) 04/22/18 00:57 Troponin I 0.165 ng/mL (< 0.028) H 04/22/18 07:23 - Assessment/Plan 1. CAD with s/p CABG x4 on 04/26/18 - stable with ASA 325mg qd, Lipitor 20mg qd and Coreg 6.25mg BID. 2. HTN - stable; Will start Lisinopril 2.5mg qd for hx of DM and diastolic dysfunction. Cont. to monitor 4. CKD - stable 5. DM type 2 - managed by PCP 6. Hyperlipidemia - on Statin 7. Morbid obesity - weight management education given to the pt. 8. Peripheral neuropathy - stable 9. Post-Op Anemia - Receiving 1u PRBC on 04/30/18. MAR reviewed. Review of Systems - Review of Systems Constitutional: reports: weakness EENTM: reports: no symptoms reported Respiratory: reports: no symptoms reported Cardiac (ROS): reports: no symptoms reported ABD/GI: reports: no symptoms reported : reports: no symptoms reported Musculoskeletal: reports: no symptoms reported <Angely Melo - Last Filed: 10/26/18 15:18> Cardiology Progress Note - Objective Vital Signs Temp Pulse Pulse Pulse Resp BP BP 05/03/18 13:09 88 24 H 05/03/18 11:48 98.7 F 86 16 05/03/18 10:12 94 93 134/76 05/03/18 09:16 122/61 05/03/18 07:39 99.2 F 72 18 05/03/18 07:05 80 20 05/03/18 04:16 98.2 F 78 22 H BP BP BP Pulse Ox Pulse Ox Pulse Ox 05/03/18 13:09 05/03/18 11:48 124/69 96 05/03/18 10:12 116/89 100 100 05/03/18 09:16 05/03/18 07:39 113/58 L 97 05/03/18 07:05 93 L 05/03/18 04:16 129/79 92 L Admit Weight 369 lb Weight 321 lb 3.2 oz 05/02/18 05/03/18 05/04/18 06:59 06:59 06:59 Intake Total 2160 500 Output Total 889 683 0404 Balance 1335 -125 -550 - Labs Result Diagrams: 05/02/18 06:40 05/02/18 06:40 Troponin/CKMB CK-MB (CK-2) 2.9 ng/mL (0-6.6) 04/22/18 00:57 Troponin I 0.165 ng/mL (< 0.028) H 04/22/18 07:23 - Assessment/Plan Pt. seen and eval, by me. I agree with the A/P by the RADIOGRAPHY TECHNICIAN. Hopefully home soon. Drain is still in the right leg. Continue diuretics. Chest clear. RRR.
[2018-05-03] MEDS: Carvedilol 6.25 MG TAB PO SCH ×2 (09:16→17:45)
[2018-05-03] MEDS: Insulin Regular 300 UNITS/3 ML VIAL SC SCH ×2 (09:17→17:46)
[2018-05-03] MEDS: Aspirin 325 mg Enteric Coated Tablet PO SCH (09:18)
[2018-05-03] MEDS: metFORMIN 850 MG TAB PO SCH ×2 (09:18→17:46)
[2018-05-03] MEDS: Cefdinir 300 MG CAP PO SCH ×2 (09:19→21:01)
[2018-05-03] MEDS: Brimonidine Tartrate 0.2% Ophth Soln 5 ml Bottle EA EYE SCH ×3 (09:19→21:04)
[2018-05-03] MEDS: Docusate 100 MG CAP PO SCH ×2 (09:19→21:02)
[2018-05-03] MEDS: Lisinopril 2.5 MG TAB PO SCH (09:20)
[2018-05-03] MEDS: Famotidine 20 MG TAB PO SCH ×2 (09:20→21:01)
[2018-05-03] MEDS: Enoxaparin Sodium 60 MG/0.6 ML SYRINGE SC SCH ×2 (09:21→21:03)
--- NOTE | 2018-05-03 09:56 | PRG ---
DATE OF SERVICE: 05/03/2018 SUBJECTIVE: This morning, awake, alert, and responsive, in no distress. OBJECTIVE: VITAL SIGNS: Sats are 96% on room air, respiration rate 18, temperature 99, blood pressure 120/61. CHEST: Reveals decreased breath sounds, no wheezing. CARDIAC: Normal S1, S2. No gallops. ABDOMEN: Soft, no masses. IMPRESSION: 1. [place] urinary tract infection. 2. Morbid obesity. 3. Probably sleep apnea. 4. Status post coronary artery bypass graft. PLAN: Continue aggressive PT. P.o. antibiotics for UTI. DISPOSITION: Home anytime if okay with Surgery.
[2018-05-03] MEDS: DorzolamidE/Timolol 2%/0.5% Ophth Soln 10 ml Bottle EA EYE SCH ×3 (10:53→21:04)
[2018-05-03] MEDS: Insulin Regular 300 UNITS/3 ML VIAL SC PRN (11:29)
[2018-05-03] MEDS: HYDROcodone/Acetaminophen 5/325 mg Tablet PO PRN ×2 (13:11→21:02)
[2018-05-03] MEDS: Atorvastatin Calcium 20 MG TAB PO SCH (21:02)
--- NOTE | 2018-05-03 22:00 | PDOC.PN ---
- Subjective Encounter Start Date: 05/03/18 Encounter Start Time: 10:50 Feeling well. Has been ambulating. Still has some pain in the right leg. Cough productive of yellow sputum. Using the IS often. - Objective Resuscitation Status: Resuscitation Status FULL:Full Resuscitation Vital Signs & Weight: Vital Signs (12 hours) Temp Pulse Pulse Pulse Resp BP BP 05/03/18 19:50 98.6 F 81 16 05/03/18 18:30 84 16 05/03/18 17:45 128/64 05/03/18 15:47 98.5 F 84 18 05/03/18 13:09 88 24 H 05/03/18 11:48 98.7 F 86 16 05/03/18 10:12 94 93 134/76 BP BP BP Pulse Ox Pulse Ox Pulse Ox 05/03/18 19:50 117/69 95 05/03/18 18:30 98 05/03/18 17:45 05/03/18 15:47 109/63 96 05/03/18 13:09 05/03/18 11:48 124/69 96 05/03/18 10:12 116/89 100 100 Weight Admit Weight 369 lb Weight 321 lb 3.2 oz Most Recent Monitor Data Heart Rate from ECG 92 NIBP 106/76 NIBP BP-Mean 120 Respiration from ECG 15 SpO2 95 I&O: 05/02/18 05/03/18 05/04/18 06:59 06:59 06:59 Intake Total 2160 1220 Output Total 258 453 1334 Balance 1335 -125 -670 Result Diagrams: 05/02/18 06:40 05/02/18 06:40 Additional Labs: Accuchecks 05/03/18 05/03/18 05/03/18 20:30 16:59 10:57 POC Glucose 148 H 137 H 223 H 05/03/18 06:02 POC Glucose 142 H Phys Exam - Physical Examination Constitutional: NAD Respiratory: no wheezing, no rales, no rhonchi, clear to auscultation bilateral Cardiovascular: RRR, no significant murmur, no rub Gastrointestinal: soft, non-tender, no distention RLE VEDA drain. Calf edema and TTP. Modest edema LLE. Psychiatric: normal affect, A&O x 3 Dx/Plan (1) 3-vessel CAD Status: Acute (2) NSTEMI (non-ST elevated myocardial infarction) Code(s): I21.4 - NON-ST ELEVATION (NSTEMI) MYOCARDIAL INFARCTION Status: Acute (3) S/P CABG x 4 Status: Acute (4) Diabetes type 2, controlled Code(s): E11.9 - TYPE 2 DIABETES MELLITUS WITHOUT COMPLICATIONS Status: Chronic (5) Diabetic neuropathy Code(s): E11.40 - TYPE 2 DIABETES MELLITUS WITH DIABETIC NEUROPATHY, UNSP Status: Chronic (6) Dyslipidemia Code(s): E78.5 - HYPERLIPIDEMIA, UNSPECIFIED Status: Chronic (7) HTN (hypertension) Code(s): I10 - ESSENTIAL (PRIMARY) HYPERTENSION Status: Chronic Comment: Low dose ACEI added. (8) Morbid obesity with BMI of 50.0-59.9, adult Code(s): E66.01 - MORBID (SEVERE) OBESITY DUE TO EXCESS CALORIES; Z68.43 - BODY MASS INDEX (BMI) 50-59.9, ADULT Status: Chronic (9) Bronchitis after surgery Code(s): J40 - BRONCHITIS, NOT SPECIFIED ACUTE OR CHRONIC Status: Acute (10) UTI due to Klebsiella species Code(s): N39.0 - URINARY TRACT INFECTION, SITE NOT SPECIFIED; B96.1 - KLEBSIELLA PNEUMONIAE THE CAUSE OF DISEASES CLASSD ELSWHR Status: Acute - Plan * Continuing to mobilize. Improving. Blood sugars controlled. Can discharge when OK with surg. * On Omnicef which should cover the UTI and the bronchitis.
[2018-05-04] MEDS: Carvedilol 6.25 MG TAB PO SCH ×2 (08:48→16:54)
[2018-05-04] MEDS: Cefdinir 300 MG CAP PO SCH ×2 (08:48→21:37)
[2018-05-04] MEDS: Docusate 100 MG CAP PO SCH ×2 (08:48→21:38)
[2018-05-04] MEDS: metFORMIN 850 MG TAB PO SCH ×2 (08:48→16:54)
[2018-05-04] MEDS: Brimonidine Tartrate 0.2% Ophth Soln 5 ml Bottle EA EYE SCH ×3 (08:49→22:35)
[2018-05-04] MEDS: Aspirin 325 mg Enteric Coated Tablet PO SCH (08:49)
[2018-05-04] MEDS: Famotidine 20 MG TAB PO SCH ×2 (08:49→21:37)
[2018-05-04] MEDS: DorzolamidE/Timolol 2%/0.5% Ophth Soln 10 ml Bottle EA EYE SCH ×3 (08:49→21:38)
[2018-05-04] MEDS: Lisinopril 2.5 MG TAB PO SCH (08:49)
[2018-05-04] MEDS: Insulin Regular 300 UNITS/3 ML VIAL SC SCH ×2 (08:50→16:54)
[2018-05-04] MEDS: Enoxaparin Sodium 60 MG/0.6 ML SYRINGE SC SCH ×2 (09:30→21:42)
[2018-05-04] MEDS ORDERED: Furosemide 40 MG TAB PO SCH (17:00)
[2018-05-04] MEDS: HYDROcodone/Acetaminophen 5/325 mg Tablet PO PRN (17:17)
--- NOTE | 2018-05-04 18:50 | PDOC.PN ---
- Subjective Encounter Start Date: 05/04/18 Encounter Start Time: 12:40 Doing well. ambulating well. No complaints. Still has cough. - Objective Resuscitation Status: Resuscitation Status FULL:Full Resuscitation Vital Signs & Weight: Vital Signs (12 hours) Temp Pulse Pulse Pulse Resp BP BP 05/04/18 16:54 132/70 05/04/18 16:18 87 84 136/64 05/04/18 16:00 98.5 F 78 18 05/04/18 13:26 88 24 H 05/04/18 12:39 93 86 122/57 L 05/04/18 11:15 97.9 F 93 18 05/04/18 08:43 99.3 F 86 18 05/04/18 07:06 73 16 BP BP BP Pulse Ox Pulse Ox Pulse Ox 05/04/18 16:54 05/04/18 16:18 112/57 L 96 97 05/04/18 16:00 130/71 97 05/04/18 13:26 05/04/18 12:39 117/58 L 96 94 L 05/04/18 11:15 117/62 97 05/04/18 08:43 116/57 L 96 05/04/18 07:06 93 L Weight Admit Weight 369 lb Weight 329 lb Most Recent Monitor Data Heart Rate from ECG 92 NIBP 106/76 NIBP BP-Mean 120 Respiration from ECG 15 SpO2 95 I&O: 05/03/18 05/04/18 05/05/18 06:59 06:59 06:59 Intake Total 1520 Output Total 125 2230 Balance -125 -710 Result Diagrams: 05/02/18 06:40 05/02/18 06:40 Additional Labs: Accuchecks 05/04/18 05/04/18 05/03/18 10:39 06:22 20:30 POC Glucose 163 H 154 H 148 H Phys Exam - Physical Examination Constitutional: NAD Respiratory: no wheezing, no rales, no rhonchi, clear to auscultation bilateral Cardiovascular: RRR, no significant murmur, no rub RLE edema with VEDA drain Dx/Plan (1) 3-vessel CAD Status: Acute (2) NSTEMI (non-ST elevated myocardial infarction) Code(s): I21.4 - NON-ST ELEVATION (NSTEMI) MYOCARDIAL INFARCTION Status: Acute (3) S/P CABG x 4 Status: Acute (4) Diabetes type 2, controlled Code(s): E11.9 - TYPE 2 DIABETES MELLITUS WITHOUT COMPLICATIONS Status: Chronic (5) Diabetic neuropathy Code(s): E11.40 - TYPE 2 DIABETES MELLITUS WITH DIABETIC NEUROPATHY, UNSP Status: Chronic (6) Dyslipidemia Code(s): E78.5 - HYPERLIPIDEMIA, UNSPECIFIED Status: Chronic (7) HTN (hypertension) Code(s): I10 - ESSENTIAL (PRIMARY) HYPERTENSION Status: Chronic Comment: Low dose ACEI added. (8) Morbid obesity with BMI of 50.0-59.9, adult Code(s): E66.01 - MORBID (SEVERE) OBESITY DUE TO EXCESS CALORIES; Z68.43 - BODY MASS INDEX (BMI) 50-59.9, ADULT Status: Chronic (9) Bronchitis after surgery Code(s): J40 - BRONCHITIS, NOT SPECIFIED ACUTE OR CHRONIC Status: Acute (10) UTI due to Klebsiella species Code(s): N39.0 - URINARY TRACT INFECTION, SITE NOT SPECIFIED; B96.1 - KLEBSIELLA PNEUMONIAE THE CAUSE OF DISEASES CLASSD ELSWHR Status: Acute - Plan * On po abx. * Blood sugars are great. * Drain output still too high. Hope to get VEDA out of leg tomorrow and possibly discharge..
[2018-05-04] MEDS: Atorvastatin Calcium 20 MG TAB PO SCH (21:37)
[2018-05-04] MEDS: Bisacodyl 5 MG TAB PO PRN (21:42)
[2018-05-05] MEDS: HYDROcodone/Acetaminophen 5/325 mg Tablet PO PRN ×3 (00:07→20:05)
[2018-05-05 06:46] LABS: Anion Gap 11 mmol/L (10-20); BUN (Urea Nitrogen) 16 mg/dL (8.4-25.7); Calc. Creatinine Clearance 151 mL/min (70-130); Calcium 8.9 mg/dL (7.8-10.44); Carbon Dioxide 29 mmol/L (23-31); Chloride 98 mmol/L (98-107); Estimated GFR-MDRD 87; Glucose 137 mg/dL (80-115); Potassium 3.4 mmol/L (3.5-5.1); Sodium 135 mmol/L (136-145)
[2018-05-05] MEDS ORDERED: Furosemide 40 MG TAB PO SCH (07:30)
[2018-05-05] MEDS: Docusate 100 MG CAP PO SCH ×2 (09:16→20:03)
[2018-05-05] MEDS: Brimonidine Tartrate 0.2% Ophth Soln 5 ml Bottle EA EYE SCH ×3 (09:16→20:04)
[2018-05-05] MEDS: Lisinopril 2.5 MG TAB PO SCH (09:16)
[2018-05-05] MEDS: Enoxaparin Sodium 60 MG/0.6 ML SYRINGE SC SCH ×2 (09:16→20:04)
[2018-05-05] MEDS: DorzolamidE/Timolol 2%/0.5% Ophth Soln 10 ml Bottle EA EYE SCH ×3 (09:16→20:04)
[2018-05-05] MEDS: metFORMIN 850 MG TAB PO SCH ×2 (09:17→17:08)
[2018-05-05] MEDS: Cefdinir 300 MG CAP PO SCH ×2 (09:17→20:03)
[2018-05-05] MEDS: Bisacodyl 5 MG TAB PO PRN (09:17)
[2018-05-05] MEDS: Famotidine 20 MG TAB PO SCH ×2 (09:18→20:03)
[2018-05-05] MEDS: Aspirin 325 mg Enteric Coated Tablet PO SCH (09:18)
[2018-05-05] MEDS: Carvedilol 6.25 MG TAB PO SCH ×2 (09:18→17:08)
[2018-05-05] MEDS: Insulin Regular 300 UNITS/3 ML VIAL SC SCH ×2 (09:19→17:09)
[2018-05-05] MEDS ORDERED: Digoxin 0.5 MG/2 ML AMP SLOW IVP SCH (10:00)
[2018-05-05] MEDS ORDERED: Metolazone 5 MG TAB PO SCH (10:00)
--- NOTE | 2018-05-05 13:18 | PDOC.PN ---
- Subjective Encounter Start Date: 05/05/18 Encounter Start Time: 07:20 Pt seen for followup re: NSTEMI. Reports soreness at surgical site. No fevers or chills. - Objective Resuscitation Status: Resuscitation Status FULL:Full Resuscitation MAR Reviewed: Yes Vital Signs & Weight: Vital Signs (12 hours) Temp Pulse Pulse Pulse Resp BP BP 05/05/18 12:48 89 82 134/65 132/60 05/05/18 11:38 98 F 84 16 05/05/18 10:26 80 05/05/18 07:39 98.2 F 78 18 05/05/18 06:34 78 20 05/05/18 03:31 98.7 F 74 16 BP Pulse Ox Pulse Ox Pulse Ox 05/05/18 12:48 94 L 92 L 05/05/18 11:38 121/62 96 05/05/18 10:26 05/05/18 07:39 110/54 L 98 05/05/18 06:34 98 05/05/18 03:31 109/68 95 Weight Admit Weight 369 lb Weight 322 lb 4.8 oz Most Recent Monitor Data Heart Rate from ECG 92 NIBP 106/76 NIBP BP-Mean 120 Respiration from ECG 15 SpO2 95 I&O: 05/04/18 05/05/18 05/06/18 06:59 06:59 06:59 Intake Total 1520 840 Output Total 2230 760 Balance -710 80 Result Diagrams: 05/02/18 06:40 05/05/18 05:56 Additional Labs: Accuchecks 05/05/18 05/05/18 05/04/18 11:03 05:59 20:31 POC Glucose 178 H 162 H 150 H 05/04/18 17:10 POC Glucose 186 H EKG Reviewed by me: Yes (Tele: NSR) Phys Exam - Physical Examination Morbid obesity HEENT: moist MMs Neck: supple Respiratory: clear to auscultation bilateral Cardiovascular: RRR Gastrointestinal: soft RLE drain Neurological: moves all 4 limbs Psychiatric: normal affect Dx/Plan (1) NSTEMI (non-ST elevated myocardial infarction) Code(s): I21.4 - NON-ST ELEVATION (NSTEMI) MYOCARDIAL INFARCTION Status: Acute Comment: secondary to 3-vessel CAD (2) 3-vessel CAD Status: Acute Comment: s/p CABG (3) S/P CABG x 4 Status: Acute Comment: CV surgery following (4) Diabetes type 2, controlled Code(s): E11.9 - TYPE 2 DIABETES MELLITUS WITHOUT COMPLICATIONS Status: Chronic Comment: reasonable control (5) Dyslipidemia Code(s): E78.5 - HYPERLIPIDEMIA, UNSPECIFIED Status: Chronic Comment: continue statin (6) HTN (hypertension) Code(s): I10 - ESSENTIAL (PRIMARY) HYPERTENSION Status: Chronic Comment: controlled - Plan plan discussed w/ family, PT/OT, out of bed/ambulate * . Review of Systems - Review of Systems Respiratory: negative: Cough, Shortness of Breath, SOB with Excertion, Pleuritic Pain, Wheezing Cardiovascular: negative: chest pain, palpitations, orthopnea, paroxysmal nocturnal dyspnea, edema, light headedness - Medications/Allergies Allergies/Adverse Reactions: Allergies Allergy/AdvReac Type Severity Reaction Status Date / Time codeine Allergy itching Verified 04/22/18 04:32 Medications: Current Medications Hydrocodone Bitart/Acetaminophen ([place] 5/325) 1 tab PO Q4H PRN PRN Reason: Moderate Pain (4-6) Last Admin: 05/05/18 00:07 Dose: 1 tab Hydrocodone Bitart/Acetaminophen ([place] 5/325) 2 tab PO Q4H PRN PRN Reason: Severe Pain (7-10) Last Admin: 05/05/18 09:18 Dose: 2 tab Al Hydroxide/Mg Hydroxide (Maalox) 30 ml PO Q4H PRN PRN Reason: Indigestion Albuterol/Ipratropium (Duoneb) 3 ml NEB TID-RT [facility] Last Admin: 05/05/18 06:34 Dose: 3 ml Artificial Tears (Tears Naturale) 0 drop EA EYE PRN PRN PRN Reason: Dry Eyes Aspirin (Ecotrin) 325 mg PO DAILY [facility] Last Admin: 05/05/18 09:18 Dose: 325 mg Atorvastatin Calcium (Lipitor) 20 mg PO HS [facility] Last Admin: 05/04/18 21:37 Dose: 20 mg Bisacodyl (Dulcolax) 10 mg PO Q12H PRN PRN Reason: Constipation Last Admin: 05/05/18 09:17 Dose: 10 mg Bisacodyl (Dulcolax) 10 mg [place] Q12H PRN PRN Reason: Constipation Brimonidine Tartrate (Alphagan 0.2% Ophth Soln) 1 drop EA EYE TID [facility] Last Admin: 05/05/18 09:16 Dose: 1 drop Carvedilol (Coreg) 6.25 mg PO BID-WM [facility] Last Admin: 05/05/18 09:18 Dose: 6.25 mg Cefdinir (Omnicef) 300 mg PO BID [facility] Stop: 05/07/18 21:01 Last Admin: 05/05/18 09:17 Dose: 300 mg Dextrose/Water (Dextrose 50%) 25 gm SLOW IVP PRN PRN PRN Reason: PER HYPOGLYCEMIC PROTOCOL Diphenhydramine HCl (Benadryl) 25 mg PO Q6H PRN PRN Reason: Itching & Insomnia or Jas Simone Docusate Sodium (Colace) 100 mg PO BID [facility] Last Admin: 05/05/18 09:16 Dose: 100 mg Dorzolamide/Timolol (Cosopt 2-0.5% Ophth Soln) 1 drop EA EYE TID [facility] Last Admin: 05/05/18 09:16 Dose: 1 drp Enoxaparin Sodium (Lovenox) 60 mg SC 0900,2100 [facility] Last Admin: 05/05/18 09:16 Dose: 60 mg Famotidine (Pepcid) 20 mg PO Q12HR [facility] Last Admin: 05/05/18 09:18 Dose: 20 mg Furosemide (Lasix) 40 mg PO 0900,1400 [facility] Glucagon (Glucagon) 1 mg SC PRN PRN PRN Reason: PER HYPOGLYCEMIC PROTOCOL Guaifenesin/Dextromethorphan (Robitussin Dm) 15 ml PO Q4H PRN PRN Reason: Cough Hydralazine HCl (Apresoline) 10 mg SLOW IVP Q6H PRN PRN Reason: To Maintain SBP< 140mmHG Dextrose/Water (D5w) 1,000 mls @ 0 mls/hr IV INF PRN PRN Reason: PRN HYPOGLYCEMIC PROTOCOL Insulin Human Regular (Humulin R) 0 units SC .CUSTOM SLIDING SCAL PRN; Protocol PRN Reason: .CUSTOM SLIDING SCALE Last Admin: 05/03/18 11:29 Dose: 5 unit Insulin Human Regular (Humulin R) 12 units SC 0800,1700 [facility] Last Admin: 05/05/18 09:19 Dose: 12 unit Lisinopril (Zestril) 2.5 mg PO DAILY [facility] Last Admin: 05/05/18 09:16 Dose: 2.5 mg Metformin HCl (Glucophage) 850 mg PO BID-WM [facility] Last Admin: 05/05/18 09:17 Dose: 850 mg Mineral Oil (Fleet Mineral Oil) 133 ml [place] DAILYPRN PRN PRN Reason: Constipation Nitroglycerin (Nitrostat) 0.4 mg SL Q5MIN PRN PRN Reason: Chest Pain Ondansetron HCl (Zofran) 4 mg IVP Q6H PRN PRN Reason: Nausea/Vomiting Last Admin: 04/27/18 14:18 Dose: 4 mg Potassium Chloride (K-Dur) 40 meq PO ONE [facility] Sodium Chloride (Flush - Normal Saline) 10 ml IVF Q12HR [facility] Last Admin: 05/05/18 09:16 Dose: 10 ml Zolpidem Tartrate (Ambien) 5 mg PO HSPRN PRN PRN Reason: Insomnia Last Admin: 05/05/18 00:07 Dose: 5 mg
[2018-05-05] MEDS ORDERED: Potassium Chloride 20 MEQ TAB PO SCH (13:30)
[2018-05-05] MEDS: Furosemide 40 MG TAB PO SCH (13:57)
[2018-05-05] MEDS: Atorvastatin Calcium 20 MG TAB PO SCH (20:03)
[2018-05-06] MEDS: Insulin Regular 300 UNITS/3 ML VIAL SC SCH ×2 (07:55→16:57)
[2018-05-06] MEDS: Brimonidine Tartrate 0.2% Ophth Soln 5 ml Bottle EA EYE SCH ×3 (07:55→22:11)
[2018-05-06] MEDS: Enoxaparin Sodium 60 MG/0.6 ML SYRINGE SC SCH ×2 (07:56→22:09)
[2018-05-06] MEDS: DorzolamidE/Timolol 2%/0.5% Ophth Soln 10 ml Bottle EA EYE SCH ×3 (07:56→22:10)
[2018-05-06] MEDS: Furosemide 40 MG TAB PO SCH ×2 (07:57→13:37)
[2018-05-06] MEDS: Docusate 100 MG CAP PO SCH ×2 (07:57→22:15)
[2018-05-06] MEDS: Cefdinir 300 MG CAP PO SCH ×2 (07:57→22:15)
[2018-05-06] MEDS: metFORMIN 850 MG TAB PO SCH ×2 (07:57→16:58)
[2018-05-06] MEDS: Carvedilol 6.25 MG TAB PO SCH ×2 (07:57→18:08)
[2018-05-06] MEDS: Famotidine 20 MG TAB PO SCH ×2 (07:57→22:15)
[2018-05-06] MEDS: Aspirin 325 mg Enteric Coated Tablet PO SCH (07:58)
[2018-05-06] MEDS: Lisinopril 2.5 MG TAB PO SCH (09:34)
[2018-05-06] MEDS: Bisacodyl 5 MG TAB PO PRN (09:34)
[2018-05-06] MEDS: HYDROcodone/Acetaminophen 5/325 mg Tablet PO PRN ×2 (09:35→22:04)
--- NOTE | 2018-05-06 09:59 | PRG ---
DATE OF SERVICE: 05/06/2018 This morning he is awake, alert, responsive. No shortness of breath. PHYSICAL EXAMINATION: VITAL SIGNS: Temperature is 98, blood pressure 98/57, respiration rate 18, sats are 99 on room air. CHEST: No wheezing or crackles. CARDIAC: Normal S1, S2, no gallops. ABDOMEN: Soft, no masses. IMPRESSION: 1. Morbid obesity, probably sleep apnea. 2. Status post coronary artery bypass graft. DISPOSITION: As per Surgery. PT and supportive care.
[2018-05-06] MEDS: Insulin Regular 300 UNITS/3 ML VIAL SC PRN (11:45)
[2018-05-06 12:16] VITALS: BMI 44.9
--- NOTE | 2018-05-06 15:13 | PDOC.PN ---
- Subjective Encounter Start Date: 05/06/18 Encounter Start Time: 07:20 Pt seen for followup re: NSTEMI. Denies chest pain or shortness of breath. c/ o constipation. - Objective Resuscitation Status: Resuscitation Status FULL:Full Resuscitation MAR Reviewed: Yes Vital Signs & Weight: Vital Signs (12 hours) Temp Pulse Pulse Pulse Resp BP BP 05/06/18 13:02 85 82 119/61 05/06/18 12:36 84 16 05/06/18 11:44 98.2 F 71 16 05/06/18 09:34 82 117/71 05/06/18 09:08 80 85 117/71 05/06/18 07:57 98/57 L 05/06/18 07:46 98.4 F 74 16 05/06/18 06:45 75 16 05/06/18 04:00 98.9 F 75 20 BP BP BP Pulse Ox Pulse Ox Pulse Ox 05/06/18 13:02 100/55 L 96 95 05/06/18 12:36 94 L 05/06/18 11:44 100/58 L 96 05/06/18 09:34 05/06/18 09:08 93/53 L 96 99 05/06/18 07:57 05/06/18 07:46 98/57 L 99 05/06/18 06:45 95 05/06/18 04:00 99/58 L 93 L Weight Admit Weight 369 lb Weight 322 lb 4.8 oz Most Recent Monitor Data Heart Rate from ECG 92 NIBP 106/76 NIBP BP-Mean 120 Respiration from ECG 15 SpO2 95 I&O: 05/05/18 05/06/18 05/07/18 06:59 06:59 06:59 Intake Total 840 1200 240 Output Total 760 1485 Balance 80 -285 240 Result Diagrams: 05/02/18 06:40 05/05/18 05:56 Additional Labs: Accuchecks 05/06/18 05/06/18 05/05/18 11:03 05:21 20:53 POC Glucose 200 H 143 H 148 H 05/05/18 04/26/18 04/26/18 16:45 16:02 15:14 POC Glucose 135 H 127 H 161 H 04/26/18 04/26/18 04/26/18 14:21 13:29 12:35 POC Glucose 171 H 162 H 140 H 04/26/18 04/26/18 11:41 08:24 POC Glucose 150 H 200 H EKG Reviewed by me: Yes (Tele: NSR) Phys Exam - Physical Examination Morbid obesity HEENT: sclera anicteric Neck: full ROM Respiratory: clear to auscultation bilateral Cardiovascular: RRR Gastrointestinal: soft Neurological: moves all 4 limbs Psychiatric: normal affect Dx/Plan (1) NSTEMI (non-ST elevated myocardial infarction) Code(s): I21.4 - NON-ST ELEVATION (NSTEMI) MYOCARDIAL INFARCTION Status: Acute Comment: due to 3 vessel CAD (2) 3-vessel CAD Status: Acute Comment: s/p CABG (3) S/P CABG x 4 Status: Acute Comment: CV surgery following (4) Constipation Code(s): K59.00 - CONSTIPATION, UNSPECIFIED Status: Acute Comment: on PRN Dulcolax, try magnesium citrate (5) Diabetes type 2, controlled Code(s): E11.9 - TYPE 2 DIABETES MELLITUS WITHOUT COMPLICATIONS Status: Chronic Comment: reasonable control (6) Dyslipidemia Code(s): E78.5 - HYPERLIPIDEMIA, UNSPECIFIED Status: Chronic Comment: on statin (7) HTN (hypertension) Code(s): I10 - ESSENTIAL (PRIMARY) HYPERTENSION Status: Chronic Comment: controlled - Plan * . Review of Systems - Review of Systems Respiratory: negative: Cough, Shortness of Breath, SOB with Excertion, Pleuritic Pain, Wheezing Cardiovascular: negative: chest pain, palpitations, orthopnea, paroxysmal nocturnal dyspnea, edema, light headedness Gastrointestinal: Constipation - Medications/Allergies Allergies/Adverse Reactions: Allergies Allergy/AdvReac Type Severity Reaction Status Date / Time codeine Allergy itching Verified 04/22/18 04:32 Medications: Current Medications Hydrocodone Bitart/Acetaminophen ([place] 5/325) 1 tab PO Q4H PRN PRN Reason: Moderate Pain (4-6) Last Admin: 05/06/18 09:35 Dose: 1 tab Hydrocodone Bitart/Acetaminophen ([place] 5/325) 2 tab PO Q4H PRN PRN Reason: Severe Pain (7-10) Last Admin: 05/05/18 09:18 Dose: 2 tab Al Hydroxide/Mg Hydroxide (Maalox) 30 ml PO Q4H PRN PRN Reason: Indigestion Albuterol/Ipratropium (Duoneb) 3 ml NEB TID-RT [facility] Last Admin: 05/06/18 12:36 Dose: 3 ml Artificial Tears (Tears Naturale) 0 drop EA EYE PRN PRN PRN Reason: Dry Eyes Aspirin (Ecotrin) 325 mg PO DAILY [facility] Last Admin: 05/06/18 07:58 Dose: 325 mg Atorvastatin Calcium (Lipitor) 20 mg PO HS [facility] Last Admin: 05/05/18 20:03 Dose: 20 mg Bisacodyl (Dulcolax) 10 mg PO Q12H PRN PRN Reason: Constipation Last Admin: 05/06/18 09:34 Dose: 10 mg Bisacodyl (Dulcolax) 10 mg [place] Q12H PRN PRN Reason: Constipation Brimonidine Tartrate (Alphagan 0.2% Ophth Soln) 1 drop EA EYE TID [facility] Last Admin: 05/06/18 07:55 Dose: 1 drop Carvedilol (Coreg) 6.25 mg PO BID-WM [facility] Last Admin: 05/06/18 07:57 Dose: 6.25 mg Cefdinir (Omnicef) 300 mg PO BID [facility] Stop: 05/07/18 21:01 Last Admin: 05/06/18 07:57 Dose: 300 mg Dextrose/Water (Dextrose 50%) 25 gm SLOW IVP PRN PRN PRN Reason: PER HYPOGLYCEMIC PROTOCOL Diphenhydramine HCl (Benadryl) 25 mg PO Q6H PRN PRN Reason: Itching & Insomnia or Jas Simone Docusate Sodium (Colace) 100 mg PO BID [facility] Last Admin: 05/06/18 07:57 Dose: 100 mg Dorzolamide/Timolol (Cosopt 2-0.5% Ophth Soln) 1 drop EA EYE TID [facility] Last Admin: 05/06/18 07:56 Dose: 1 drp Enoxaparin Sodium (Lovenox) 60 mg SC 0900,2100 [facility] Last Admin: 05/06/18 07:56 Dose: 60 mg Famotidine (Pepcid) 20 mg PO Q12HR [facility] Last Admin: 05/06/18 07:57 Dose: 20 mg Furosemide (Lasix) 40 mg PO 0900,1400 [facility] Last Admin: 05/06/18 13:37 Dose: 40 mg Glucagon (Glucagon) 1 mg SC PRN PRN PRN Reason: PER HYPOGLYCEMIC PROTOCOL Guaifenesin/Dextromethorphan (Robitussin Dm) 15 ml PO Q4H PRN PRN Reason: Cough Hydralazine HCl (Apresoline) 10 mg SLOW IVP Q6H PRN PRN Reason: To Maintain SBP< 140mmHG Dextrose/Water (D5w) 1,000 mls @ 0 mls/hr IV INF PRN PRN Reason: PRN HYPOGLYCEMIC PROTOCOL Insulin Human Regular (Humulin R) 0 units SC .CUSTOM SLIDING SCAL PRN; Protocol PRN Reason: .CUSTOM SLIDING SCALE Last Admin: 05/06/18 11:45 Dose: 3 unit Insulin Human Regular (Humulin R) 12 units SC 0800,1700 [facility] Last Admin: 05/06/18 07:55 Dose: 12 unit Lisinopril (Zestril) 2.5 mg PO DAILY [facility] Last Admin: 05/06/18 09:34 Dose: 2.5 mg Magnesium Citrate (Citrate Of Magnesia 300 Ml Bot) 300 ml PO NOW [facility] Stop: 05/06/18 17:15 Metformin HCl (Glucophage) 850 mg PO BID-[facility] Last Admin: 05/06/18 07:57 Dose: 850 mg Mineral Oil (Fleet Mineral Oil) 133 ml [place] DAILYPRN PRN PRN Reason: Constipation Nitroglycerin (Nitrostat) 0.4 mg SL Q5MIN PRN PRN Reason: Chest Pain Ondansetron HCl (Zofran) 4 mg IVP Q6H PRN PRN Reason: Nausea/Vomiting Last Admin: 04/27/18 14:18 Dose: 4 mg Sodium Chloride (Flush - Normal Saline) 10 ml IVF Q12HR [facility] Last Admin: 05/06/18 07:58 Dose: 10 ml Zolpidem Tartrate (Ambien) 5 mg PO HSPRN PRN PRN Reason: Insomnia Last Admin: 05/05/18 00:07 Dose: 5 mg
[2018-05-06] MEDS ORDERED: Magnesium Citrate 300 ML BOT PO SCH (15:15)
--- NOTE | 2018-05-06 21:16 | PDOC.CTH ---
Cardiology Progress Note - Objective Vital Signs Temp Pulse Pulse Pulse Resp BP BP 05/06/18 19:54 83 16 05/06/18 18:08 104/68 05/06/18 17:49 84 05/06/18 16:55 98.8 F 84 16 05/06/18 13:02 85 82 119/61 05/06/18 12:36 84 16 05/06/18 11:44 98.2 F 71 16 05/06/18 09:34 82 117/71 BP BP BP Pulse Ox Pulse Ox Pulse Ox 05/06/18 19:54 95 05/06/18 18:08 05/06/18 17:49 104/68 05/06/18 16:55 84/54 L 93 L 05/06/18 13:02 100/55 L 96 95 05/06/18 12:36 94 L 05/06/18 11:44 100/58 L 96 05/06/18 09:34 Admit Weight 369 lb Weight 322 lb 4.8 oz 05/05/18 05/06/18 05/07/18 06:59 06:59 06:59 Intake Total 840 1200 1260 Output Total 760 1485 1105 Balance 80 -285 155 - Physical Examination General/Neuro: alert & oriented x3 Neck: carotid US brisk Lungs: CTA Heart: RRR Abdomen: soft Extremities: other: (right lower lwg with 1-2+ edema) - Labs Result Diagrams: 05/02/18 06:40 05/05/18 05:56 Troponin/CKMB CK-MB (CK-2) 2.9 ng/mL (0-6.6) 04/22/18 00:57 Troponin I 0.165 ng/mL (< 0.028) H 04/22/18 07:23 - Assessment/Plan 1. CAD with s/p CABG x4 on 04/26/18 - stable with ASA 325mg qd, Lipitor 20mg qd and Coreg 6.25mg BID. 2. HTN - stable; Will start Lisinopril 2.5mg qd for hx of DM and diastolic dysfunction. Cont. to monitor 4. CKD - stable 5. DM type 2 - managed by PCP 6. Hyperlipidemia - on Statin 7. Morbid obesity - weight management education given to the pt. 8. Peripheral neuropathy - stable 9. Post-Op Anemia - stable. MAR reviewed.
[2018-05-06] MEDS: Atorvastatin Calcium 20 MG TAB PO SCH (22:15)
[2018-05-07 08:15] VITALS: TEMP 98.7
[2018-05-07] MEDS: Furosemide 40 MG TAB PO SCH (08:17)
[2018-05-07] MEDS: Cefdinir 300 MG CAP PO SCH (08:17)
[2018-05-07] MEDS: Famotidine 20 MG TAB PO SCH (08:17)
[2018-05-07] MEDS: Docusate 100 MG CAP PO SCH (08:17)
[2018-05-07] MEDS: Aspirin 325 mg Enteric Coated Tablet PO SCH (08:17)
[2018-05-07] MEDS: metFORMIN 850 MG TAB PO SCH (08:17)
[2018-05-07] MEDS: Carvedilol 6.25 MG TAB PO SCH (08:26)
[2018-05-07] MEDS: Insulin Regular 300 UNITS/3 ML VIAL SC SCH (08:27)
[2018-05-07] MEDS: Brimonidine Tartrate 0.2% Ophth Soln 5 ml Bottle EA EYE SCH (08:27)
[2018-05-07] MEDS: DorzolamidE/Timolol 2%/0.5% Ophth Soln 10 ml Bottle EA EYE SCH (08:29)
[2018-05-07] MEDS: Enoxaparin Sodium 60 MG/0.6 ML SYRINGE SC SCH (08:30)
[2018-05-07] MEDS: Lisinopril 2.5 MG TAB PO SCH (08:32)
[2018-05-07 09:40] LABS: #Basophils 0.1 thou/uL (0.0-0.2); #Eosinphils 0.5 thou/uL (0.0-0.7); #Lymphocytes 1.9 thou/uL (1.20-3.40); #Monocytes 0.7 thou/uL (0.11-0.59); #Neutrophils 6.4 thou/uL (1.40-6.50); %Basophils 0.6 % (0.0-1.0); %Eosinophils 5.5 % (0.0-10.0); %Lymphocytes 20.1 % (21.0-51.0); %Neutrophils 66.7 % (42.0-75.0); Hemoglobin 10.5 g/dL (14.0-18.0); Mean Corpuscular HGB CONC 31.6 g/dL (32.0-36.0); Mean Corpuscular Hemoglobin 26.5 pg (27.0-31.0); Mean Corpuscular Volume 83.8 fL (78.0-98.0); Mean Platelet Volume 8.7 fL (7.4-10.4); Platelet Count 362 thou/uL (130-400); RBC Distribution Width 14.1 % (11.5-14.5); Red Blood Cell (RBC) Count 3.97 mill/uL (4.70-6.10); White Blood Cell (WBC) Count 9.7 thou/uL (4.8-10.8)
[2018-05-07 10:01] LABS: Anion Gap 15 mmol/L (10-20); BUN (Urea Nitrogen) 20 mg/dL (8.4-25.7); Calc. Creatinine Clearance 114 mL/min (70-130); Calcium 9.3 mg/dL (7.8-10.44); Carbon Dioxide 27 mmol/L (23-31); Chloride 95 mmol/L (98-107); Estimated GFR-MDRD 65; Glucose 187 mg/dL (80-115); Potassium 3.9 mmol/L (3.5-5.1); Sodium 133 mmol/L (136-145)
--- NOTE | 2018-05-07 13:13 | DIS ---
DATE OF ADMISSION: 04/24/2018 DATE OF DISCHARGE: 05/07/2018 PRINCIPAL DIAGNOSES: Coronary artery disease, non-ST elevation myocardial infarction. SECONDARY DIAGNOSES: Hypertension, diabetes mellitus, morbid obesity, venous stasis disease, urinary tract infection. PROCEDURES PERFORMED: Cardiac catheterization on 04/24/2018. PROCEDURES: Coronary artery bypass grafting x4 with left internal mammary artery to the LAD, reverse greater saphenous vein graft from the aorta to the diagonal, the obtuse marginal and the posterolate ral branch of the RCA and ligation of left atrial appendage on 04/26/2018. HISTORY OF PRESENT ILLNESS AND HOSPITAL COURSE: The patient is a 62-year-old man who presented with a stuttering pattern of burning right-sided chest pain over the course of several hours. His EKG was nonspecific. His troponins were mildly abnormal with a very small rise and fall and the stress test ing showed reversible perfusion defect in the anteroseptal region. 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 He had normal LV function. On admission, his creatinine was 1.5, but normalized. Susanna madrid was taken to the operating room on the and underwent revascularization. At the time of surger y, his leg incisions were reopened, drained a large amount of bloody fluid that accumulated, no speci fic point of bleeding could be identified. The wounds were reclosed over a 19-[place] drain. Postope ratively, there were considerable problems with adequacy of pain control and mobilization and he had persistently high outputs from his leg drain. He has had some low-grade fever and a urinalysis was s uggestive of urinary tract infection and urine culture grew 75-100,000 colony-forming units per mL of Klebsiella pneumoniae. He was started on Omnicef and had no more fever. His level of activity very gradually improved, but over the last 4 days, his [place] drain is persistently drained in the 150 mL a day range. His has been taught how to take care of it and he is now being sent home. Because of persistently elevated blood sugars, his metformin has been increased from 500 mg twice a day to 850 mg twice a day, Coreg 6.25 mg b.i.d. has been added to his regimen. His Norvasc is currtish tljayme being held as his Diamox once a day, Lasix has been increased to twice a day. I will plan on see ing him in the office in roughly a week's time.
[2018-05-07 14:28] VITALS: BP 152/84
[2018-05-08] MEDS ORDERED: Furosemide 40 MG TAB PO SCH (07:30)
--- NOTE | 2018-05-08 07:57 | ADD-DIS ---
DATE OF ADMISSION: 04/22/2018 DATE OF DISCHARGE: 05/07/2018 Please note that a separate discharge summary was dictated by Dr. Monaco on the day of discharge . This note is to add other details including discharge medications. PRIMARY CARE PROVIDER: Kalpana Barbour M.D. DISCHARGE DIAGNOSES: 1. Non-ST elevation myocardial infarction. 2. Coronary artery disease. 3. Status post coronary artery bypass graft during this hospitalization. 4. Klebsiella pneumonia, urinary tract infection, organism intermediate sensitivity to nitrofurantoi n, but sensitive to other antibiotics. CONSULTATIONS DURING THIS HOSPITALIZATION: Cardiology, Dr. Melo; Cardiovascular Surgery, Dr. Gilda kramer; Pulmonology, Dr. Velasquez. CONDITION OF PATIENT ON THE DAY OF DISCHARGE: Stable. I assessed Mr. Valdez on the day of discharge . He denies any chest pain or shortness of breath. PHYSICAL EXAMINATION: VITAL SIGNS: Stable. S1 and S2 are heard, regular. LUNGS: Clear to auscultation bilaterally. DISCHARGE MEDICATIONS: Allopurinol 300 mg daily, aspirin 81 mg daily, brimonidine eyedrops 1 drop to each eye 3 times a day, dorzolamide/timolol eyedrops 1 drop to each eye 3 times a day, fenofibrate 1 60 mg at bedtime, gabapentin 300 mg 2 times a day, Humulin R 12 units 2 times a day, latanoprost eyed rops 1 drop to each eye at bedtime, pravastatin 80 mg at bedtime, Coreg 6.25 mg 2 times a day, cefdin ir 300 mg 2 times a day, 7 more doses, Lasix 40 mg daily, metformin 850 mg 2 times a day, quinapril 2 0 mg daily, and [place] 5/325 one tablet every 4 hours as needed. HOSPITAL COURSE: Mr. Valdez is a pleasant 62-year-old gentleman who was admitted to [facility] on 04/22/2018 for chest pain. Please refer to Dr. Vidal's history and physical n ote dated 04/22/2018 for further details. He had an abnormal stress test, followed by cardiac cathet erization which showed 3-vessel coronary artery disease. He underwent revascularization on 8. During the postoperative period, he had high outputs from leg drain. He also had fever, and was foun d to have urinary tract infection. He was treated with Omnicef with improvement. He has been discha rged by Cardiovascular Surgery Service and will follow up with Cardiovascular Surgery as outpatient. On the day of discharge, he has white count of 9,700, hemoglobin 10.5, platelet count 362,000. Sodiu m 133, potassium 3.9, and creatinine 1.34. Many thanks for allowing me to participate in your patient's care. Please feel free to contact me wi th any questions or concerns. DISCHARGE DESTINATION: Home. TOTAL AMOUNT OF TIME SPENT COORDINATING THIS DISCHARGE: 18 minutes. NOTE: It is recommended that Mr. Valdez's creatinine be rechecked when he is seen by his primary car e provider on 05/10/2018.
== END 2018-05-07 12:45 | disposition home or self-care (01) | DRG 234 ==
LOC: ERS 00:44 → 2SW 02:08 → OBSVTOIN 04-24 11:27 → 2NO 04-24 18:00 → CCU 04-26 08:27 → 2NO 04-30 13:16
PROVIDERS: ADMIT Hospitalist; ATTEND Hospitalist
PROC: 4A023N7 Measurement of Cardiac Sampling and Pressure, Left Heart, Percutaneous Approach (ICD-10-PCS; 2018-04-24)
PROC: B2111ZZ Fluoroscopy of Multiple Coronary Arteries using Low Osmolar Contrast (ICD-10-PCS; 2018-04-24)
PROC: B2151ZZ Fluoroscopy of Left Heart using Low Osmolar Contrast (ICD-10-PCS; 2018-04-24)
PROC: 02100Z9 Bypass Coronary Artery, One Artery from Left Internal Mammary, Open Approach (ICD-10-PCS; principal; 2018-04-26)
PROC: 0212093 Bypass Coronary Artery, Three Arteries from Coronary Artery with Autologous Venous Tissue, Open Approach (ICD-10-PCS; 2018-04-26)
PROC: 30233N1 Transfusion of Nonautologous Red Blood Cells into Peripheral Vein, Percutaneous Approach (ICD-10-PCS; 2018-04-28)
DX: I21.4 Non-ST elevation (NSTEMI) myocardial infarction (principal); Z68.43 Body mass index [BMI] 50.0-59.9, adult; N39.0 Urinary tract infection, site not specified; J98.11 Atelectasis; D62 Acute posthemorrhagic anemia; E66.01 Morbid (severe) obesity due to excess calories; I25.10 Atherosclerotic heart disease of native coronary artery without angina pectoris; E78.5 Hyperlipidemia, unspecified; N18.3 Chronic kidney disease, stage 3 (moderate); I12.9 Hypertensive chronic kidney disease with stage 1 through stage 4 chronic kidney disease, or unspecified chronic kidney disease; E11.22 Type 2 diabetes mellitus with diabetic chronic kidney disease; F41.9 Anxiety disorder, unspecified; F32.9 Major depressive disorder, single episode, unspecified; M06.9 Rheumatoid arthritis, unspecified; M19.90 Unspecified osteoarthritis, unspecified site; M10.9 Gout, unspecified; H40.9 Unspecified glaucoma; Z88.5 Allergy status to narcotic agent; Z79.899 Other long term (current) drug therapy; Z79.4 Long term (current) use of insulin; Z79.84 Long term (current) use of oral hypoglycemic drugs; G47.33 Obstructive sleep apnea (adult) (pediatric); B96.1 Klebsiella pneumoniae [K. pneumoniae] as the cause of diseases classified elsewhere; E11.40 Type 2 diabetes mellitus with diabetic neuropathy, unspecified; D69.1 Qualitative platelet defects; Z87.891 Personal history of nicotine dependence; K59.00 Constipation, unspecified; J40 Bronchitis, not specified as acute or chronic
CPT/HCPCS: 36415; 36416; 36430; 71045; 71046; 78452; 80048; 80053; 80061; 81001; 82550; 82553; 82805; 83036; 83880; 84484; 85025; 85610; 85730; 86850; 86900; 86901; 87070; 87077; 87086; 87186; 87205; 90471; 90686; 93005; 93010; 93017; 93306; 93458; 93798; 94002; 94003; 94150; 94640; 94760; 96372; A9500; C1769; G0008; G8978-GP-CM; G8979-GP-CK; J0131; J0360; J1160; J1642; J1644; J1650; J1815; J1940; J2001; J2150; J2250; J2270; J2405; J2440; J2704; J2720; J2785; J3010; J3370; J3475; J3480; J7050; J7608; J7611; J7620; P9016; P9045; S0017; S0028

== ENCOUNTER 2019-06-11 04:05 | Inpatient (IN) | payer OTHER, MEDICARE ==
[2019-06-11] MEDS ORDERED: Iopamidol-370 76% 500 ML 1 ML ONE (11:37)
[2019-06-11] MEDS ORDERED: MD-Gastroview 120 ML BOT ONE (11:58)
[2019-06-11] MEDS ORDERED: Sodium Chloride 0.9% (PF) 10 ML VIAL FS PRN (12:58)
[2019-06-11] MEDS ORDERED: Ondansetron ODT 4 MG TAB PO PRN ×2 (13:04→14:01)
[2019-06-11] MEDS ORDERED: Mag-Al 1200 mg/1200 mg/30 ML UDCUP PO PRN (13:04)
[2019-06-11] MEDS ORDERED: Acetaminophen 325 MG TAB PO PRN ×2 (13:04→14:01)
[2019-06-11 13:53] VITALS: BMI 43.7
--- NOTE | 2019-06-11 13:58 | CT ---
CT ABDOMEN AND PELVIS WITH IV CONTRAST: INDICATIONS: History of nausea and vomiting and left sided abdominal pain. COMPARISON: No comparisons are available. FINDINGS: ABDOMEN: The lung bases are clear. There is prominent circumferential wall thickening involving the e sophagus. There is mild fluid seen within the lower posterior mediastinum surrounding the distal esop hagus and a hiatal hernia. No definite free air is noted. There are some surgical clips seen within t he gastrohepatic ligament, which may reflect post surgical change of a prior attempt at a Orly fund oplication. The gallbladder is surgically absent. There is mild fatty infiltration of the liver. The pancreas and adrenal glands are normal appearing. There is a tiny stone within the lower pole of the left kidney, measuring 5 mm. No hydronephrosis is demonstrated. No free fluid or enlarged lymph nodes are noted. PELVIS: There is a moderate amount of retained stool within the colon. The small bowel is of normal c aliber. There is a fat-containing anterior wall hernia on image 59 of series 2. There is a small fat- containing umbilical hernia. There is a fat-containing left inguinal hernia. The prostate, bladder, r ectum and perirectal soft tissues are unremarkable appearing. No free fluid is evident. There are mild calcifications involving the abdominopelvic vasculature. There is scattered degenerative and osteoarthritic change. No definite acute osseous abnormality is e vident. IMPRESSION: 1. Prominent wall thickening of the distal esophagus with some mild fluid in the lower mediastinum, a djacent to the distal esophagus, and a small hiatal hernia is suspicious for possible esophageal tear . A single contrast Gastrografin and barium esophagram is recommended to evaluate for possible full e sophageal tear. Findings were discussed with Dr. Grove at 0653 hours. 2. Post surgical change possibly related to a prior failed Orly fundoplication and cholecystectomy. 3. Moderate amount of retained stool within the colon. 4. Left nephrolithiasis. 5. Fat containing anterior abdominal wall and periumbilical and left inguinal hernias. POS: OFF
[2019-06-11] MEDS ORDERED: Dextrose 50% Abboject 50 ML SYRINGE SLOW IVP PRN (14:01)
[2019-06-11] MEDS ORDERED: HumaLOG 300 UNITS/3 ML VIAL SC PRN (14:01)
[2019-06-11] MEDS ORDERED: Zolpidem Tartrate 5 MG TAB PO PRN (14:01)
[2019-06-11] MEDS ORDERED: Dextrose 5% in Water 1,000 ML IV PRN (14:01)
--- NOTE | 2019-06-11 14:20 | RAD ---
ESOPHAGRAM: HISTORY: Chest pain. Esophagitis. Abnormal CAT scan. Possible leak. FINDINGS: Single-column contrast exam was performed with Gastrografin. A very small sliding hiatal hernia. No s ignificant reflux was demonstrated. There were prominent, nonpropulsive, tertiary type contractions o f the esophagus. No contrast was seen to extend outside the esophagus. No contrast was seen to extend esophagus. IMPRESSION: Prominent esophageal spasm. No evidence of leak. POS: [facility]
--- NOTE | 2019-06-11 14:27 | HP ---
PRIMARY CARE PROVIDER: Dr. Sherman. HISTORY OF PRESENT ILLNESS: The patient was referred to the [facility] by [facility] for esophagitis. The patient presented with acute onset of nausea and vomiting. No blood or coffee-grounds emesis. He had chest pain with it, some abdominal pain, headache. PAST MEDICAL HISTORY: Pertinent for coronary artery disease, diabetes mellitus type 2, insulin dependent, hypertension, gout, elevated cholesterol, glaucoma. CURRENT MEDICATIONS: 1. Coreg 6.25 mg twice a day. 2. Metformin 850 mg twice a day. 3. Quinapril 40 mg a day. 4. Allopurinol 300 mg a day. 5. Lasix 40 mg twice a day. 6. Aspirin 81 mg a day. 7. Fenofibrate 160 mg a day. 8. Pravachol 80 mg a day. 9. Humulin R 7 units q.12 hours. ALLERGIES: CODEINE CAUSES AN ITCH. PAST SURGICAL HISTORY: Coronary artery bypass graft in May 2018, cholecystectomy 10 to 15 years ago. FAMILY HISTORY: No coronary artery disease, diabetes that he is aware of. He reports that he has no real knowledge of family history. SOCIAL HISTORY: . Full code status. , next of kin, surrogate decision maker. Cigarettes negative. Alcohol negative. REVIEW OF SYSTEMS: CONSTITUTIONAL: Headache with present illness. Otherwise, no dizziness fainting. EYES: No double vision, blurred vision, flashing lights. EAR, NOSE, AND THROAT: No ear pain or drainage. No nasal bleeding. No trouble swallowing. CARDIAC: He has a sharp epigastric pain with the present illness. No orthopnea or paroxysmal nocturnal dyspnea. RESPIRATION: He has had a cough. No asthma or wheezing. GASTROINTESTINAL: He has had some heartburn symptoms, especially at night with coughing at night in the past. GENITOURINARY: No hematuria or dysuria. MUSCULOSKELETAL: No pain or swelling in his arms or legs. NEUROLOGIC: No strokes, seizures, or focal weakness. PSYCHIATRIC: No anxiety or depression. SKIN: No bruising, bleeding or rashes. HEME/LYMPH: No tender or swollen lymph nodes in axilla, inguinal or cervical area. PHYSICAL EXAMINATION: GENERAL: He is alert, cooperative, pleasant man. VITAL SIGNS: Temperature 98.2, pulse 81, respirations 18, room air saturation 97%, blood pressure 133/82. HEAD, EYES, EARS, NOSE, AND THROAT: Revealed pupils are equal, round, and reactive to light. Extraocular movements are intact. Sclerae are white. Tympanic membranes clear. Nose clear. Oral mucous membranes are wet. Dental hygiene is good. NECK: Supple without jugular venous distention, adenopathy or thyromegaly. CHEST: Clear to auscultation and percussion. HEART: Regular rate and rhythm. First and second heart sounds are clear. There are no murmurs or gallops. ABDOMEN: Minimally tender. Bowel sounds were present. There is no hepatosplenomegaly, masses, or bruits. EXTREMITIES: Reveal 1+ edema with no cyanosis or clubbing. PULSES: Carotid, radial, femoral and dorsalis pedis pulses intact. SKIN: Warm and dry without bruises or rash. HEME/LYMPH: No tender or swollen lymph nodes in axilla, inguinal, or cervical area. NEUROLOGIC: Cranial nerves 2 through 12 are intact. Deep tendon reflexes symmetric. Moves all extremities. I have been told there is an EKG. I am searching for it. He has not had a chest x-ray. He has had a barium swallow and a CT of his chest which suggest esophagitis. Laboratory has been verbally referred to me, but there is nothing in [place]. ADMITTING DIAGNOSES: 1. Nausea and vomiting. 2. Esophagitis. 3. Diabetes mellitus type 2. 4. Hypertension. 5. Coronary artery disease. 6. Elevated cholesterol. PLAN: Patient has been placed in the hospital on a clear liquid diet. He is receiving Protonix 40 mg IV q.12 hours. Accu-Chek sliding scale have been ordered. Selected home medicines have been ordered. GI consult for possible EGD has been ordered. Job ID: [id number]
[2019-06-11 14:37] LABS: %Neutrophils 56.9 % (42.0-75.0); Hemoglobin 12.2 g/dL (14.0-18.0); Mean Corpuscular HGB CONC 31.7 g/dL (32.0-36.0); Mean Corpuscular Hemoglobin 26.6 pg (27.0-31.0); Mean Corpuscular Volume 83.8 fL (78.0-98.0); Mean Platelet Volume 9.6 fL (7.4-10.4); Platelet Count 170 thou/uL (130-400); RBC Distribution Width 14.1 % (11.5-14.5); Red Blood Cell (RBC) Count 4.57 mill/uL (4.70-6.10); White Blood Cell (WBC) Count 7.8 thou/uL (4.8-10.8)
[2019-06-11 14:38] LABS: #Basophils 0.1 thou/uL (0.0-0.2); #Eosinphils 0.6 thou/uL (0.0-0.7); #Lymphocytes 2.1 thou/uL (1.20-3.40); #Monocytes 0.6 thou/uL (0.11-0.59); #Neutrophils 4.4 thou/uL (1.40-6.50); %Basophils 1.1 % (0.0-1.0); %Eosinophils 7.4 % (0.0-10.0); %Lymphocytes 26.9 % (21.0-51.0); %Monocytes 7.7 % (0.0-10.0)
[2019-06-11] MEDS: Furosemide 40 MG TAB PO SCH (17:03)
--- NOTE | 2019-06-11 17:19 | CON ---
DATE OF CONSULTATION: 06/11/2019 REASON FOR CONSULTATION: Chest pain and heartburn. HISTORY OF PRESENT ILLNESS: Mr. Valdez is a 64-year-old male, who woke up his usual time this morning around 3 a.m., and noted sudden onset of upper abdominal pain favoring the left side with subsequent dry heaving and regurgitation. He felt a burning sensation that travels from the upper abdomen up to his throat. He did not have much emesis. He also has had some nausea. According to his , he has had intermittent nausea and vomiting for the preceding 3 days following Thanksgiving. At that time, he did not have any abdominal pain. The patient denies any hematemesis or coffee-grounds emesis. His left upper quadrant pain has since resolved. The patient was seen in the ER, where initial CT performed demonstrated mural thickening of the distal esophagus with suggestion of fluid outside the esophagus. However, barium swallow using Gastrografin did not show any extravasation, only some tertiary contraction. Currently, the patient feels better. He denies having any antecedent reflux history except for occasional indigestion. He did not have any localizing pain or discomfort up until this admission. His bowel function has been irregular, but no significant change. There is no rectal bleeding, hematochezia, or melena. The patient does not recall ever having had a colonoscopy before. PAST MEDICAL HISTORY: 1. Coronary artery disease, status post bypass surgery in 04/2018. 2. Adult onset diabetes. 3. Hypertension. 4. Hyperlipidemia. 5. Osteoarthritis. 6. Status post cholecystectomy. 7. Status post tonsillectomy. SOCIAL HISTORY: The patient is , lives with his . He has no tobacco or alcohol usage. FAMILY HISTORY: Negative for any known GI problem, liver disease, or GI malignancy. ALLERGIES: CODEINE. HOME MEDICATIONS: Include: 1. Metformin. 2. Quinapril. 3. Pravastatin. 4. Insulin. 5. Lasix. 6. Fenofibrate. 7. Coreg. 8. Allopurinol. 9. Aspirin. 10. Eyedrops. REVIEW OF SYSTEMS: Ten-point review of systems did not show any other pertinent positives or negatives. No other reported symptoms. PHYSICAL EXAMINATION: VITAL SIGNS: Temperature 98.2, blood pressure 133/82, pulse of 81. GENERAL: He is alert, conversant, in no distress. HEENT: Shows anicteric sclerae. Oropharynx is clear. NECK: Very supple. CV: Shows normal S1 and S2. Regular rate and rhythm. CHEST: Shows breath sounds. There is no chest wall tenderness. There are multiple keloids from prior sternotomy. ABDOMEN: Protuberant, but soft. No elicited tenderness or organomegaly or not assessable secondary to size. He has active bowel sounds. No distention. No tympany. EXTREMITIES: Exam shows no edema. LABORATORY DATA: WBC 7.8, hemoglobin 12.2, hematocrit 38.3, platelet count of 170. Sodium 133, potassium 3.9, chloride 95, CO2 of 27, creatinine 1.34. CT showed lower esophageal wall thickening with suggestion of fluid collection adjacent to the esophagus and a small hiatal hernia. Barium swallow with Gastrografin showed tertiary contraction without any evidence of tear or leakage. ASSESSMENT: 1. A 64-year-old male with sudden onset of upper abdominal pain with burning sensation radiating up his chest with dry heavings that have since subsided. CT showed mural thickening of the distal esophagus suggestive of esophagitis. There was initial concern for esophageal tear, but Gastrografin swallow was negative. Currently, the patient is stable with normal vitals, and symptoms have much improved. 2. Coronary artery disease/diabetes/hypertension/hyperlipidemia. RECOMMENDATIONS: 1. We will proceed with diagnostic upper endoscopy tomorrow. 2. In the meantime, we will continue with pantoprazole 40 mg q.12. 3. Further recommendations to follow pending on the endoscopic finding. Job ID: [id number]
[2019-06-11 17:22] LABS: Lactic Acid 1.5 mmol/L (0.5-2.2)
[2019-06-11 17:49] LABS: Bilirubin Negative (Negative); Blood, Urine Negative (Negative); Glucose, Urine (Dipstick) Negative (Negative); Leukocyte Negative (Negative); Nitrite Negative (Negative); Protein, Urine (Dipstick) Negative (Neg-Trace)
[2019-06-11 17:50] LABS: Bacteria/HPF Rare-Few HPF (None Seen); Clarity Clear (Clear); RBC/HPF 0-3 HPF (0-3); Squamous Epithelial 0-3 HPF (0-3); WBC/HPF 0-3 HPF (0-3)
[2019-06-11] MEDS ORDERED: FLU VACC TS2019-20(65YR UP)/PF 180 MCG/0.5 ML SYRINGE IM ONE (18:05)
[2019-06-11 18:07] LABS: ALT (SGPT) 17 U/L (8-55); AST (SGOT) 19 U/L (5-34); Alkaline Phosphatase 51 U/L (40-110); Anion Gap 10 mmol/L (10-20); BUN (Urea Nitrogen) 16 mg/dL (8.4-25.7); Bilirubin, Total 0.6 mg/dL (0.2-1.2); Calc. Creatinine Clearance 123 mL/min (70-130); Calcium 9.5 mg/dL (7.8-10.44); Carbon Dioxide 35 mmol/L (23-31); Chloride 103 mmol/L (98-107); Estimated GFR-MDRD 74; Globulin 3.2 g/dL (2.4-3.5); Lipase 7 U/L (8-78); Potassium 3.7 mmol/L (3.5-5.1); Protein, Total 7.2 g/dL (5.8-8.1); Sodium 144 mmol/L (136-145)
[2019-06-11 18:09] LABS: Glucose 200 mg/dL (80-115)
[2019-06-11] MEDS: metFORMIN 850 MG TAB PO SCH (18:10)
[2019-06-11 18:20] LABS: CKMB 2.2 ng/mL (0-6.6); Troponin I 0.013 ng/mL (< 0.028)
[2019-06-11] MEDS: Pantoprazole 40 MG VIAL IVP SCH (20:24)
[2019-06-11] MEDS: Carvedilol 6.25 MG TAB PO SCH (20:25)
[2019-06-11] MEDS ORDERED: Atorvastatin Calcium 20 MG TAB PO SCH (21:00)
[2019-06-11] MEDS: Sodium Chloride 0.9% 1,000 ML IV SCH (21:10)
[2019-06-12] MEDS: Sodium Chloride 0.9% 1,000 ML IV SCH (00:45)
[2019-06-12] MEDS: Carvedilol 6.25 MG TAB PO SCH (04:59)
[2019-06-12] MEDS ORDERED: Ondansetron HCl/PF 4 MG/2 ML Vial IVP PRN (08:50)
[2019-06-12] MEDS ORDERED: Promethazine HCl 25 MG/ML VIAL SLOW IVP PRN (08:50)
[2019-06-12] MEDS ORDERED: Promethazine HCl 25 MG/ML VIAL IM PRN (08:50)
[2019-06-12] MEDS ORDERED: Meperidine HCl/PF 25 MG/ML VIAL SLOW IVP PRN (08:50)
[2019-06-12] MEDS ORDERED: Aspirin 81 mg Enteric Coated Tablet PO SCH (09:00)
[2019-06-12] MEDS ORDERED: Prevnar 13-Val Conj/PF 0.5 ML SYRINGE IM ONE (09:00)
[2019-06-12] MEDS ORDERED: FLU VACC TS2019-20(65YR UP)/PF 180 MCG/0.5 ML SYRINGE IM ONE (09:00)
[2019-06-12] MEDS ORDERED: Lisinopril 20 MG TAB PO SCH (09:00)
[2019-06-12] MEDS ORDERED: Pantoprazole 80 MG in Sodium Chloride 0.9% 100 ML IVP SCH (09:30)
[2019-06-12] MEDS: Furosemide 40 MG TAB PO SCH ×2 (10:32→13:22)
[2019-06-12] MEDS: Pantoprazole 40 MG VIAL IVP SCH (10:52)
[2019-06-12] MEDS: metFORMIN 850 MG TAB PO SCH (10:52)
--- NOTE | 2019-06-12 11:44 | OP ---
DATE OF PROCEDURE: 06/12/2019 PROCEDURE PERFORMED: Esophagogastroduodenoscopy with biopsy. PREOPERATIVE DIAGNOSES: Burning substernal pain and dysphagia and abnormal CT scan showing a fluid collection next to the esophagus and thickening at the distal esophagus. DESCRIPTION OF PROCEDURE: Informed consent was obtained from the patient. He was sedated with total intravenous anesthesia. The bite block was placed and the endoscope was advanced easily to the second portion of the duodenum and retroflexion was performed in the stomach. The esophagus appeared normal. GE junction appeared normal from the esophageal views. The stomach in retroflexed views revealed a paraesophageal hiatal hernia about 3 cm above the diaphragm. The gastric folds leading into the paraesophageal hernia were mildly thickened and erythematous. There was mild patchy gastritis in the antrum of the stomach. Biopsies were obtained to rule out Helicobacter pylori. The pylorus and first and second portions of the duodenum were normal. The air was suctioned from the stomach. The procedure was completed. IMPRESSION: 1. Paraesophageal hiatal hernia extending 3 cm above the diaphragmatic pinch. He is now presenting with dysphagia for the last few days and reflux symptoms for the last few years. Generally asymptomatic. Paraesophageal hiatal hernia will require surgical correction. 2. Mild antral gastritis. Biopsy to rule out Helicobacter pylori. 3. Otherwise normal esophagogastroduodenoscopy. The esophagus appeared normal throughout and the gastroesophageal junction appeared normal from the esophageal views. RECOMMENDATIONS: 1. Proton pump inhibitor daily. 2. If his symptoms do not completely resolve with proton pump inhibitor, then referral for surgical repair of the paraesophageal hiatal hernia will be the next step. 3. Soft diet. Job ID: [id number]
--- NOTE | 2019-06-12 12:12 | PDOC.HOSPP ---
- Subjective Encounter Date: 06/12/19 Encounter Time: 08:15 Subjective: Patient seen and examined. No new complaints. No overnight events - Objective Vital Signs & Weight: Vital Signs (12 hours) Temp Pulse Resp BP BP Pulse Ox 06/12/19 10:32 148/85 H 06/12/19 09:34 97 06/12/19 09:18 98.2 F 83 18 148/85 H 97 06/12/19 04:59 142/87 H 06/12/19 04:00 98.7 F 80 18 142/87 H 95 Weight Weight 313 lb 4 oz I&O: 06/11/19 06/12/19 06/13/19 06:59 06:59 06:59 Intake Total 240 200 Balance 240 200 Result Diagrams: 06/11/19 07:23 06/11/19 07:23 Additional Labs: Accuchecks 06/12/19 06/11/19 06/11/19 04:47 20:18 17:01 POC Glucose 229 H 189 H 168 H 06/11/19 11:48 POC Glucose 318 H Radiology Reviewed by me: Yes Hospitalist ROS - Review of Systems Eyes: denies: pain, vision change, conjunctivae inflammation, eyelid inflammation, redness, other ENT: denies: ear pain, ear discharge, nose pain, nose discharge, nose congestion , mouth pain, mouth swelling, throat pain, throat swelling, other Respiratory: denies: cough, dry, shortness of breath, hemoptysis, SOB with excertion, pleuritic pain, sputum, wheezing, other Cardiovascular: denies: chest pain, palpitations, orthopnea, paroxysmal noc. dyspnea, edema, light headedness, other Gastrointestinal: denies: nausea, vomiting, abdominal pain, diarrhea, constipation, melena, hematochezia, other Genitourinary: denies: dysuria, frequency, incontinence, hematuria, retention, other Musculoskeletal: denies: neck pain, shoulder pain, arm pain, back pain, hand pain, leg pain, foot pain, other Skin: denies: rash, lesions, belgica, bruising, other - Medication Medications: Active Medications Generic Name Dose Route Start Last Admin Trade Name Freq PRN Reason Stop Dose Admin Aspirin 81 mg 06/12/19 09:00 06/12/19 10:32 Ecotrin PO 81 mg DAILY TRAVIS Administration Atorvastatin Calcium 20 mg 06/11/19 21:00 06/11/19 20:25 Lipitor PO 20 mg HS TRAVIS Administration Carvedilol 6.25 mg 06/11/19 21:00 06/12/19 04:59 Coreg PO 6.25 mg BID TRAVIS Administration Furosemide 40 mg 06/11/19 14:00 06/12/19 10:32 Lasix PO 40 mg 0800,1400 TRAVIS Administration Sodium Chloride 1,000 mls @ 100 mls/hr 06/11/19 14:01 06/12/19 00:45 Normal Saline 0.9% IV Not Given .Q10H TRAVIS Lisinopril 40 mg 06/12/19 09:00 06/12/19 10:32 Zestril PO 40 mg DAILY TRAVIS Administration Metformin HCl 850 mg 06/11/19 17:00 06/12/19 10:52 Glucophage PO 850 mg BID-WM TRAVIS Administration - Exam General Appearance: NAD, awake alert Eye: PERRL, anicteric sclera ENT: normocephalic atraumatic, no oropharyngeal lesions Neck: supple, symmetric, no JVD, no thyromegaly Heart: RRR, no murmur, no gallops, no rubs, normal peripheral pulses Respiratory: CTAB, no wheezes, no rales, no ronchi Gastrointestinal: soft, non-tender, non-distended, normal bowel sounds Extremities: no cyanosis, no clubbing, no edema Skin: normal turgor, no lesions, no rashes Neurological: no focal deficits Musculoskeletal: normal tone, normal strength Psychiatric: normal affect, normal behavior Hosp A/P (1) Paraesophageal hernia Code(s): K44.9 - DIAPHRAGMATIC HERNIA WITHOUT OBSTRUCTION OR GANGRENE Status: Acute (2) Esophagitis Code(s): K20.9 - ESOPHAGITIS, UNSPECIFIED Status: Acute (3) GERD (gastroesophageal reflux disease) Code(s): K21.9 - GASTRO-ESOPHAGEAL REFLUX DISEASE WITHOUT ESOPHAGITIS Status: Acute Qualifiers: Esophagitis presence: with esophagitis Qualified Code(s): K21.0 - Gastro- esophageal reflux disease with esophagitis (4) 3-vessel CAD Status: Chronic (5) Diabetes type 2, controlled Code(s): E11.9 - TYPE 2 DIABETES MELLITUS WITHOUT COMPLICATIONS Status: Chronic Qualifiers: Diabetes mellitus assisted insulin use: with assisted use Diabetes mellitus complication status: with neurologic complications Diabetes mellitus complication detail: with polyneuropathy Qualified Code(s): E11.42 - Type 2 diabetes mellitus with diabetic polyneuropathy; Z79.4 - dedicated intermodal truck driver (current) use of insulin (6) Diabetic neuropathy Code(s): E11.40 - TYPE 2 DIABETES MELLITUS WITH DIABETIC NEUROPATHY, UNSP Status: Chronic Qualifiers: Diabetes mellitus type: type 2 (7) Dyslipidemia Code(s): E78.5 - HYPERLIPIDEMIA, UNSPECIFIED Status: Chronic (8) Glaucoma Code(s): H40.9 - UNSPECIFIED GLAUCOMA Status: Chronic (9) Gout Code(s): M10.9 - GOUT, UNSPECIFIED Status: Chronic (10) HTN (hypertension) Code(s): I10 - ESSENTIAL (PRIMARY) HYPERTENSION Status: Chronic - Plan old records reviewed/req, plan discussed w/ family 06/12/19 continue protonix soft diet advised to avoid NSAID GI recommendation noted
[2019-06-12 12:29] VITALS: BP 143/81; TEMP 98.9
[2019-06-12 12:49] LABS: #Eosinphils 0.3 thou/uL (0.0-0.7); #Monocytes 0.4 thou/uL (0.11-0.59); %Basophils 0.3 % (0.0-1.0); %Lymphocytes 17.4 % (21.0-51.0); %Neutrophils 70.3 % (42.0-75.0); Hemoglobin 12.5 g/dL (14.0-18.0); Mean Corpuscular Hemoglobin 26.1 pg (27.0-31.0); Mean Corpuscular Volume 84.1 fL (78.0-98.0); Mean Platelet Volume 9.3 fL (7.4-10.4); Platelet Count 155 thou/uL (130-400); RBC Distribution Width 14.1 % (11.5-14.5); White Blood Cell (WBC) Count 5.7 thou/uL (4.8-10.8)
[2019-06-12 13:06] LABS: Anion Gap 12 mmol/L (10-20); BUN (Urea Nitrogen) 11 mg/dL (8.4-25.7); Calc. Creatinine Clearance 124 mL/min (70-130); Carbon Dioxide 27 mmol/L (23-31); Chloride 105 mmol/L (98-107); Estimated GFR-MDRD 75; Glucose 241 mg/dL (80-115); Potassium 4.1 mmol/L (3.5-5.1); Sodium 140 mmol/L (136-145)
--- NOTE | 2019-06-12 14:02 | DIS ---
DATE OF ADMISSION: 06/11/2019 DATE OF DISCHARGE: 06/12/2019 PRIMARY CARE PHYSICIAN: Dr. Kalpana Barbour. DISCHARGE DISPOSITION: Home. PRIMARY DISCHARGE DIAGNOSES: Dysphagia and acid reflux due to paraesophageal hernia and esophagitis. SECONDARY DISCHARGE DIAGNOSES: Morbid obesity with BMI of 43, hypertension, gout, glaucoma, dyslipidemia, diabetic neuropathy, diabetes type 2, coronary artery disease, gastroesophageal reflux disease. PRIMARY PROCEDURE/OPERATION: EGD showed paraesophageal hernia and esophagitis. Biopsy obtained, result is pending. RADIOLOGICAL INVESTIGATION: Barium swallow, CT abdomen and pelvis. SIGNIFICANT LABORATORY DATA: WBC 5.7, hemoglobin 12.5, platelet 155. Sodium 140, creatinine 1.18, calcium 9.0. DISCHARGE MEDICATIONS: 1. Allopurinol 300 mg p.o. daily. 2. Aspirin 81 mg daily. 3. Brimonidine one drop each eye t.i.d. 4. Dorzolamide timolol eye drops t.i.d. 5. Fenofibrate 160 mg p.o. at bedtime. 6. Lasix 40 mg p.o. b.i.d. 7. Humulin R 7 units subcu b.i.d. 8. Pravastatin 80 mg p.o. at bedtime. 9. Quinapril 40 mg daily. 10. Coreg 6.25 mg b.i.d. 11. Metformin 850 mg b.i.d. 12. Protonix 40 mg daily. CONTRAINDICATION: None. CODE STATUS: Full code. INPATIENT LINUX NETWORK ENGINEER: Dr. Carcamo and Dr. Harris was following while in hospital. TEST RESULTS PENDING ON DISCHARGE: None. ALLERGIES: CODEINE. DISCHARGE PLAN: Posthospital, the patient is instructed to follow up with primary care physician in 1 week. HOSPITAL COURSE: A 64-year-old male, who was admitted by Dr. Cope'. Please see his H and P for further details. The patient was having difficulty swallowing with acid reflux symptoms and that is why he was sent to emergency room. The patient was admitted in the hospital and he was evaluated by staff certified nurse midwife. In the emergency room, he had an esophagogram which showed prominent esophageal spasm without any leak and CT abdomen and pelvis showed distal esophageal thickening, constipation, and left nephrolithiasis and inguinal hernia. After endoscopy, the patient was found with paraesophageal hernia and biopsy was obtained. GI recommended to continue soft diet and Protonix was advised. We advised the patient to avoid NSAIDs and non-pharmacological treatment for acid reflux was discussed. The patient's symptoms should improve with this treatment, if not then the patient will need in future paraesophageal hernia surgical repair. Job ID: [id number]
[2019-06-12] MEDS ORDERED: PROPOFOL 200 MG/20 ML VIAL ONE (14:32)
[2019-06-12] MEDS ORDERED: Lidocaine 1% PF 5 ML VIAL ONE (14:32)
== END 2019-06-12 15:38 | disposition home or self-care (01) | DRG 392 ==
LOC: ERS 04:05 → T4-A 07:23
PROVIDERS: ADMIT Internal Medicine; ATTEND Internal Medicine
PROC: 0DB78ZX Excision of Stomach, Pylorus, Via Natural or Artificial Opening Endoscopic, Diagnostic (ICD-10-PCS; principal; 2019-06-12)
PROC: 3E02340 Introduction of Influenza Vaccine into Muscle, Percutaneous Approach (ICD-10-PCS; 2019-06-12)
PROC: 3E0234Z Introduction of Serum, Toxoid and Vaccine into Muscle, Percutaneous Approach (ICD-10-PCS; 2019-06-12)
DX: K44.9 Diaphragmatic hernia without obstruction or gangrene (principal); Z23 Encounter for immunization; K21.0 Gastro-esophageal reflux disease with esophagitis; K29.70 Gastritis, unspecified, without bleeding; I25.10 Atherosclerotic heart disease of native coronary artery without angina pectoris; I10 Essential (primary) hypertension; M10.9 Gout, unspecified; E78.00 Pure hypercholesterolemia, unspecified; H40.9 Unspecified glaucoma; M19.90 Unspecified osteoarthritis, unspecified site; E11.40 Type 2 diabetes mellitus with diabetic neuropathy, unspecified; E66.01 Morbid (severe) obesity due to excess calories; Z68.41 Body mass index [BMI] 40.0-44.9, adult; Z88.5 Allergy status to narcotic agent; Z88.2 Allergy status to sulfonamides; Z79.82 Long term (current) use of aspirin; Z79.4 Long term (current) use of insulin; Z79.899 Other long term (current) drug therapy; Z95.1 Presence of aortocoronary bypass graft; Z90.49 Acquired absence of other specified parts of digestive tract
CPT/HCPCS: 36415; 36416; 74177; 74220; 80048; 80053; 81001; 82550; 82553; 83605; 83690; 84484; 85025; 88305; 88312; 90471; 90662; 93005; C9113; G0008; J2001; J2704; Q9963; Q9967

== ENCOUNTER 2019-06-27 22:37 | Emergency (ER) | payer OTHER, MEDICARE ==
[2019-06-27] MEDS ORDERED: Mag-Al 1200 mg/1200 mg/30 ML UDCUP ONE (23:48)
[2019-06-27] MEDS ORDERED: Lidocaine Viscous Sol 2% 15 ml UD Cup ONE (23:48)
--- NOTE | 2019-07-01 14:07 | EKG ---
Test Reason : Blood Pressure : / mmHG Vent. Rate : 075 BPM Atrial Rate : 075 BPM P-R Int : 150 ms QRS Dur : 082 ms QT Int : 394 ms P-R-T Axes : 051 016 099 degrees QTc Int : 439 ms Normal sinus rhythm Possible Left atrial enlargement Low voltage QRS Nonspecific ST and T wave abnormality Abnormal ECG Confirmed by BARNEY HAMPTON ([id number]), editor sound SEDRICK MARIA ([id number]) on 07/01/2019 2:06:56 PM Referred By: Confirmed By:BARNEY HAMPTON
== END 2019-06-27 23:54 | disposition home or self-care (01) ==
LOC: ERS 22:37
DX: K21.0 Gastro-esophageal reflux disease with esophagitis (principal); E11.9 Type 2 diabetes mellitus without complications; I10 Essential (primary) hypertension; M10.9 Gout, unspecified; E78.5 Hyperlipidemia, unspecified; Z79.82 Long term (current) use of aspirin; Z79.891 Long term (current) use of opiate analgesic; Z79.899 Other long term (current) drug therapy; Z79.4 Long term (current) use of insulin
CPT/HCPCS: 93005

== ENCOUNTER 2020-03-02 05:11 | Emergency (ER) | payer OTHER, MEDICARE ==
[2020-03-02] MEDS ORDERED: Morphine 10 MG/ML VIAL ONE (05:47)
== END 2020-03-02 06:17 | disposition home or self-care (01) ==
LOC: ERS 05:11
DX: M54.5 Low back pain (principal); E66.01 Morbid (severe) obesity due to excess calories; E11.9 Type 2 diabetes mellitus without complications; I10 Essential (primary) hypertension; K21.9 Gastro-esophageal reflux disease without esophagitis; M10.9 Gout, unspecified; E78.5 Hyperlipidemia, unspecified; Z95.1 Presence of aortocoronary bypass graft; Z79.4 Long term (current) use of insulin; Z79.899 Other long term (current) drug therapy
CPT/HCPCS: 96372; 99283; J2270

== ENCOUNTER 2020-07-23 11:20 | Emergency (ER) | payer OTHER, MEDICARE | END 2020-07-23 12:01 | disposition home or self-care (01) | LOC: ERS 11:20 | DX: J02.9 Acute pharyngitis, unspecified (principal); Z79.899 Other long term (current) drug therapy; Z79.82 Long term (current) use of aspirin; Z79.4 Long term (current) use of insulin; E11.9 Type 2 diabetes mellitus without complications; I10 Essential (primary) hypertension; E78.5 Hyperlipidemia, unspecified; K21.9 Gastro-esophageal reflux disease without esophagitis | CPT/HCPCS: 99282 ==

== ENCOUNTER 2020-11-12 06:33 | Emergency (ER) | payer MEDICARE ==
[2020-11-12] MEDS ORDERED: diphenhydrAMINE 50 MG/ML VIAL ONE (07:56)
[2020-11-12] MEDS ORDERED: Ketorolac Tromethamine 30 MG/ML VIAL ONE (07:56)
[2020-11-12] MEDS ORDERED: Metoclopramide 10 MG/10 ML UDCUP ONE (07:56)
[2020-11-12] MEDS ORDERED: Metoclopramide HCl 10 MG/2 ML VIAL ONE (07:58)
[2020-11-12 08:10] LABS: ALT (SGPT) 16 U/L (8-55); AST (SGOT) 16 U/L (5-34); Albumin 3.4 g/dL (3.4-4.8); Alkaline Phosphatase 77 U/L (40-110); Anion Gap 8 mmol/L (10-20); BUN (Urea Nitrogen) 8 mg/dL (8.4-25.7); Bilirubin, Total 0.5 mg/dL (0.2-1.2); Calc. Creatinine Clearance 0 mL/min (70-130); Calcium 9.1 mg/dL (7.8-10.44); Carbon Dioxide 32 mmol/L (23-31); Chloride 103 mmol/L (98-107); Globulin 3.7 g/dL (2.4-3.5); Glucose 236 mg/dL (80-115); Potassium 4.2 mmol/L (3.5-5.1); Protein, Total 7.1 g/dL (5.8-8.1); Sodium 139 mmol/L (136-145)
[2020-11-12 08:29] LABS: #Eosinphils 0.5 thou/uL (0.0-0.7); #Lymphocytes 2.2 thou/uL (1.20-3.40); #Monocytes 0.5 thou/uL (0.11-0.59); #Neutrophils 3.6 thou/uL (1.40-6.50); %Basophils 0.5 % (0.0-1.0); %Eosinophils 6.7 % (0.0-10.0); %Lymphocytes 32.1 % (21.0-51.0); %Monocytes 7.8 % (0.0-10.0); %Neutrophils 52.9 % (42.0-75.0); Hemoglobin 11.3 g/dL (14.0-18.0); Hypochromia SLIGHT = 6-15 cells (100X) (0-5/hpf); MDiff Complete? YES; Mean Corpuscular HGB CONC 29.9 g/dL (32.0-36.0); Mean Corpuscular Hemoglobin 25.5 pg (27.0-31.0); Mean Corpuscular Volume 85.5 fL (78.0-98.0); Mean Platelet Volume 8.8 fL (7.4-10.4); Platelet Count 184 thou/uL (130-400); Platelet Morphology Comment Appears Adequate; RBC Distribution Width 15.8 % (11.5-14.5); Red Blood Cell (RBC) Count 4.41 mill/uL (4.70-6.10); White Blood Cell (WBC) Count 6.8 thou/uL (4.8-10.8)
[2020-11-12] MEDS ORDERED: Dexamethasone 10 MG/ML VIAL ONE (09:40)
== END 2020-11-12 09:35 | disposition home or self-care (01) ==
LOC: ERS 06:33
DX: M54.12 Radiculopathy, cervical region (principal); R51.9 Headache, unspecified; E11.9 Type 2 diabetes mellitus without complications; I10 Essential (primary) hypertension; E78.5 Hyperlipidemia, unspecified; Z79.899 Other long term (current) drug therapy
CPT/HCPCS: 36415; 70450; 72125; 80053; 85025; 85652; 96365; 96375; J1100; J1200; J1885; J2765

== ENCOUNTER 2020-11-28 21:09 | Emergency (ER) | payer MEDICARE ==
[2020-11-28] MEDS ORDERED: Furosemide 40 MG/4 ML VIAL ONE (22:58)
[2020-11-28 23:00] LABS: #Eosinphils 0.3 thou/uL (0.0-0.7); #Lymphocytes 2.7 thou/uL (1.20-3.40); #Monocytes 0.6 thou/uL (0.11-0.59); #Neutrophils 5.7 thou/uL (1.40-6.50); %Basophils 0.4 % (0.0-1.0); %Eosinophils 3.6 % (0.0-10.0); %Neutrophils 61.1 % (42.0-75.0); Hemoglobin 12.7 g/dL (14.0-18.0); Mean Corpuscular HGB CONC 31.3 g/dL (32.0-36.0); Mean Corpuscular Hemoglobin 26.6 pg (27.0-31.0); Mean Corpuscular Volume 85.1 fL (78.0-98.0); Mean Platelet Volume 10.3 fL (7.4-10.4); Platelet Count 131 thou/uL (130-400); RBC Distribution Width 16.4 % (11.5-14.5); Red Blood Cell (RBC) Count 4.77 mill/uL (4.70-6.10); White Blood Cell (WBC) Count 9.3 thou/uL (4.8-10.8)
[2020-11-28 23:27] LABS: ALT (SGPT) 27 U/L (8-55); AST (SGOT) 36 U/L (5-34); Albumin 3.8 g/dL (3.4-4.8); Alkaline Phosphatase 92 U/L (40-110); Anion Gap 15 mmol/L (10-20); BUN (Urea Nitrogen) 19 mg/dL (8.4-25.7); Bilirubin, Total 0.4 mg/dL (0.2-1.2); CK (CPK) 111 U/L (30-200); Calc. Creatinine Clearance 0 mL/min (70-130); Carbon Dioxide 29 mmol/L (23-31); Chloride 100 mmol/L (98-107); Globulin 3.7 g/dL (2.4-3.5); Glucose 185 mg/dL (80-115); Potassium 5.3 mmol/L (3.5-5.1); Protein, Total 7.5 g/dL (5.8-8.1); Sodium 139 mmol/L (136-145)
== END 2020-11-29 00:55 | disposition home or self-care (01) ==
LOC: ERS 21:09
DX: R06.00 Dyspnea, unspecified (principal); E11.9 Type 2 diabetes mellitus without complications; M10.9 Gout, unspecified; E78.5 Hyperlipidemia, unspecified; K21.9 Gastro-esophageal reflux disease without esophagitis; I10 Essential (primary) hypertension
CPT/HCPCS: 36415; 71045; 80053; 82550; 83880; 84484; 85025; 93005; 96374; J1940

== ENCOUNTER 2020-12-02 17:43 | Inpatient (IN) | payer MEDICARE ==
[~2020-12-02 17:43] MED LIST: Iopamidol-370 76% 500 ML 1 ML ONE
[2020-12-02 18:29] LABS: #Basophils 0.1 thou/uL (0.0-0.2); #Eosinphils 0.4 thou/uL (0.0-0.7); #Monocytes 0.5 thou/uL (0.11-0.59); #Neutrophils 2.4 thou/uL (1.40-6.50); %Basophils 1.3 % (0.0-1.0); %Eosinophils 7.6 % (0.0-10.0); %Lymphocytes 37.4 % (21.0-51.0); %Monocytes 9.4 % (0.0-10.0); %Neutrophils 44.3 % (42.0-75.0); Hemoglobin 11.9 g/dL (14.0-18.0); Mean Corpuscular HGB CONC 32.7 g/dL (32.0-36.0); Mean Corpuscular Hemoglobin 27.3 pg (27.0-31.0); Mean Corpuscular Volume 83.7 fL (78.0-98.0); Mean Platelet Volume 10.3 fL (7.4-10.4); Platelet Count 105 thou/uL (130-400); RBC Distribution Width 16.2 % (11.5-14.5); Red Blood Cell (RBC) Count 4.37 mill/uL (4.70-6.10); White Blood Cell (WBC) Count 5.4 thou/uL (4.8-10.8)
[2020-12-02 18:49] LABS: ALT (SGPT) 20 U/L (8-55); AST (SGOT) 19 U/L (5-34); Albumin 3.6 g/dL (3.4-4.8); Alkaline Phosphatase 81 U/L (40-110); Anion Gap 11 mmol/L (10-20); BUN (Urea Nitrogen) 12 mg/dL (8.4-25.7); Bilirubin, Total 0.5 mg/dL (0.2-1.2); Calc. Creatinine Clearance 0 mL/min (70-130); Calcium 8.7 mg/dL (7.8-10.44); Carbon Dioxide 30 mmol/L (23-31); Chloride 101 mmol/L (98-107); Globulin 3.4 g/dL (2.4-3.5); Glucose 349 mg/dL (80-115); Potassium 4.3 mmol/L (3.5-5.1); Sodium 138 mmol/L (136-145)
[2020-12-02] MEDS ORDERED: Furosemide 40 MG/4 ML VIAL ONE (20:55)
[2020-12-03 00:24] LABS: SARS-CoV-2 NAA Rapid Test Not Detected (NotDetected)
[2020-12-03] MEDS ORDERED: Aspirin Chewable 81 MG TAB ONE (00:46)
[2020-12-03] MEDS ORDERED: Ondansetron PF 4 MG/2 ML Vial IVP PRN (01:15)
[2020-12-03] MEDS ORDERED: Ondansetron ODT 4 MG TAB SL PRN (01:15)
[2020-12-03] MEDS ORDERED: Acetaminophen 325 MG TAB PO PRN (01:15)
[2020-12-03 01:16] LABS: Troponin I 0.014 ng/mL (< 0.028)
[2020-12-03 01:36] VITALS: BMI 46.1
[2020-12-03] MEDS ORDERED: Dextrose 5% in Water 1,000 ML IV PRN (02:28)
[2020-12-03] MEDS ORDERED: Dextrose 50% Abboject 50 ML SYRINGE SLOW IVP PRN (02:28)
[2020-12-03 05:14] LABS: Hemoglobin A1c 8.2 % (4.0-6.0)
[2020-12-03 05:27] LABS: Cardiac Risk 4.1 (Less than 4.5)
[2020-12-03 05:32] LABS: Troponin I 0.021 ng/mL (< 0.028)
[2020-12-03 08:38] LABS: Troponin I 0.025 ng/mL (< 0.028)
[2020-12-03] MEDS ORDERED: Regadenoson 0.4 MG/5 ML SYRINGE ONE (09:23)
[2020-12-03] MEDS ORDERED: Iopamidol-370 76% 500 ML 1 ML ONE (10:03)
[2020-12-03] MEDS: Furosemide 20 MG TAB PO SCH (12:19)
[2020-12-03] MEDS: Allopurinol 300 MG TAB PO SCH (12:19)
[2020-12-03] MEDS: Aspirin Chewable 81 MG TAB PO SCH (12:19)
[2020-12-03] MEDS: Carvedilol 6.25 MG TAB PO SCH ×2 (12:19→17:11)
[2020-12-03] MEDS: Lisinopril 20 MG TAB PO SCH (12:19)
[2020-12-03] MEDS: HumaLOG 300 UNITS/3 ML VIAL SC PRN ×2 (17:11→21:47)
[2020-12-04 04:42] LABS: #Basophils 0.1 thou/uL (0.0-0.2); #Eosinphils 0.4 thou/uL (0.0-0.7); #Lymphocytes 1.8 thou/uL (1.20-3.40); #Monocytes 0.5 thou/uL (0.11-0.59); %Basophils 1.4 % (0.0-1.0); %Eosinophils 7.9 % (0.0-10.0); %Lymphocytes 38.5 % (21.0-51.0); %Monocytes 9.9 % (0.0-10.0); %Neutrophils 42.4 % (42.0-75.0); Hemoglobin 11.2 g/dL (14.0-18.0); Mean Corpuscular HGB CONC 31.6 g/dL (32.0-36.0); Mean Corpuscular Hemoglobin 26.3 pg (27.0-31.0); Mean Corpuscular Volume 83.1 fL (78.0-98.0); Mean Platelet Volume 10.8 fL (7.4-10.4); Platelet Count 106 thou/uL (130-400); RBC Distribution Width 16.1 % (11.5-14.5); Red Blood Cell (RBC) Count 4.27 mill/uL (4.70-6.10); White Blood Cell (WBC) Count 4.8 thou/uL (4.8-10.8)
[2020-12-04 05:03] LABS: Anion Gap 10 mmol/L (10-20); BUN (Urea Nitrogen) 12 mg/dL (8.4-25.7); Calc. Creatinine Clearance 169 mL/min (70-130); Calcium 8.9 mg/dL (7.8-10.44); Carbon Dioxide 29 mmol/L (23-31); Chloride 101 mmol/L (98-107); Glucose 243 mg/dL (80-115); Potassium 4.1 mmol/L (3.5-5.1); Sodium 136 mmol/L (136-145)
[2020-12-04] MEDS: HumaLOG 300 UNITS/3 ML VIAL SC PRN ×4 (05:36→21:01)
[2020-12-04] MEDS: Aspirin Chewable 81 MG TAB PO SCH (08:06)
[2020-12-04] MEDS: Carvedilol 6.25 MG TAB PO SCH ×2 (08:06→17:01)
[2020-12-04] MEDS: Allopurinol 300 MG TAB PO SCH (08:06)
[2020-12-04] MEDS: Lisinopril 20 MG TAB PO SCH (08:06)
[2020-12-04] MEDS: Furosemide 20 MG TAB PO SCH (08:06)
[2020-12-04] MEDS ORDERED: Furosemide 40 MG/4 ML VIAL SLOW IVP SCH (10:30)
[2020-12-04] MEDS: Acetaminophen 325 MG TAB PO PRN (12:21)
[2020-12-04] MEDS ORDERED: Enoxaparin Sodium 40 MG/0.4 ML SYRINGE SC SCH (12:45)
[2020-12-05] MEDS: Acetaminophen 325 MG TAB PO PRN (03:58)
[2020-12-05 05:38] LABS: #Basophils 0.1 thou/uL (0.0-0.2); #Eosinphils 0.4 thou/uL (0.0-0.7); #Lymphocytes 1.8 thou/uL (1.20-3.40); #Monocytes 0.5 thou/uL (0.11-0.59); #Neutrophils 1.7 thou/uL (1.40-6.50); %Basophils 1.8 % (0.0-1.0); %Eosinophils 9.1 % (0.0-10.0); %Lymphocytes 40.6 % (21.0-51.0); %Monocytes 10.2 % (0.0-10.0); %Neutrophils 38.2 % (42.0-75.0); Hemoglobin 11.2 g/dL (14.0-18.0); Mean Corpuscular HGB CONC 31.6 g/dL (32.0-36.0); Mean Corpuscular Volume 82.1 fL (78.0-98.0); Mean Platelet Volume 9.7 fL (7.4-10.4); Platelet Count 102 thou/uL (130-400); RBC Distribution Width 16.1 % (11.5-14.5); Red Blood Cell (RBC) Count 4.33 mill/uL (4.70-6.10); White Blood Cell (WBC) Count 4.5 thou/uL (4.8-10.8)
[2020-12-05 05:54] LABS: Anion Gap 9 mmol/L (10-20); BUN (Urea Nitrogen) 12 mg/dL (8.4-25.7); Calc. Creatinine Clearance 145 mL/min (70-130); Calcium 9.1 mg/dL (7.8-10.44); Carbon Dioxide 31 mmol/L (23-31); Chloride 100 mmol/L (98-107); Glucose 241 mg/dL (80-115); Potassium 3.9 mmol/L (3.5-5.1); Sodium 136 mmol/L (136-145)
[2020-12-05] MEDS ORDERED: Metolazone 5 MG TAB PO SCH (06:00)
[2020-12-05] MEDS: HumaLOG 300 UNITS/3 ML VIAL SC PRN ×2 (06:14→11:56)
[2020-12-05] MEDS ORDERED: Furosemide 40 MG/4 ML VIAL SLOW IVP SCH (09:00)
[2020-12-05] MEDS ORDERED: Enoxaparin Sodium 40 MG/0.4 ML SYRINGE SC SCH (09:00)
[2020-12-05] MEDS: Aspirin Chewable 81 MG TAB PO SCH (09:10)
[2020-12-05] MEDS: Lisinopril 20 MG TAB PO SCH (09:10)
[2020-12-05] MEDS: Allopurinol 300 MG TAB PO SCH (09:11)
[2020-12-05] MEDS: Carvedilol 6.25 MG TAB PO SCH (09:11)
[2020-12-05] MEDS: Furosemide 20 MG TAB PO SCH ×2 (09:11→16:46)
[2020-12-05] MEDS ORDERED: Furosemide 20 MG/2 ML VIAL SLOW IVP SCH (10:18)
[2020-12-05 12:47] VITALS: BP 136/60; TEMP 98.2
== END 2020-12-05 16:35 | disposition home or self-care (01) | DRG 292 ==
LOC: ERS 17:43 → 2SW 22:04 → OBSVTOIN 12-04 17:43
PROVIDERS: ADMIT Student in an Organized Health Care Education/Training Program; ATTEND Internal Medicine
DX: I11.0 Hypertensive heart disease with heart failure (principal); Z68.42 Body mass index [BMI] 45.0-49.9, adult; I50.33 Acute on chronic diastolic (congestive) heart failure; E66.01 Morbid (severe) obesity due to excess calories; I25.10 Atherosclerotic heart disease of native coronary artery without angina pectoris; G47.33 Obstructive sleep apnea (adult) (pediatric); Z20.822 Contact with and (suspected) exposure to COVID-19; E78.00 Pure hypercholesterolemia, unspecified; E11.42 Type 2 diabetes mellitus with diabetic polyneuropathy; E78.5 Hyperlipidemia, unspecified; I87.2 Venous insufficiency (chronic) (peripheral); Z88.6 Allergy status to analgesic agent; Z79.899 Other long term (current) drug therapy; Z79.4 Long term (current) use of insulin; Z79.82 Long term (current) use of aspirin; Z95.1 Presence of aortocoronary bypass graft; Z90.49 Acquired absence of other specified parts of digestive tract
CPT/HCPCS: 0240U; 36415; 36416; 71045; 71260; 71275; 78452; 80048; 80053; 80061; 82550; 83036; 83880; 84484; 85025; 85379; 93005; 93017; 93306; 94760; 96372; 96374; 96376; A9500; G0378; J1650; J1815; J1940; J2785; Q9967

== ENCOUNTER 2021-04-29 01:40 | Inpatient (IN) | payer MEDICARE ==
[2021-04-29] MEDS ORDERED: Nitroglycerin 0.4 MG TAB 1 EACH ONE (02:19)
[2021-04-29] MEDS ORDERED: Aspirin 325 MG TAB ONE ×2 (02:19→09:09)
[2021-04-29 02:25] LABS: #Basophils 0.1 thou/uL (0.0-0.2); #Eosinphils 0.4 thou/uL (0.0-0.7); #Lymphocytes 2.3 thou/uL (1.20-3.40); #Monocytes 0.6 thou/uL (0.11-0.59); #Neutrophils 2.7 thou/uL (1.40-6.50); %Eosinophils 6.8 % (0.0-10.0); %Lymphocytes 37.8 % (21.0-51.0); %Monocytes 9.7 % (0.0-10.0); %Neutrophils 44.7 % (42.0-75.0); Hemoglobin 12.2 g/dL (14.0-18.0); Mean Corpuscular HGB CONC 32.7 g/dL (32.0-36.0); Mean Corpuscular Hemoglobin 26.8 pg (27.0-31.0); Mean Corpuscular Volume 81.9 fL (78.0-98.0); Mean Platelet Volume 10.3 fL (7.4-10.4); Platelet Count 121 thou/uL (130-400); RBC Distribution Width 15.9 % (11.5-14.5); Red Blood Cell (RBC) Count 4.57 mill/uL (4.70-6.10); White Blood Cell (WBC) Count 6.1 thou/uL (4.8-10.8)
[2021-04-29 02:45] LABS: ALT (SGPT) 13 U/L (8-55); AST (SGOT) 19 U/L (5-34); Albumin 3.7 g/dL (3.4-4.8); Alkaline Phosphatase 108 U/L (40-110); Anion Gap 12 mmol/L (10-20); BUN (Urea Nitrogen) 9 mg/dL (8.4-25.7); Bilirubin, Total 0.4 mg/dL (0.2-1.2); Calc. Creatinine Clearance 0 mL/min (70-130); Calcium 9.4 mg/dL (7.8-10.44); Carbon Dioxide 33 mmol/L (23-31); Chloride 100 mmol/L (98-107); Globulin 3.8 g/dL (2.4-3.5); Glucose 166 mg/dL (80-115); Potassium 3.7 mmol/L (3.5-5.1); Protein, Total 7.5 g/dL (5.8-8.1); Sodium 141 mmol/L (136-145)
[2021-04-29 03:08] LABS: CKMB 2.2 ng/mL (0-6.6)
[2021-04-29] MEDS ORDERED: Ondansetron PF 4 MG/2 ML Vial ONE (03:20)
[2021-04-29] MEDS ORDERED: Morphine 4 MG/ML VIAL ONE (03:20)
[2021-04-29] MEDS ORDERED: Enoxaparin Sodium 100 MG/ML SYRINGE ONE (04:04)
[2021-04-29] MEDS ORDERED: Enoxaparin Sodium 60 MG/0.6 ML SYRINGE ONE (04:04)
[2021-04-29] MEDS ORDERED: Ondansetron PF 4 MG/2 ML Vial IVP PRN (04:22)
[2021-04-29] MEDS ORDERED: Acetaminophen 325 MG TAB PO PRN (04:22)
[2021-04-29] MEDS ORDERED: Nitroglycerin 0.4 MG TAB (25 Tab Bottle) SL PRN (04:22)
[2021-04-29] MEDS ORDERED: Dextrose 50% Abboject 50 ML SYRINGE SLOW IVP PRN (04:25)
[2021-04-29] MEDS ORDERED: HumaLOG 300 UNITS/3 ML VIAL SC PRN ×2 (04:25)
[2021-04-29] MEDS ORDERED: Dextrose 5% in Water 1,000 ML IV PRN (04:25)
[2021-04-29 05:48] LABS: Troponin I 0.076 ng/mL (< 0.028)
[2021-04-29 06:05] LABS: SARS-CoV-2 NAA Rapid Test Not Detected (NotDetected)
[2021-04-29 08:39] LABS: Troponin I 0.078 ng/mL (< 0.028)
[2021-04-29] MEDS ORDERED: Aspirin Chewable 81 MG TAB PO SCH ×2 (09:00)
[2021-04-29] MEDS ORDERED: Aspirin Chewable 81 MG TAB ONE (09:11)
[2021-04-29 13:18] VITALS: BMI 47.3
[2021-04-29 14:10] VITALS: TEMP 98
[2021-04-29] MEDS ORDERED: DorzolamidE/Timolol 2%/0.5% Ophth Soln 10 ml Bottle EA EYE SCH (15:00)
[2021-04-29 15:31] VITALS: BP 138/80
[2021-04-29] MEDS ORDERED: Carvedilol 6.25 MG TAB PO SCH (17:00)
[2021-04-29] MEDS ORDERED: Atorvastatin Calcium 20 MG TAB PO SCH (21:00)
[2021-04-29] MEDS ORDERED: Insulin Regular 300 UNITS/3 ML VIAL SC SCH (21:00)
[2021-04-30] MEDS ORDERED: Enoxaparin Sodium 40 MG/0.4 ML SYRINGE SC SCH (09:00)
[2021-04-30] MEDS ORDERED: Lisinopril 20 MG TAB PO SCH (09:00)
[2021-04-30] MEDS ORDERED: Furosemide 20 MG TAB PO SCH (09:00)
[2021-04-30] MEDS ORDERED: Allopurinol 300 MG TAB PO SCH (09:00)
[2021-04-30] MEDS ORDERED: FLU VACC QS2021-22(65YR UP)/PF 240 MCG/0.7 ML SYRINGE IM ONE (13:30)
== END 2021-04-29 17:25 | disposition home or self-care (01) | DRG 313 ==
LOC: ERS 01:40 → ERHOLD 03:59 → 2NO 11:51
PROVIDERS: ADMIT Internal Medicine; ATTEND Nurse Practitioner Family
DX: R07.89 Other chest pain (principal); I50.32 Chronic diastolic (congestive) heart failure; Z68.42 Body mass index [BMI] 45.0-49.9, adult; I25.10 Atherosclerotic heart disease of native coronary artery without angina pectoris; I11.0 Hypertensive heart disease with heart failure; E11.9 Type 2 diabetes mellitus without complications; D64.9 Anemia, unspecified; K21.9 Gastro-esophageal reflux disease without esophagitis; M10.9 Gout, unspecified; E78.5 Hyperlipidemia, unspecified; D69.6 Thrombocytopenia, unspecified; E66.01 Morbid (severe) obesity due to excess calories; Z20.822 Contact with and (suspected) exposure to COVID-19; Z88.5 Allergy status to narcotic agent; Z79.82 Long term (current) use of aspirin; Z79.4 Long term (current) use of insulin; Z79.899 Other long term (current) drug therapy; Z90.49 Acquired absence of other specified parts of digestive tract; Z95.1 Presence of aortocoronary bypass graft; Z87.891 Personal history of nicotine dependence
CPT/HCPCS: 36415; 36416; 71045; 80053; 82553; 83880; 84484; 85025; 93005; J1650; J2270; J2405; U0002

== ENCOUNTER 2021-08-21 18:49 | Emergency (ER) | payer MEDICARE ==
[2021-08-21 19:20] LABS: #Eosinphils 0.5 thou/uL (0.0-0.7); #Lymphocytes 2.2 thou/uL (1.20-3.40); #Monocytes 0.6 thou/uL (0.11-0.59); #Neutrophils 4.3 thou/uL (1.40-6.50); %Basophils 0.5 % (0.0-1.0); %Eosinophils 6.6 % (0.0-10.0); %Monocytes 7.8 % (0.0-10.0); Hemoglobin 12.2 g/dL (14.0-18.0); Mean Corpuscular HGB CONC 31.3 g/dL (32.0-36.0); Mean Corpuscular Hemoglobin 26.5 pg (27.0-31.0); Mean Corpuscular Volume 84.6 fL (78.0-98.0); Mean Platelet Volume 9.3 fL (7.4-10.4); Platelet Count 124 thou/uL (130-400); RBC Distribution Width 15.8 % (11.5-14.5); Red Blood Cell (RBC) Count 4.62 mill/uL (4.70-6.10); White Blood Cell (WBC) Count 7.6 thou/uL (4.8-10.8)
[2021-08-21] MEDS ORDERED: Ketorolac Tromethamine 30 MG/ML VIAL ONE (19:28)
[2021-08-21 19:44] LABS: ALT (SGPT) 30 U/L (8-55); AST (SGOT) 22 U/L (5-34); Albumin 3.5 g/dL (3.4-4.8); Alkaline Phosphatase 101 U/L (40-110); Anion Gap 14 mmol/L (10-20); BUN (Urea Nitrogen) 9 mg/dL (8.4-25.7); Bilirubin, Total 0.4 mg/dL (0.2-1.2); Calc. Creatinine Clearance 0 mL/min (70-130); Calcium 8.8 mg/dL (7.8-10.44); Carbon Dioxide 27 mmol/L (23-31); Chloride 100 mmol/L (98-107); Globulin 4.1 g/dL (2.4-3.5); Glucose 245 mg/dL (80-115); Lipase 15 U/L (8-78); Protein, Total 7.6 g/dL (5.8-8.1); Sodium 137 mmol/L (136-145)
[2021-08-21] MEDS ORDERED: Morphine 4 MG/ML VIAL ONE (20:30)
[2021-08-21 21:43] LABS: Bacteria/HPF None Seen HPF (None Seen); Bilirubin Negative (Negative); Blood, Urine 1+ (Negative); Clarity Clear (Clear); Glucose, Urine (Dipstick) Normal (Negative); Ketone, Urine Negative (Negative); Leukocyte Negative Leu/uL (Negative); Nitrite Negative (Negative); Protein, Urine (Dipstick) Negative (Neg-Trace); Specific Gravity, Urine 1.009 (1.002-1.036); Squamous Epithelial 0-3 HPF (0-3); Urobilinogen Normal mg/dL (Less than 2); WBC/HPF 0-3 HPF (0-3)
== END 2021-08-21 22:10 | disposition home or self-care (01) ==
LOC: ERS 18:49
DX: R10.11 Right upper quadrant pain (principal); R07.81 Pleurodynia; D64.9 Anemia, unspecified; I11.0 Hypertensive heart disease with heart failure; I50.9 Heart failure, unspecified; E66.9 Obesity, unspecified; E11.9 Type 2 diabetes mellitus without complications; M10.9 Gout, unspecified; K21.9 Gastro-esophageal reflux disease without esophagitis; E78.5 Hyperlipidemia, unspecified; Z87.891 Personal history of nicotine dependence; Z79.899 Other long term (current) drug therapy; Z79.4 Long term (current) use of insulin
CPT/HCPCS: 36415; 71046; 74176; 80053; 81003; 81015; 83690; 85025; 96374; 96375; J1885; J2270

== ENCOUNTER 2022-01-24 07:44 | Observation (INO) | payer MEDICARE, OTHER ==
[2022-01-24 08:02] LABS: #Basophils 0.1 thou/uL (0.0-0.2); #Eosinphils 0.6 thou/uL (0.0-0.7); #Lymphocytes 2.6 thou/uL (1.20-3.40); #Monocytes 0.6 thou/uL (0.11-0.59); #Neutrophils 3.3 thou/uL (1.40-6.50); %Basophils 1.1 % (0.0-1.0); %Eosinophils 7.8 % (0.0-10.0); %Neutrophils 46.1 % (42.0-75.0); Mean Corpuscular Hemoglobin 27.3 pg (27.0-31.0); Mean Corpuscular Volume 85.3 fL (78.0-98.0); Mean Platelet Volume 9.8 fL (7.4-10.4); Platelet Count 124 thou/uL (130-400); RBC Distribution Width 16.2 % (11.5-14.5); Red Blood Cell (RBC) Count 4.39 mill/uL (4.70-6.10); White Blood Cell (WBC) Count 7.1 thou/uL (4.8-10.8)
[2022-01-24 08:25] LABS: ALT (SGPT) Less than 7 U/L (8-55); AST (SGOT) 11 U/L (5-34); Albumin 3.3 g/dL (3.4-4.8); Alkaline Phosphatase 85 U/L (40-110); Anion Gap 14 mmol/L (10-20); BUN (Urea Nitrogen) 8 mg/dL (8.4-25.7); Bilirubin, Total 0.6 mg/dL (0.2-1.2); Calc. Creatinine Clearance 0 mL/min (70-130); Calcium 8.8 mg/dL (7.8-10.44); Carbon Dioxide 29 mmol/L (23-31); Chloride 100 mmol/L (98-107); Estimated GFR 65; Globulin 3.6 g/dL (2.4-3.5); Glucose 211 mg/dL (80-115); Lipase 8 U/L (8-78); Potassium 3.7 mmol/L (3.5-5.1); Protein, Total 6.9 g/dL (5.8-8.1); Sodium 139 mmol/L (136-145)
[2022-01-24] MEDS ORDERED: Nitroglycerin 0.4 MG TAB 1 EACH ONE ×2 (09:31→09:32)
[2022-01-24] MEDS ORDERED: Aspirin Chewable 81 MG TAB ONE (09:31)
[2022-01-24] MEDS ORDERED: Acetaminophen 500 MG TAB ONE (10:34)
[2022-01-24 12:38] LABS: Troponin I Less than 0.010 ng/mL (< 0.028)
[2022-01-24] MEDS ORDERED: Morphine 4 MG/ML VIAL ONE (12:46)
[2022-01-24] MEDS ORDERED: Ondansetron PF 4 MG/2 ML Vial ONE (12:46)
[2022-01-24] MEDS ORDERED: Acetaminophen 325 MG TAB PO PRN (13:55)
[2022-01-24] MEDS ORDERED: Acetaminophen 650 MG Suppository PR PRN (13:55)
[2022-01-24] MEDS ORDERED: Ondansetron PF 4 MG/2 ML Vial IVP PRN (13:55)
[2022-01-24] MEDS ORDERED: Ondansetron ODT 4 MG TAB PO PRN (13:55)
[2022-01-24] MEDS ORDERED: Lidocaine 4% Topical Sol 50 ML BOT TOP PRN (14:44)
[2022-01-24 15:15] LABS: Troponin I 0.016 ng/mL (< 0.028)
[2022-01-24 15:32] LABS: SARS-CoV-2 NAA Rapid Test Not Detected (NotDetected)
[2022-01-24] MEDS: Carvedilol 25 MG TAB PO SCH (16:51)
[2022-01-24] MEDS: DorzolamidE/Timolol 2%/0.5% Ophth Soln 10 ml Bottle EA EYE SCH ×2 (16:52→20:25)
[2022-01-24 17:27] VITALS: BMI 45.9
[2022-01-24] MEDS ORDERED: Atorvastatin Calcium 40 MG TAB PO SCH (21:00)
[2022-01-25 07:37] LABS: #Eosinphils 0.4 thou/uL (0.0-0.7); #Lymphocytes 1.6 thou/uL (1.20-3.40); #Monocytes 0.5 thou/uL (0.11-0.59); #Neutrophils 2.7 thou/uL (1.40-6.50); %Basophils 0.3 % (0.0-1.0); %Eosinophils 8.2 % (0.0-10.0); %Lymphocytes 30.2 % (21.0-51.0); %Neutrophils 51.4 % (42.0-75.0); Hemoglobin 11.2 g/dL (14.0-18.0); Mean Corpuscular HGB CONC 31.5 g/dL (32.0-36.0); Mean Corpuscular Hemoglobin 26.7 pg (27.0-31.0); Mean Corpuscular Volume 84.8 fL (78.0-98.0); Mean Platelet Volume 10.9 fL (7.4-10.4); Platelet Count 112 thou/uL (130-400); RBC Distribution Width 16.3 % (11.5-14.5); Red Blood Cell (RBC) Count 4.18 mill/uL (4.70-6.10); White Blood Cell (WBC) Count 5.2 thou/uL (4.8-10.8)
[2022-01-25] MEDS: DorzolamidE/Timolol 2%/0.5% Ophth Soln 10 ml Bottle EA EYE SCH (08:15)
[2022-01-25 08:58] LABS: Hemoglobin A1c 7.9 % (4.0-6.0)
[2022-01-25] MEDS ORDERED: Allopurinol 300 MG TAB PO SCH (09:00)
[2022-01-25] MEDS ORDERED: Furosemide 40 MG TAB PO SCH (09:00)
[2022-01-25] MEDS ORDERED: Aspirin Chewable 81 MG TAB PO SCH (09:00)
[2022-01-25] MEDS ORDERED: Gabapentin 100 MG CAP PO SCH (09:00)
[2022-01-25 09:10] LABS: Chloride 101 mmol/L (98-107); Potassium 4.1 mmol/L (3.5-5.1); Sodium 139 mmol/L (136-145)
[2022-01-25 09:11] LABS: Calcium 8.6 mg/dL (7.8-10.44); Glucose 216 mg/dL (80-115)
[2022-01-25 09:13] LABS: Anion Gap 10 mmol/L (10-20); Carbon Dioxide 32 mmol/L (23-31)
[2022-01-25 09:15] LABS: BUN (Urea Nitrogen) 8 mg/dL (8.4-25.7); Calc. Creatinine Clearance 154 mL/min (70-130); Estimated GFR 85
[2022-01-25 09:17] LABS: Magnesium 1.9 mg/dL (1.6-2.6)
[2022-01-25] MEDS ORDERED: Polyethylene Glycol 3350 17 GM Packet PO SCH (12:00)
[2022-01-25] MEDS: Carvedilol 25 MG TAB PO SCH (12:02)
[2022-01-25 12:09] VITALS: BP 130/65; TEMP 97.7
[2022-01-25] MEDS ORDERED: Docusate 100 MG CAP PO SCH (21:00)
[2022-01-26] MEDS ORDERED: Polyethylene Glycol 3350 17 GM Packet PO SCH (09:00)
== END 2022-01-25 15:43 | disposition home or self-care (01) ==
LOC: ERS 07:44 → ERHOLD 11:13 → 2SW 16:41
PROVIDERS: ADMIT Internal Medicine; ATTEND Internal Medicine
DX: R07.89 Other chest pain (principal); Z20.822 Contact with and (suspected) exposure to COVID-19; I25.10 Atherosclerotic heart disease of native coronary artery without angina pectoris; E11.9 Type 2 diabetes mellitus without complications; I11.0 Hypertensive heart disease with heart failure; I50.32 Chronic diastolic (congestive) heart failure; D64.9 Anemia, unspecified; E78.5 Hyperlipidemia, unspecified; L91.0 Hypertrophic scar; K21.9 Gastro-esophageal reflux disease without esophagitis; L97.909 Non-pressure chronic ulcer of unspecified part of unspecified lower leg with unspecified severity; E66.01 Morbid (severe) obesity due to excess calories; Z68.42 Body mass index [BMI] 45.0-49.9, adult; Z79.4 Long term (current) use of insulin; Z79.82 Long term (current) use of aspirin; Z79.899 Other long term (current) drug therapy; Z88.5 Allergy status to narcotic agent; Z87.891 Personal history of nicotine dependence; Z95.1 Presence of aortocoronary bypass graft
CPT/HCPCS: 71045; 80048; 80053; 82962 ×2; 83036; 83690; 83735; 84484 ×2; 85025 ×2; 93005; 94760 ×3; 96374; 96375; 99285; G0378 ×3; U0002; 36415; 36416; J2270; J2405

== ENCOUNTER 2022-01-29 03:22 | Emergency (ER) | payer OTHER ==
[2022-01-29 04:37] LABS: #Basophils 0.1 thou/uL (0.0-0.2); #Eosinphils 0.8 thou/uL (0.0-0.7); #Lymphocytes 2.7 thou/uL (1.20-3.40); #Monocytes 0.7 thou/uL (0.11-0.59); #Neutrophils 4.1 thou/uL (1.40-6.50); %Basophils 0.8 % (0.0-1.0); %Eosinophils 9.1 % (0.0-10.0); %Lymphocytes 32.9 % (21.0-51.0); %Monocytes 8.3 % (0.0-10.0); %Neutrophils 48.9 % (42.0-75.0); Hemoglobin 13.1 g/dL (14.0-18.0); Mean Corpuscular HGB CONC 31.3 g/dL (32.0-36.0); Mean Corpuscular Hemoglobin 27.2 pg (27.0-31.0); Mean Corpuscular Volume 86.8 fL (78.0-98.0); Mean Platelet Volume 10.8 fL (7.4-10.4); Platelet Count 146 thou/uL (130-400); RBC Distribution Width 16.7 % (11.5-14.5); Red Blood Cell (RBC) Count 4.82 mill/uL (4.70-6.10); White Blood Cell (WBC) Count 8.3 thou/uL (4.8-10.8)
[2022-01-29 04:57] LABS: ALT (SGPT) 9 U/L (8-55); AST (SGOT) 15 U/L (5-34); Albumin 3.7 g/dL (3.4-4.8); Alkaline Phosphatase 84 U/L (40-110); Anion Gap 14 mmol/L (10-20); BUN (Urea Nitrogen) 9 mg/dL (8.4-25.7); Bilirubin, Total 0.6 mg/dL (0.2-1.2); Calc. Creatinine Clearance 0 mL/min (70-130); Calcium 9.1 mg/dL (7.8-10.44); Carbon Dioxide 30 mmol/L (23-31); Chloride 101 mmol/L (98-107); Estimated GFR 65; Globulin 4.1 g/dL (2.4-3.5); Glucose 86 mg/dL (80-115); Potassium 3.6 mmol/L (3.5-5.1); Protein, Total 7.8 g/dL (5.8-8.1); Sodium 141 mmol/L (136-145)
[2022-01-29] MEDS ORDERED: Ketorolac Tromethamine 30 MG/ML VIAL ONE (05:13)
[2022-01-29 06:27] LABS: Bacteria/HPF None Seen HPF (None Seen); Bilirubin Negative (Negative); Blood, Urine Trace (Negative); Clarity Clear (Clear); Glucose, Urine (Dipstick) Normal (Negative); Ketone, Urine Negative (Negative); Leukocyte Negative Leu/uL (Negative); Nitrite Negative (Negative); Protein, Urine (Dipstick) Negative (Neg-Trace); Specific Gravity, Urine 1.017 (1.002-1.036); Urobilinogen 3 mg/dL (Less than 2); WBC/HPF 0-3 HPF (0-3); pH, Urine 5.5 (5.0-9.0)
== END 2022-01-29 07:35 | disposition home or self-care (01) ==
LOC: ERS 03:22
DX: E11.649 Type 2 diabetes mellitus with hypoglycemia without coma (principal); K21.9 Gastro-esophageal reflux disease without esophagitis; I11.0 Hypertensive heart disease with heart failure; I50.9 Heart failure, unspecified; M10.9 Gout, unspecified; Z87.891 Personal history of nicotine dependence; Z79.4 Long term (current) use of insulin; Z79.82 Long term (current) use of aspirin; Z79.899 Other long term (current) drug therapy
CPT/HCPCS: 36416; 70450; 71045; 80053; 81003; 81015; 84484; 85025; 96374; J1885

== ENCOUNTER 2022-02-04 18:31 | Emergency (ER) | payer OTHER ==
[2022-02-04] MEDS ORDERED: Acetaminophen 500 MG TAB ONE (19:06)
[2022-02-04] MEDS ORDERED: Metoclopramide HCl 10 MG/2 ML VIAL ONE (19:06)
[2022-02-04 19:40] LABS: #Basophils 0.1 thou/uL (0.0-0.2); #Eosinphils 0.5 thou/uL (0.0-0.7); #Lymphocytes 2.3 thou/uL (1.20-3.40); #Monocytes 0.6 thou/uL (0.11-0.59); #Neutrophils 2.9 thou/uL (1.40-6.50); %Basophils 1.4 % (0.0-1.0); %Lymphocytes 36.3 % (21.0-51.0); %Monocytes 9.6 % (0.0-10.0); %Neutrophils 44.7 % (42.0-75.0); Hemoglobin 12.5 g/dL (14.0-18.0); Mean Corpuscular HGB CONC 33.5 g/dL (32.0-36.0); Mean Corpuscular Hemoglobin 28.1 pg (27.0-31.0); Mean Corpuscular Volume 83.8 fL (78.0-98.0); Mean Platelet Volume 10.4 fL (7.4-10.4); Platelet Count 149 thou/uL (130-400); RBC Distribution Width 15.9 % (11.5-14.5); Red Blood Cell (RBC) Count 4.44 mill/uL (4.70-6.10); White Blood Cell (WBC) Count 6.4 thou/uL (4.8-10.8)
[2022-02-04 20:02] LABS: Anion Gap 15 mmol/L (10-20); BUN (Urea Nitrogen) 19 mg/dL (8.4-25.7); Calc. Creatinine Clearance 0 mL/min (70-130); Calcium 9.1 mg/dL (7.8-10.44); Carbon Dioxide 34 mmol/L (23-31); Chloride 90 mmol/L (98-107); Estimated GFR 47; Glucose 217 mg/dL (80-115); Potassium 3.6 mmol/L (3.5-5.1); Sodium 135 mmol/L (136-145)
== END 2022-02-04 21:13 | disposition home or self-care (01) ==
LOC: ERS 18:31
DX: N17.9 Acute kidney failure, unspecified (principal); B34.9 Viral infection, unspecified; I25.10 Atherosclerotic heart disease of native coronary artery without angina pectoris; I11.0 Hypertensive heart disease with heart failure; I50.9 Heart failure, unspecified; E11.9 Type 2 diabetes mellitus without complications; M10.9 Gout, unspecified; E78.5 Hyperlipidemia, unspecified; K21.9 Gastro-esophageal reflux disease without esophagitis; Z20.822 Contact with and (suspected) exposure to COVID-19; Z79.82 Long term (current) use of aspirin; Z79.899 Other long term (current) drug therapy; Z79.4 Long term (current) use of insulin
CPT/HCPCS: 70450; 71045; 80048; 85025; U0003; U0005; 36415; 96365; 96366; J2765

== ENCOUNTER 2022-02-06 19:33 | Inpatient (IN) | payer OTHER ==
[2022-02-06 20:19] LABS: #Basophils 0.1 thou/uL (0.0-0.2); #Eosinphils 0.6 thou/uL (0.0-0.7); #Lymphocytes 2.8 thou/uL (1.20-3.40); #Monocytes 0.8 thou/uL (0.11-0.59); #Neutrophils 5.1 thou/uL (1.40-6.50); %Basophils 0.9 % (0.0-1.0); %Lymphocytes 30.2 % (21.0-51.0); %Monocytes 8.2 % (0.0-10.0); %Neutrophils 54.7 % (42.0-75.0); Hemoglobin 13.3 g/dL (14.0-18.0); Mean Corpuscular HGB CONC 32.4 g/dL (32.0-36.0); Mean Corpuscular Hemoglobin 27.3 pg (27.0-31.0); Mean Corpuscular Volume 84.5 fL (78.0-98.0); Mean Platelet Volume 10.6 fL (7.4-10.4); Platelet Count 151 thou/uL (130-400); RBC Distribution Width 15.7 % (11.5-14.5); Red Blood Cell (RBC) Count 4.86 mill/uL (4.70-6.10); White Blood Cell (WBC) Count 9.3 thou/uL (4.8-10.8)
[2022-02-06 20:34] LABS: ALT (SGPT) 8 U/L (8-55); AST (SGOT) 13 U/L (5-34); Albumin 3.9 g/dL (3.4-4.8); Alkaline Phosphatase 80 U/L (40-110); Anion Gap 16 mmol/L (10-20); BUN (Urea Nitrogen) 24 mg/dL (8.4-25.7); Bilirubin, Total 0.8 mg/dL (0.2-1.2); Calc. Creatinine Clearance 0 mL/min (70-130); Calcium 9.3 mg/dL (7.8-10.44); Carbon Dioxide 33 mmol/L (23-31); Chloride 90 mmol/L (98-107); Estimated GFR 39; Globulin 3.7 g/dL (2.4-3.5); Glucose 199 mg/dL (80-115); Potassium 3.5 mmol/L (3.5-5.1); Protein, Total 7.6 g/dL (5.8-8.1); Sodium 135 mmol/L (136-145)
[2022-02-06] MEDS ORDERED: Acetaminophen 325 MG TAB ONE (21:23)
[2022-02-06] MEDS ORDERED: Aspirin Chewable 81 MG TAB ONE (22:52)
[2022-02-07 01:46] VITALS: BMI 47.5
[2022-02-07] MEDS ORDERED: Dextrose 50% Abboject 50 ML SYRINGE SLOW IVP PRN (01:47)
[2022-02-07] MEDS ORDERED: HumaLOG 300 UNITS/3 ML VIAL SC PRN (01:47)
[2022-02-07] MEDS ORDERED: Dextrose 5% in Water 1,000 ML IV PRN (01:47)
[2022-02-07] MEDS ORDERED: Enoxaparin Sodium 30 MG/0.3 ML SYRINGE SC SCH (02:00)
[2022-02-07 05:09] LABS: Hemoglobin A1c 8.3 % (4.0-6.0)
[2022-02-07 05:10] LABS: #Basophils 0.1 thou/uL (0.0-0.2); #Eosinphils 0.5 thou/uL (0.0-0.7); #Lymphocytes 3.5 thou/uL (1.20-3.40); #Monocytes 0.8 thou/uL (0.11-0.59); #Neutrophils 4.6 thou/uL (1.40-6.50); %Basophils 0.7 % (0.0-1.0); %Eosinophils 5.7 % (0.0-10.0); %Lymphocytes 36.7 % (21.0-51.0); %Monocytes 8.1 % (0.0-10.0); %Neutrophils 48.7 % (42.0-75.0); Hemoglobin 12.3 g/dL (14.0-18.0); Mean Corpuscular Hemoglobin 27.1 pg (27.0-31.0); Mean Corpuscular Volume 82.3 fL (78.0-98.0); Mean Platelet Volume 10.9 fL (7.4-10.4); Platelet Count 135 thou/uL (130-400); Red Blood Cell (RBC) Count 4.54 mill/uL (4.70-6.10); White Blood Cell (WBC) Count 9.5 thou/uL (4.8-10.8)
[2022-02-07 05:26] LABS: Anion Gap 13 mmol/L (10-20); BUN (Urea Nitrogen) 24 mg/dL (8.4-25.7); Calc. Creatinine Clearance 105 mL/min (70-130); Calcium 9.3 mg/dL (7.8-10.44); Carbon Dioxide 33 mmol/L (23-31); Cardiac Risk 5.8 (Less than 4.5); Chloride 92 mmol/L (98-107); Cholesterol 151 mg/dl (< 200 Desired); Estimated GFR 51; Glucose 140 mg/dL (80-115); HDL Cholesterol 26 mg/dL (>60 Neg Risk); LDL Cholesterol, Calculated 80 mg/dL; Potassium 3.4 mmol/L (3.5-5.1); Sodium 135 mmol/L (136-145); Triglycerides 226 mg/dL (Less than 150)
[2022-02-07 05:33] LABS: Troponin I 0.034 ng/mL (< 0.028)
[2022-02-07] MEDS: HumaLOG 300 UNITS/3 ML VIAL SC PRN ×2 (06:34→17:44)
[2022-02-07 08:15] LABS: Troponin I 0.033 ng/mL (< 0.028)
[2022-02-07] MEDS ORDERED: Acetaminophen 325 MG TAB PO SCH (08:45)
[2022-02-07] MEDS: Aspirin 81 mg Enteric Coated Tablet PO SCH (08:54)
[2022-02-07] MEDS: Enoxaparin Sodium 40 MG/0.4 ML SYRINGE SC SCH (08:54)
[2022-02-07] MEDS ORDERED: Potassium Chloride 20 MEQ TAB PO SCH (10:15)
[2022-02-07] MEDS ORDERED: Non-Formulary Item 1 EACH (Albuterol Sulfate [Proair Digihaler] 90 MCG Aer.Pw.Bas) IH PRN (10:21)
[2022-02-07] MEDS ORDERED: Clopidogrel Bisulfate 75 MG TAB PO SCH (11:00)
[2022-02-07] MEDS ORDERED: Albuterol Sulfate 2.5 mg/3 ml Neb NEB PRN (11:13)
[2022-02-07] MEDS ORDERED: Ezetimibe 10 MG TAB PO SCH (11:15)
[2022-02-07] MEDS ORDERED: Acetaminophen 325 MG TAB PO PRN (12:50)
[2022-02-07] MEDS: Carvedilol 6.25 MG TAB PO SCH (18:47)
[2022-02-07] MEDS: DorzolamidE/Timolol 2%/0.5% Ophth Soln 10 ml Bottle EA EYE SCH ×2 (18:48→21:27)
[2022-02-07] MEDS ORDERED: Atorvastatin Calcium 20 MG TAB PO SCH (21:00)
[2022-02-07] MEDS ORDERED: Atorvastatin Calcium 40 MG TAB PO SCH (21:00)
[2022-02-07] MEDS: Sodium Chloride 0.65% Nasal 44 ML BOT EA NARE SCH (21:26)
[2022-02-08 06:43] LABS: #Basophils 0.1 thou/uL (0.0-0.2); #Eosinphils 0.5 thou/uL (0.0-0.7); #Lymphocytes 2.7 thou/uL (1.20-3.40); #Monocytes 0.7 thou/uL (0.11-0.59); #Neutrophils 3.4 thou/uL (1.40-6.50); %Basophils 1.1 % (0.0-1.0); %Eosinophils 6.9 % (0.0-10.0); %Lymphocytes 36.4 % (21.0-51.0); %Monocytes 9.5 % (0.0-10.0); %Neutrophils 46.1 % (42.0-75.0); Hemoglobin 12.2 g/dL (14.0-18.0); Mean Corpuscular HGB CONC 32.3 g/dL (32.0-36.0); Mean Corpuscular Hemoglobin 26.9 pg (27.0-31.0); Mean Corpuscular Volume 83.4 fL (78.0-98.0); Mean Platelet Volume 10.8 fL (7.4-10.4); Platelet Count 133 thou/uL (130-400); RBC Distribution Width 15.9 % (11.5-14.5); Red Blood Cell (RBC) Count 4.54 mill/uL (4.70-6.10); White Blood Cell (WBC) Count 7.4 thou/uL (4.8-10.8)
[2022-02-08 06:59] LABS: Anion Gap 13 mmol/L (10-20); BUN (Urea Nitrogen) 20 mg/dL (8.4-25.7); Calc. Creatinine Clearance 127 mL/min (70-130); Calcium 9.2 mg/dL (7.8-10.44); Carbon Dioxide 32 mmol/L (23-31); Chloride 94 mmol/L (98-107); Estimated GFR 65; Glucose 226 mg/dL (80-115); Potassium 3.9 mmol/L (3.5-5.1); Sodium 135 mmol/L (136-145)
[2022-02-08] MEDS ORDERED: Clopidogrel Bisulfate 75 MG TAB PO SCH (09:00)
[2022-02-08] MEDS ORDERED: Ezetimibe 10 MG TAB PO SCH (09:00)
[2022-02-08] MEDS ORDERED: HUMULIN R SC SCH (09:00)
[2022-02-08] MEDS ORDERED: Allopurinol 300 MG TAB PO SCH (09:00)
[2022-02-08] MEDS ORDERED: Gabapentin 100 MG CAP PO SCH (09:00)
[2022-02-08] MEDS ORDERED: Furosemide 40 MG TAB PO SCH (09:00)
[2022-02-08] MEDS ORDERED: Lidocaine 5% Patch TD SCH (09:00)
[2022-02-08] MEDS ORDERED: Lisinopril 20 MG TAB PO SCH (09:00)
[2022-02-08] MEDS ORDERED: INSULIN REGULAR HUMAN SC SCH (09:00)
[2022-02-08] MEDS: Carvedilol 6.25 MG TAB PO SCH ×2 (09:40→16:54)
[2022-02-08] MEDS: Aspirin 81 mg Enteric Coated Tablet PO SCH (09:43)
[2022-02-08] MEDS: Sodium Chloride 0.65% Nasal 44 ML BOT EA NARE SCH (09:44)
[2022-02-08] MEDS: DorzolamidE/Timolol 2%/0.5% Ophth Soln 10 ml Bottle EA EYE SCH ×2 (09:44→16:55)
[2022-02-08] MEDS: Enoxaparin Sodium 40 MG/0.4 ML SYRINGE SC SCH (09:47)
[2022-02-08] MEDS ORDERED: Insulin Glargine 30 UNITS/0.3 ML VIAL SC SCH (12:00)
[2022-02-08] MEDS: HumaLOG 300 UNITS/3 ML VIAL SC PRN (13:10)
[2022-02-08 16:22] VITALS: TEMP 98
[2022-02-08 16:44] VITALS: BP 129/84
[2022-02-08] MEDS ORDERED: Pancrelipase DR 12,000 1 CAP ONE (16:59)
[2022-02-08] MEDS ORDERED: Transdermal Patch Removal TOP SCH (21:00)
== END 2022-02-08 18:11 | disposition home health service (06) | DRG 65 ==
LOC: ERS 19:33 → NEURO 23:03
PROVIDERS: ADMIT Family Medicine; ATTEND Family Medicine
PROC: 4A10X4Z Monitoring of Central Nervous Electrical Activity, External Approach (ICD-10-PCS; principal; 2022-02-07)
DX: I63.331 Cerebral infarction due to thrombosis of right posterior cerebral artery (principal); N17.9 Acute kidney failure, unspecified; Z68.42 Body mass index [BMI] 45.0-49.9, adult; I13.0 Hypertensive heart and chronic kidney disease with heart failure and stage 1 through stage 4 chronic kidney disease, or unspecified chronic kidney disease; I50.32 Chronic diastolic (congestive) heart failure; M10.9 Gout, unspecified; E78.5 Hyperlipidemia, unspecified; K21.9 Gastro-esophageal reflux disease without esophagitis; D63.1 Anemia in chronic kidney disease; I25.10 Atherosclerotic heart disease of native coronary artery without angina pectoris; E11.39 Type 2 diabetes mellitus with other diabetic ophthalmic complication; H42 Glaucoma in diseases classified elsewhere; N18.2 Chronic kidney disease, stage 2 (mild); E11.22 Type 2 diabetes mellitus with diabetic chronic kidney disease; E66.01 Morbid (severe) obesity due to excess calories; Z20.822 Contact with and (suspected) exposure to COVID-19; Z90.49 Acquired absence of other specified parts of digestive tract; Z88.5 Allergy status to narcotic agent; Z95.1 Presence of aortocoronary bypass graft; Z79.82 Long term (current) use of aspirin; Z79.4 Long term (current) use of insulin; Z79.51 Long term (current) use of inhaled steroids; Z79.899 Other long term (current) drug therapy
CPT/HCPCS: 36415; 36416; 70450; 70496; 70498; 71045; 80048; 80053; 80061; 83036; 84443; 84484; 85025; 93005; 95712; 95819; 95957; J1650; J1815; Q9967; U0003; U0005

== ENCOUNTER 2022-03-23 21:53 | Emergency (ER) | payer OTHER ==
[2022-03-23 22:28] LABS: #Basophils 0.1 thou/uL (0.0-0.2); #Eosinphils 0.6 thou/uL (0.0-0.7); #Lymphocytes 2.6 thou/uL (1.20-3.40); #Monocytes 0.7 thou/uL (0.11-0.59); #Neutrophils 3.5 thou/uL (1.40-6.50); %Basophils 1.6 % (0.0-1.0); %Eosinophils 8.1 % (0.0-10.0); %Lymphocytes 34.8 % (21.0-51.0); %Monocytes 8.8 % (0.0-10.0); %Neutrophils 46.7 % (42.0-75.0); Hemoglobin 12.4 g/dL (14.0-18.0); Mean Corpuscular Hemoglobin 26.7 pg (27.0-31.0); Mean Corpuscular Volume 83.4 fL (78.0-98.0); Platelet Count 162 thou/uL (130-400); RBC Distribution Width 16.6 % (11.5-14.5); Red Blood Cell (RBC) Count 4.66 mill/uL (4.70-6.10); White Blood Cell (WBC) Count 7.4 thou/uL (4.8-10.8)
[2022-03-23] MEDS ORDERED: Morphine 4 MG/ML VIAL ONE (22:41)
[2022-03-23 22:49] LABS: ALT (SGPT) 14 U/L (8-55); AST (SGOT) 19 U/L (5-34); Albumin 4.2 g/dL (3.4-4.8); Alkaline Phosphatase 80 U/L (40-110); Anion Gap 13 mmol/L (10-20); BUN (Urea Nitrogen) 34 mg/dL (8.4-25.7); Bilirubin, Total 0.7 mg/dL (0.2-1.2); Calc. Creatinine Clearance 0 mL/min (70-130); Calcium 9.9 mg/dL (7.8-10.44); Carbon Dioxide 32 mmol/L (23-31); Chloride 92 mmol/L (98-107); Estimated GFR 42; Globulin 4.2 g/dL (2.4-3.5); Glucose 133 mg/dL (80-115); Potassium 3.8 mmol/L (3.5-5.1); Protein, Total 8.4 g/dL (5.8-8.1); Sodium 133 mmol/L (136-145)
== END 2022-03-24 02:06 | disposition home or self-care (01) ==
LOC: ERS 21:53
DX: R07.9 Chest pain, unspecified (principal); I11.0 Hypertensive heart disease with heart failure; I50.9 Heart failure, unspecified; E11.9 Type 2 diabetes mellitus without complications; E78.5 Hyperlipidemia, unspecified; K21.9 Gastro-esophageal reflux disease without esophagitis; E66.9 Obesity, unspecified; Z79.82 Long term (current) use of aspirin; Z79.899 Other long term (current) drug therapy
CPT/HCPCS: 36415; 71045; 80053; 83880; 84484; 85025; 93005; 96374; J2270

== ENCOUNTER 2023-01-29 05:22 | Emergency (ER) | payer MEDICARE, OTHER ==
[2023-01-29 05:59] LABS: #Eosinphils 0.6 thou/uL (0.0-0.7); %Eosinophils 9.3 % (0.0-10.0); Hemoglobin 11.9 g/dL (14.0-18.0); RBC Distribution Width 15.1 % (11.5-14.5); White Blood Cell (WBC) Count 6.4 10x3/uL (4.8-10.8)
[2023-01-29 06:22] LABS: ALT (SGPT) 11 U/L (8-55); AST (SGOT) 12 U/L (5-34); Albumin 3.7 g/dL (3.4-4.8); Alkaline Phosphatase 73 U/L (40-110); Anion Gap 16 mmol/L (10-20); BUN (Urea Nitrogen) 18 mg/dL (8.4-25.7); Bilirubin, Total 0.4 mg/dL (0.2-1.2); Calc. Creatinine Clearance 0 mL/min (70-130); Calcium 8.9 mg/dL (7.8-10.44); Carbon Dioxide 36 mmol/L (23-31); Chloride 92 mmol/L (98-107); Estimated GFR 54; Globulin 3.4 g/dL (2.4-3.5); Glucose 275 mg/dL (80-115); Potassium 3.5 mmol/L (3.5-5.1); Protein, Total 7.1 g/dL (5.8-8.1); Sodium 140 mmol/L (136-145)
[2023-01-29 06:30] LABS: #Monocytes 0.6 thou/uL (0.11-0.59); #Neutrophils 2.6 thou/uL (1.40-6.50); %Basophils 0.6 % (0.0-1.0); %Lymphocytes 41.3 % (21.0-51.0); %Monocytes 8.6 % (0.0-10.0); %Neutrophils 39.9 % (42.0-75.0); Mean Corpuscular HGB CONC 31.9 g/dL (32.0-36.0); Mean Corpuscular Hemoglobin 26.8 pg (27.0-31.0); Mean Platelet Volume 12.1 fL (7.4-10.4); Platelet Count 141 10x3/uL (130-400); Red Blood Cell (RBC) Count 4.44 mill/uL (4.70-6.10)
[2023-01-29] MEDS ORDERED: Capsaicin 0.025% Cream 60 gm Tube TOP SCH (07:00)
[2023-01-29 09:36] LABS: Troponin I Less than 0.010 ng/mL (< 0.028)
== END 2023-01-29 10:29 | disposition home or self-care (01) ==
LOC: ERS 05:22
DX: R07.2 Precordial pain (principal); L91.0 Hypertrophic scar; I11.0 Hypertensive heart disease with heart failure; I50.9 Heart failure, unspecified; E11.9 Type 2 diabetes mellitus without complications; K21.9 Gastro-esophageal reflux disease without esophagitis; E78.5 Hyperlipidemia, unspecified; Z79.4 Long term (current) use of insulin; Z79.899 Other long term (current) drug therapy; Z79.82 Long term (current) use of aspirin
CPT/HCPCS: 36415; 71045; 80053; 83880; 84484; 85025; 93005

== ENCOUNTER 2023-07-11 11:42 | Emergency (ER) | payer OTHER ==
[2023-07-11 14:32] LABS: #Basophils 0.1 thou/uL (0.0-0.2); #Eosinphils 0.5 thou/uL (0.0-0.7); #Monocytes 0.7 thou/uL (0.11-0.59); %Basophils 0.6 % (0.0-1.0); %Eosinophils 6.5 % (0.0-10.0); %Lymphocytes 22.9 % (21.0-51.0); %Neutrophils 61.9 % (42.0-75.0); Hemoglobin 12.3 g/dL (14.0-18.0); Mean Corpuscular HGB CONC 32.4 g/dL (32.0-36.0); Mean Corpuscular Hemoglobin 26.9 pg (27.0-31.0); Mean Platelet Volume 11.1 fL (7.4-10.4); Platelet Count 179 10x3/uL (130-400); RBC Distribution Width 15.3 % (11.5-14.5); Red Blood Cell (RBC) Count 4.58 mill/uL (4.70-6.10); White Blood Cell (WBC) Count 8.1 10x3/uL (4.8-10.8)
[2023-07-11] MEDS ORDERED: traMADol HCl 50 MG TAB ONE (14:38)
[2023-07-11 15:02] LABS: ALT (SGPT) 10 U/L (8-55); AST (SGOT) 16 U/L (5-34); Albumin 3.7 g/dL (3.4-4.8); Alkaline Phosphatase 73 U/L (40-110); Anion Gap 14 mmol/L (10-20); BUN (Urea Nitrogen) 27 mg/dL (8.4-25.7); Bilirubin, Total 1.3 mg/dL (0.2-1.2); Calc. Creatinine Clearance 0 mL/min (70-130); Carbon Dioxide 31 mmol/L (23-31); Chloride 89 mmol/L (98-107); Estimated GFR 51; Globulin 3.9 g/dL (2.4-3.5); Glucose 292 mg/dL (80-115); Potassium 3.5 mmol/L (3.5-5.1); Protein, Total 7.6 g/dL (5.8-8.1); Sodium 130 mmol/L (136-145)
== END 2023-07-11 16:50 | disposition home or self-care (01) ==
LOC: ERS 11:42
DX: S92.355A Nondisplaced fracture of fifth metatarsal bone, left foot, initial encounter for closed fracture (principal); L03.116 Cellulitis of left lower limb; I10 Essential (primary) hypertension; E11.9 Type 2 diabetes mellitus without complications; X58.XXXA Exposure to other specified factors, initial encounter
CPT/HCPCS: 36415; 80053; 83605; 85025

== ENCOUNTER 2023-08-13 14:57 | Emergency (ER) | payer OTHER ==
[2023-08-13 16:31] LABS: #Eosinphils 0.5 thou/uL (0.0-0.7); #Monocytes 0.5 thou/uL (0.11-0.59); %Basophils 0.4 % (0.0-1.0); %Eosinophils 7.3 % (0.0-10.0); %Lymphocytes 29.5 % (21.0-51.0); %Monocytes 6.6 % (0.0-10.0); %Neutrophils 55.9 % (42.0-75.0); Hematocrit 38.8 % (42.0-52.0); Hemoglobin 12.4 g/dL (14.0-18.0); Mean Corpuscular Hemoglobin 26.6 pg (27.0-31.0); Mean Corpuscular Volume 83.1 fl (78.0-98.0); Mean Platelet Volume 11.8 fL (7.4-10.4); Platelet Count 174 10x3/uL (130-400); RBC Distribution Width 15.6 % (11.5-14.5); Red Blood Cell (RBC) Count 4.67 mill/uL (4.70-6.10); White Blood Cell (WBC) Count 7.1 10x3/uL (4.8-10.8)
[2023-08-13 17:02] LABS: ALT (SGPT) 12 U/L (8-55); AST (SGOT) 16 U/L (5-34); Albumin 3.7 g/dL (3.4-4.8); Alkaline Phosphatase 74 U/L (40-110); Anion Gap 14 mmol/L (10-20); BUN (Urea Nitrogen) 17 mg/dL (8.4-25.7); Bilirubin, Total 0.6 mg/dL (0.2-1.2); Calc. Creatinine Clearance 0 mL/min (70-130); Calcium 9.1 mg/dL (7.8-10.44); Carbon Dioxide 29 mmol/L (23-31); Chloride 93 mmol/L (98-107); Estimated GFR 48; Glucose 365 mg/dL (80-115); Potassium 3.4 mmol/L (3.5-5.1); Protein, Total 7.7 g/dL (5.8-8.1); Sodium 133 mmol/L (136-145)
[2023-08-13 17:05] LABS: Troponin I 0.015 ng/mL (< 0.028)
[2023-08-13] MEDS ORDERED: Acetaminophen 500 MG TAB ONE (18:16)
== END 2023-08-13 18:43 | disposition home or self-care (01) ==
LOC: ERS 14:57
DX: S00.03XA Contusion of scalp, initial encounter (principal); I11.0 Hypertensive heart disease with heart failure; I50.9 Heart failure, unspecified; E11.9 Type 2 diabetes mellitus without complications; K21.9 Gastro-esophageal reflux disease without esophagitis; E78.5 Hyperlipidemia, unspecified; I25.810 Atherosclerosis of coronary artery bypass graft(s) without angina pectoris; M10.9 Gout, unspecified; E66.9 Obesity, unspecified; W19.XXXA Unspecified fall, initial encounter; Z55.6 Problems related to health literacy; Z79.4 Long term (current) use of insulin; Z79.82 Long term (current) use of aspirin; Z79.899 Other long term (current) drug therapy
CPT/HCPCS: 36416; 70450; 71045; 80053; 84484; 85025; 93005

== ENCOUNTER 2024-02-09 00:22 | Emergency (ER) | payer OTHER, SELFPAY ==
[2024-02-09 01:17] LABS: Actual Bicarbonate (HCO3v) 34.6 mEq/L (22-28); Calcium, Ionized (venous) 1.06 mmol/L (1.16-1.32); Chloride (VBG) 93 mmol/L (98-106); Hematocrit-VBG 33 % (42.0-52.0); Hemoglobin (Hb) 11.1 g/dL (12.6-17.4); Potassium (VBG) 3.13 mmol/L (3.70-5.30); Sodium 138 mmol/L (133-146); pH (venous) 7.437 (7.32-7.43)
[2024-02-09 01:26] LABS: #Basophils Less than 0.03 10x3/uL (0.0-0.2); %Basophils 0.3 % (0.0-1.0); %Eosinophils 4.6 % (0.0-10.0); %Monocytes 10.6 % (0.0-10.0); %Neutrophils 62.4 % (42.0-75.0); Hematocrit 30.7 % (42.0-52.0); Hemoglobin 9.8 g/dL (14.0-18.0); Mean Corpuscular HGB CONC 31.9 g/dL (32.0-36.0); Mean Corpuscular Hemoglobin 26.3 pg (27.0-31.0); Mean Corpuscular Volume 82.5 fL (78.0-98.0); Mean Platelet Volume 10.8 fL (7.4-10.4); Platelet Count 167 10x3/uL (130-400); RBC Distribution Width 15.3 % (11.5-14.5); Red Blood Cell (RBC) Count 3.72 mill/uL (4.70-6.10)
[2024-02-09 01:40] LABS: INR-International Normal Ratio 1.1; Prothrombin Time 14.6 sec (12.0-14.7)
[2024-02-09 01:41] LABS: PTT 37.8 sec (22.9-36.1)
[2024-02-09 01:45] LABS: Lipase 11 U/L (8-78); Magnesium 1.6 mg/dL (1.6-2.6)
[2024-02-09 01:47] LABS: Troponin I 0.025 ng/mL (< 0.028)
[2024-02-09] MEDS ORDERED: Sodium Chloride 0.9% 100 ML ONE (03:36)
[2024-02-09 04:00] LABS: Bacteria/HPF None Seen HPF (None Seen); Bilirubin Negative (Negative); Blood, Urine Negative (Negative); CAUTI Indications for Culture Alt mental st,lethar; Clarity Clear (Clear); Glucose, Urine (Dipstick) >=1000 mg/dL (Negative); Ketone, Urine Negative (Negative); Leukocyte Negative Leu/uL (Negative); Nitrite Negative (Negative); Protein, Urine (Dipstick) Negative (Neg-Trace); RBC/HPF None Seen HPF (0-3); Specific Gravity, Urine 1.011 (1.002-1.036); Squamous Epithelial 0-3 HPF (0-3); Urobilinogen Normal mg/dL (Less than 2); WBC/HPF 0-3 HPF (0-3); pH, Urine 6.5 (5.0-9.0)
[2024-02-09 04:11] LABS: Urine Culture Reflex No No
[2024-02-09 04:43] LABS: Lactic Acid 1.9 mmol/L (0.5-2.2)
[2024-02-09 06:17] LABS: ALT (SGPT) 16 U/L (8-55); AST (SGOT) 45 U/L (5-34); Albumin 3.1 g/dL (3.4-4.8); Alkaline Phosphatase 87 U/L (40-110); Anion Gap 14 mmol/L (10-20); BUN (Urea Nitrogen) 18 mg/dL (8.4-25.7); Bilirubin, Total 0.5 mg/dL (0.2-1.2); Calc. Creatinine Clearance 0 mL/min (70-130); Calcium 9.3 mg/dL (7.8-10.44); Carbon Dioxide 33 mmol/L (23-31); Chloride 95 mmol/L (98-107); Estimated GFR 48; Globulin 4.6 g/dL (2.4-3.5); Glucose 340 mg/dL (80-115); Protein, Total 7.7 g/dL (5.8-8.1); Sodium 138 mmol/L (136-145)
[2024-02-09] MEDS ORDERED: Insulin Regular, Human 100 UNIT/ML 10 ML VIAL ONE (08:12)
== END 2024-02-09 09:30 | disposition home or self-care (01) ==
LOC: ERS 00:22
DX: E11.65 Type 2 diabetes mellitus with hyperglycemia (principal); I11.0 Hypertensive heart disease with heart failure; I50.9 Heart failure, unspecified; E78.5 Hyperlipidemia, unspecified; Z95.0 Presence of cardiac pacemaker; Z79.4 Long term (current) use of insulin; Z79.899 Other long term (current) drug therapy; Z79.82 Long term (current) use of aspirin
CPT/HCPCS: 36415; 36416; 70450; 71045; 80053; 81001; 82010; 82140; 82805; 83605; 83690; 83735; 83880; 84443; 84484; 85025; 85610; 85730; 87040; 93005; 96374; 96375; J1815

== ENCOUNTER 2024-08-30 09:08 | Emergency (ER) | payer OTHER ==
[2024-08-30 09:37] LABS: #Basophils Less than 0.03 10x3/uL (0.0-0.2); %Basophils 0.3 % (0.0-1.0); %Eosinophils 3.1 % (0.0-10.0); %Lymphocytes 27.8 % (21.0-51.0); %Monocytes 9.4 % (0.0-10.0); %Neutrophils 59.2 % (42.0-75.0); Hematocrit 32.8 % (42.0-52.0); Hemoglobin 10.6 g/dL (14.0-18.0); Mean Corpuscular HGB CONC 32.3 g/dL (32.0-36.0); Mean Corpuscular Hemoglobin 25.9 pg (27.0-31.0); Mean Platelet Volume 9.6 fL (7.4-10.4); Platelet Count 145 10x3/uL (130-400); RBC Distribution Width 17.1 % (11.5-14.5)
[2024-08-30] MEDS ORDERED: Morphine 4 MG/ML VIAL ONE (09:40)
[2024-08-30] MEDS ORDERED: Ondansetron PF 4 MG/2 ML Vial ONE (09:40)
[2024-08-30 09:58] LABS: ALT (SGPT) 10 U/L (Less than 45); AST (SGOT) 24 U/L (11-34); Albumin 3.2 g/dL (3.1-4.5); Alkaline Phosphatase 93 U/L (40-110); Anion Gap 13 mmol/L (10-20); BUN (Urea Nitrogen) 26 mg/dL (8.4-25.7); Bilirubin, Total 0.4 mg/dL (0.3-1.2); Calc. Creatinine Clearance 0 mL/min (70-130); Calcium 9.3 mg/dL (7.8-10.44); Carbon Dioxide 31 mmol/L (23-31); Chloride 96 mmol/L (98-107); Estimated GFR 52; Globulin 4.3 g/dL (2.4-3.5); Glucose 216 mg/dL (83-110); Potassium 3.3 mmol/L (3.5-5.1); Protein, Total 7.5 g/dL (5.8-8.1); Sodium 137 mmol/L (136-145)
[2024-08-30] MEDS ORDERED: HYDROmorphone 0.5 MG/0.5 ML SYRINGE ONE (10:38)
[2024-08-30] MEDS ORDERED: Furosemide 20 MG (2 mL) VIAL ONE (10:39)
[2024-08-30] MEDS ORDERED: Potassium Chloride 20 MEQ TAB ONE (10:39)
== END 2024-08-30 11:00 | disposition home or self-care (01) ==
LOC: ERS 09:08
DX: M79.604 Pain in right leg (principal); I87.8 Other specified disorders of veins; I11.0 Hypertensive heart disease with heart failure; I50.9 Heart failure, unspecified; E11.9 Type 2 diabetes mellitus without complications; Z55.6 Problems related to health literacy; Z79.4 Long term (current) use of insulin; Z79.82 Long term (current) use of aspirin; Z79.02 Long term (current) use of antithrombotics/antiplatelets; Z79.899 Other long term (current) drug therapy; Z95.1 Presence of aortocoronary bypass graft
CPT/HCPCS: 80053; 85025; 93005; 94760; 96374; 96375; J1171; J1940; J2270; J2405

== ENCOUNTER 2025-05-28 10:55 | Emergency (ER) | payer MEDICARE, OTHER ==
[2025-05-28 11:20] LABS: #Basophils Less than 0.03 10x3/uL (0.0-0.2); #Eosinophils 0.13 10x3/uL (0.0-0.7); #Monocytes 0.35 10x3/uL (0.11-0.59); #Neutrophils 3.12 10x3/uL (1.40-6.50); %Basophils 0.4 % (0.0-1.0); %Eosinophils 2.5 % (0.0-10.0); %Lymphocytes 29.4 % (21.0-51.0); %Monocytes 6.8 % (0.0-10.0); %Neutrophils 60.7 % (42.0-75.0); Hematocrit 32.3 % (42.0-52.0); Hemoglobin 10.4 g/dL (14.0-18.0); Mean Corpuscular Hemoglobin 26.2 pg (27.0-31.0); Mean Corpuscular Volume 81.4 fL (78.0-98.0); Platelet Count 150 10x3/uL (130-400); Red Blood Cell (RBC) Count 3.97 mill/uL (4.70-6.10); White Blood Cell (WBC) Count 5.14 10x3/uL (4.8-10.8)
[2025-05-28 11:38] LABS: ALT (SGPT) 19 U/L (Less than 45); AST (SGOT) 27 U/L (11-34); Albumin 3.6 g/dL (3.1-4.5); Alkaline Phosphatase 44 U/L (40-110); Anion Gap 13 mmol/L (10-20); BUN (Urea Nitrogen) 10 mg/dL (8.4-25.7); Bilirubin, Total 0.8 mg/dL (0.3-1.2); Calc. Creatinine Clearance 0 mL/min (70-130); Calcium 9.4 mg/dL (7.8-10.44); Carbon Dioxide 27 mmol/L (23-31); Chloride 107 mmol/L (98-107); Globulin 3.4 g/dL (2.4-3.5); Glucose 102 mg/dL (83-110); Potassium 4.2 mmol/L (3.5-5.1); Sodium 143 mmol/L (136-145)
== END 2025-05-28 12:58 | disposition home or self-care (01) ==
LOC: ERS 10:55
DX: S91.352A Open bite, left foot, initial encounter (principal); S91.351A Open bite, right foot, initial encounter; E11.9 Type 2 diabetes mellitus without complications; I11.0 Hypertensive heart disease with heart failure; I50.9 Heart failure, unspecified; W53.11XA Bitten by rat, initial encounter; Z23 Encounter for immunization
CPT/HCPCS: 80053; 85025; 86141; 90471; 90715

== ENCOUNTER 2025-06-02 19:01 | Emergency (ER) | payer OTHER | END 2025-06-02 20:21 | disposition home or self-care (01) | LOC: ERS 19:01 | DX: L03.012 Cellulitis of left finger (principal); I11.0 Hypertensive heart disease with heart failure; I50.9 Heart failure, unspecified; E11.9 Type 2 diabetes mellitus without complications; Z95.1 Presence of aortocoronary bypass graft | CPT/HCPCS: 10060 ==